=== PATIENT | female | born 1980 | race Hispanic/Latino ===

== ENCOUNTER 2018-11-05 13:39 | Emergency (ER) | payer OTHER, SELFPAY ==
[2018-11-05] MEDS ORDERED: MECLIZINE HCL 12.5 MG TAB ONE ×3 (15:18→18:47)
[2018-11-05] MEDS ORDERED: NA CHLORIDE 0.9% 1,000 ML ONE (15:19)
[2018-11-05] MEDS ORDERED: DIPHENHYDRAMINE 50 MG/ML VIAL ONE (15:19)
[2018-11-05] MEDS ORDERED: ONDANSETRON 4 MG/2 ML VIAL ONE (15:19)
[2018-11-05] MEDS ORDERED: DIAZEPAM 10 MG/2 ML INJ SYRINGE ONE (15:20)
[2018-11-05 16:29] LABS: Albumin 3.7 g/dL (3.4-5.0); Bilirubin Total 0.2 mg/dL (0.2-1.0); Potassium 3.6 mmol/L (3.5-5.1); Protein, Total 8.2 g/dL (6.4-8.2)
[2018-11-05] MEDS ORDERED: PROMETHAZINE 25 MG/ML VIAL ONE (17:12)
--- NOTE | 2018-11-05 18:02 | RAD REPORT ---
EXAM DESCRIPTION: CT - Head Brain Wo Cont - 11/05/2018 5:55 pm CLINICAL HISTORY: DIZZINESS Headache, drowsiness COMPARISON: No comparisons TECHNIQUE: All CT scans are performed using dose optimization technique as appropriate and may inclu de automated exposure control or mA/KV adjustment according to patient size. FINDINGS: No intracranial hemorrhage, hydrocephalus or extra-axial fluid collection.No areas of brai n edema or evidence of midline shift. The paranasal sinuses and mastoids are clear. The calvarium is intact. IMPRESSION: No acute intracranial abnormality.
[2018-11-05 19:40] LABS: Urine Blood TRACE (NEG); Urine Glucose NEGATIVE (NEG); Urine Protein NEGATIVE (NEG); Urine pH 5.5 (5.0-7.0)
--- NOTE | 2018-11-05 20:02 | ER ---
Nurse's Notes [facility] Name: Chelsie Mcclellan Age: 38 yrs Sex: Female : 1980 Arrival Date: 11/05/2018 Time: 13:42 Bed 14 Private MD: Diagnosis: Benign paroxysmal vertigo Presentation: 11/05 13:40 Presenting complaint: EMS states: pt was at work, became very dizzy and nauseated, has sg been vomiting ever since pt is iraqi speaking only. Transition of care: patient was not received from another setting of care. Onset of symptoms was November 05, 2018. Risk Assessment: Do you want to hurt yourself or someone else? Patient reports no desire to harm self or others. Initial Sepsis Screen: Does the patient meet any 2 criteria? No. Patient's initial sepsis screen is negative. Does the patient have a suspected source of infection? No. Patient's initial sepsis screen is negative. Care prior to arrival: None. 13:40 Method Of Arrival: EMS: [facility] sg 13:40 Acuity: KRUPA 3 sg Historical: - Allergies: 13:57 No Known Allergies; sg - Home Meds: 15:23 None [Active]; sg - PMHx: 15:23 Vertigo; sg - PSHx: 13:57 ; sg - Immunization history:: Adult Immunizations up to date. - Social history:: Smoking status: Patient/guardian denies using tobacco, Patient/guardian denies using alcohol, street drugs, The patient lives with family. - Ebola Screening: : Patient negative for fever greater than or equal to 101.5 degrees Fahrenheit, and additional compatible Ebola Virus Disease symptoms Patient denies exposure to infectious person Patient denies travel to an Ebola-affected area in the 21 days before illness onset No symptoms or risks identified at this time. - Family history:: not pertinent. Screenin:26 Abuse screen: Denies threats or abuse. Denies injuries from another. Nutritional sg screening: No deficits noted. Tuberculosis screening: No symptoms or risk factors identified. Never had TB. Fall Risk None identified. Assessment: 13:50 General: Appears in no apparent distress. uncomfortable, ill, well groomed, well sg developed, well nourished, Behavior is cooperative, appropriate for age. Pain: Denies pain. Neuro: Level of Consciousness is awake, alert, obeys commands, Oriented to person, place, time, situation, Manager Filter are equal bilaterally Speech is normal, Facial symmetry appears normal, Reports dizziness. Cardiovascular: Capillary refill is brisk in bilateral fingers Patient's skin is warm and dry. Chest pain is denied. Respiratory: Airway is patent Respiratory effort is even, unlabored, Respiratory pattern is regular, symmetrical. GI: Abdomen is round non-distended, Pt is actively vomiting bile, undigested food, Bowel sounds present X 4 quads. Reports nausea, vomiting. : No signs and/or symptoms were reported regarding the genitourinary system. EENT: No signs and/or symptoms were reported regarding the EENT system. Derm: Skin is intact, is healthy with good turgor, Skin is clammy, Skin is normal, Skin temperature is cool. Musculoskeletal: No signs and/or symptoms reported regarding the musculoskeletal system. 14:55 Reassessment: Patient appears in no apparent distress at this time. Patient and/or sg family updated on plan of care and expected duration. Pain level reassessed. Patient states symptoms have not improved. 15:50 Reassessment: Patient appears in no apparent distress at this time. Patient and/or sg family updated on plan of care and expected duration. Pain level reassessed. pt assisted to the ER restroom, pod 2 via wheelchair, pt reports increased dizziness and nausea while sitting upright in the chair, pt in restrom, actively vomiting noted, pt daughter remains in restroom with pt for safety and assist Patient states symptoms have not improved. 16:30 Reassessment: Patient appears in no apparent distress at this time. Patient and/or sg family updated on plan of care and expected duration. Pain level reassessed. Patient states symptoms have not improved. 17:40 Reassessment: pt offered IVP of Valium 10mg, pt refused per pt daughter due to " it sg just makes me sleepy, it doesn't help with the dizziness." pt reports she will take the PO meclizine as ordered. 18:30 Reassessment: Patient appears in no apparent distress at this time. Patient and/or sg family updated on plan of care and expected duration. Pain level reassessed. pt assisted to ER restroom, tolerated well, denies any nausea or vomiting at this time, reports dizziness remains, will continue to monitor. 19:17 General: Appears in no apparent distress. Behavior is calm, cooperative, appropriate tl2 for age. General: holding valium. Pt is resting comfortably. . Pain: Denies pain. Neuro: Level of Consciousness is awake, alert, obeys commands, Oriented to person, place, time, situation, Reports dizziness, dizziness has improved since treatment. Cardiovascular: Denies chest pain. Respiratory: Airway is patent Respiratory effort is even, unlabored, Respiratory pattern is regular, symmetrical. GI: No signs and/or symptoms were reported involving the gastrointestinal system. GI: Abdomen is non-distended, Reports nausea. : No signs and/or symptoms were reported regarding the genitourinary system. Derm: Skin is pink, warm \\T\\ dry. 19:56 Reassessment: Pt was able to ambulate to restroom with assistance. tl2 20:22 Reassessment: Patient appears in no apparent distress at this time. Patient and/or tl2 family updated on plan of care and expected duration. Pain level reassessed. pt and family verbalized understanding of discharge instructions, need for follow up and prescription usage Patient states feeling better. Vital Signs: 13:56 BP 132 / 88; Pulse 77; Resp 19; Temp 97.7; Pulse Ox 100% ; Pain 0/10; sg 15:27 BP 142 / 80; Pulse 72; Resp 17; Pulse Ox 99% on R/A; Pain 0/10; sg 19:16 BP 129 / 73; Pulse 62; Resp 18; Pulse Ox 100% on R/A; tl2 ED Course: 13:42 Patient arrived in ED. sg 13:43 Felisha Mathias MD is Attending Physician. ma2 13:43 Arm band placed on. sg 13:56 Triage completed. sg 14:40 Missed attempt(s): 22 gauge in right forearm. Bleeding controlled, band aid applied, sg catheter tip intact. 14:45 unable to obtain labs, phlebotomy has been contacted for assistance, spoke with darrius. sg Inserted saline lock: 22 gauge in right forearm, using aseptic technique. Blood collected. 14:48 EKG done, by pet care technician. reviewed by Felisha Mathias MD. at1 15:05 Partha Jacinto, JIMY is Primary Nurse. sg 17:[address] vm2 17:55 CT Head Brain wo Cont In Process Unspecified. EDMS 17:55 CT completed. Patient tolerated procedure well. Patient moved back from CT. nj 19:18 Patient has correct armband on for positive identification. Bed in low position. Call tl2 light in reach. Side rails up X2. Adult w/ patient. 20:23 No provider procedures requiring assistance completed. IV discontinued, intact, tl2 bleeding controlled, No redness/swelling at site. Pressure dressing applied. Administered Medications: 14:10 CANCELLED (Duplicate Order): Antivert 50 mg PO once ma2 15:20 Drug: NS 0.9% 1000 ml Route: IV; Rate: 1 bolus; Site: right forearm; sg 15:20 Drug: Valium 2 mg Route: IVP; Site: right forearm; sg 16:00 Follow up: Response: No adverse reaction; No change in condition sg 15:20 Drug: Benadryl 25 mg Route: IVP; Site: right forearm; sg 16:30 Follow up: Response: No adverse reaction; No change in condition sg 15:20 Drug: Zofran 4 mg Route: IVP; Site: right forearm; sg 15:56 Follow up: Response: No adverse reaction; Nausea is decreased; Vomiting decreased sg 15:50 Drug: Meclizine 50 mg Route: PO; sg 17:24 Follow up: Response: No adverse reaction; No change in condition sg 17:20 Drug: Phenergan 25 mg Route: IVP; Site: right forearm; sg 18:10 Follow up: Response: No adverse reaction; Nausea is decreased sg 17:40 Drug: Antivert 50 mg Route: PO; sg 20:22 Not Given (Physician Discretion): Valium 10 mg IVP once tl2 Point of Care Testing: Blood Glucose: 15:20 Blood Glucose: 108 mg/dL; sg Ranges: Outcome: 20:02 Discharge ordered by . ma2 20:23 Discharged to home via wheelchair, with family. tl2 20:23 Condition: stable 20:23 Discharge instructions given to patient, family, Instructed on discharge instructions, follow up and referral plans. medication usage, Demonstrated understanding of instructions, follow-up care, medications, Prescriptions given X 2. 20:23 Patient left the ED. tl2 Signatures: Dispatcher [employer] EDMS Partha Jacinto RN RN sg Umm Glass, lime kiln worker EKG Tat1 Usha Soriano RN RN tl2 Barron Maravilla Victoria 2 Felisha Mathias MD MD ma2 Corrections: (The following items were deleted from the chart) 19:24 18:40 Antivert 50 mg PO sg sg
--- NOTE | 2018-11-05 20:03 | EDPHYS ---
Physician Documentation [facility] Name: Chelsie Mcclellan Age: 38 yrs Sex: Female : 1980 Arrival Date: 11/05/2018 Time: 13:42 Bed 14 Private MD: ED Physician Felisha Mathias HPI: 11/05 14:11 This 38 yrs old Female presents to ER via EMS with complaints of ma2 Nausea/Vomiting. 14:11 The patient presents to the emergency department with nausea, vomiting, vertigo. Onset: ma2 The symptoms/episode began/occurred suddenly, 1 hour(s) ago. The symptoms are alleviated by antacids. Associated signs and symptoms: Pertinent negatives: abdominal pain, belching, constipation, diarrhea, fever, GI bleeding, hematuria, nausea. Severity of symptoms: At their worst the symptoms were moderate in the emergency department the symptoms are unchanged. The patient has experienced similar episodes in the past. Historical: - Allergies: 13:57 No Known Allergies; sg - Home Meds: 15:23 None [Active]; sg - PMHx: 15:23 Vertigo; sg - PSHx: 13:57 ; sg - Immunization history:: Adult Immunizations up to date. - Social history:: Smoking status: Patient/guardian denies using tobacco, Patient/guardian denies using alcohol, street drugs, The patient lives with family. - Ebola Screening: : Patient negative for fever greater than or equal to 101.5 degrees Fahrenheit, and additional compatible Ebola Virus Disease symptoms Patient denies exposure to infectious person Patient denies travel to an Ebola-affected area in the 21 days before illness onset No symptoms or risks identified at this time. - Family history:: not pertinent. ROS: 14:11 Constitutional: Negative for fever, chills, and weight loss, Neck: Negative for injury, ma2 pain, and swelling. 14:11 ENT: Positive for vertigo . 14:11 All other systems are negative. Exam: 14:11 Constitutional: This is a well developed, well nourished patient who is awake, alert, ma2 and in no acute distress. Head/Face: Normocephalic, atraumatic. Eyes: Pupils equal round and reactive to light, extra-ocular motions intact. Lids and lashes normal. Conjunctiva and sclera are non-icteric and not injected. Cornea within normal limits. Periorbital areas with no swelling, redness, or edema. ENT: Nares patent. No nasal discharge, no septal abnormalities noted. Tympanic membranes are normal and external auditory canals are clear. Oropharynx with no redness, swelling, or masses, exudates, or evidence of obstruction, uvula midline. Mucous membranes moist. Chest/axilla: Normal chest wall appearance and motion. Nontender with no deformity. No lesions are appreciated. Cardiovascular: Regular rate and rhythm with a normal S1 and S2. No gallops, murmurs, or rubs. Normal PMI, no JVD. No pulse deficits. Respiratory: Lungs have equal breath sounds bilaterally, clear to auscultation and percussion. No rales, rhonchi or wheezes noted. No increased work of breathing, no retractions or nasal flaring. Abdomen/GI: Soft, non-tender, with normal bowel sounds. No distension or tympany. No guarding or rebound. No evidence of tenderness throughout. Skin: Warm, dry with normal turgor. Normal color with no rashes, no lesions, and no evidence of cellulitis. MS/ Extremity: Pulses equal, no cyanosis. Neurovascular intact. Full, normal range of motion. Neuro: Awake and alert, GCS 15, oriented to person, place, time, and situation. Cranial nerves II-XII grossly intact. Motor strength 5/5 in all extremities. Sensory grossly intact. Cerebellar exam normal. Normal gait. Vital Signs: 13:56 BP 132 / 88; Pulse 77; Resp 19; Temp 97.7; Pulse Ox 100% ; Pain 0/10; sg 15:27 BP 142 / 80; Pulse 72; Resp 17; Pulse Ox 99% on R/A; Pain 0/10; sg 19:16 BP 129 / 73; Pulse 62; Resp 18; Pulse Ox 100% on R/A; tl2 MDM: 13:43 Patient medically screened. ma2 14:11 Differential diagnosis: gastritis, gastroenteritis, benign positional vertigo. ma2 17:30 Data reviewed: vital signs, nurses notes. ma2 20:02 Counseling: I had a detailed discussion with the patient and/or guardian regarding: the ct2 historical points, exam findings, and any diagnostic results supporting the discharge/admit diagnosis, the presence of at least one elevated blood pressure reading (>120/80) during this emergency department visit. Response to treatment: the patient's symptoms have resolved after treatment. 11/05 14:09 Order name: CMP; Complete Time: 16:53 ma2 11/05 17:31 Order name: CT Head Brain wo Cont; Complete Time: 20:03 ma2 11/05 17:37 Order name: Urine Dipstick--Ancillary (enter results); Complete Time: 20:03 bd 11/05 17:37 Order name: Urine --Ancillary (enter results); Complete Time: 20:03 bd 11/05 19:11 Order name: Glucose, Ancillary Testing; Complete Time: 20:03 EDMS 11/05 14:09 Order name: Urine Dipstick-Ancillary (obtain specimen); Complete Time: 19:25 ma2 11/05 15:19 Order name: EKG Electrocardiogram EDMS Administered Medications: 14:10 CANCELLED (Duplicate Order): Antivert 50 mg PO once ma2 15:20 Drug: NS 0.9% 1000 ml Route: IV; Rate: 1 bolus; Site: right forearm; sg 15:20 Drug: Valium 2 mg Route: IVP; Site: right forearm; sg 16:00 Follow up: Response: No adverse reaction; No change in condition sg 15:20 Drug: Benadryl 25 mg Route: IVP; Site: right forearm; sg 16:30 Follow up: Response: No adverse reaction; No change in condition sg 15:20 Drug: Zofran 4 mg Route: IVP; Site: right forearm; sg 15:56 Follow up: Response: No adverse reaction; Nausea is decreased; Vomiting decreased sg 15:50 Drug: Meclizine 50 mg Route: PO; sg 17:24 Follow up: Response: No adverse reaction; No change in condition sg 17:20 Drug: Phenergan 25 mg Route: IVP; Site: right forearm; sg 18:10 Follow up: Response: No adverse reaction; Nausea is decreased sg 17:40 Drug: Antivert 50 mg Route: PO; sg 20:22 Not Given (Physician Discretion): Valium 10 mg IVP once tl2 Point of Care Testing: Blood Glucose: 15:20 Blood Glucose: 108 mg/dL; sg Ranges: Critical Glucose Levels:Adult <50 mg/dl or >400 mg/dl <40 mg/dl or >180 mg/dl Disposition: 11/05/18 20:02 Discharged to Home. Impression: Benign paroxysmal vertigo. - Condition is Stable. - Discharge Instructions: Benign Positional Vertigo. - Prescriptions for Meclizine 25 mg Oral Tablet - take 1 tablet by ORAL route every 8 hours As needed; 30 tablet. Valium 2 mg Oral Tablet - take 1 tablet by ORAL route every 8 hours As needed; 20 tablet. - Work release form, Family Work Release, Medication Reconciliation Form, Thank You Letter, Antibiotic Education, Prescription Opioid Use form. - Follow up: Private Physician; When: Tomorrow; Reason: Continuance of care. Signatures: Dispatcher [employer] EDMS Partha Jacinto RN RN sg Usha Soriano RN RN tl2 Felisha Mathias MD MD ma2 Corrections: (The following items were deleted from the chart) 14:10 14:09 Antivert 50 mg PO once ordered. ma2 ma2 20:23 20:02 11/05/2018 20:02 Discharged to Home. Impression: Benign paroxysmal vertigo. tl2 Condition is Stable. Discharge Instructions: Benign Positional Vertigo. Prescriptions for Meclizine 25 mg Oral Tablet - take 1 tablet by ORAL route every 8 hours As needed; 30 tablet, Valium 2 mg Oral Tablet - take 1 tablet by ORAL route every 8 hours As needed; 20 tablet. and Forms are Thank You Letter, Medication Reconciliation Form, Antibiotic Education, Prescription Opioid Use. Follow up: Private Physician; When: Tomorrow; Reason: Continuance of care. ma2
--- NOTE | 2018-11-07 10:31 | EKG ---
Test Date: 2018-11-05 Test Time: 14:14:38 Junior Programmer Analyst: EARLINE MEASUREMENT RESULTS: Intervals: Rate: 92 FL: 148 QRSD: 80 QT: 378 QTc: 467 [place]: P: 51 FL: 148 QRS: 48 T: -12 INTERPRETIVE STATEMENTS: Normal sinus rhythm Non specific T abnormality Abnormal ECG No previous ECG available for comparison Electronically Signed On 11-06-18 08:12:02 CDT by Josh Clay
== END 2018-11-05 20:23 | disposition home or self-care (01) ==
LOC: ER 13:39
DX: H81.10 Benign paroxysmal vertigo, unspecified ear (principal); R11.2 Nausea with vomiting, unspecified
CPT/HCPCS: 36415; 70450; 80053; 81003; 81025; 82962; 93005; 96374; 96375; 99285; J2405; J2550; J3360; J7030

== ENCOUNTER 2019-10-29 20:46 | Emergency (ER) | payer SELFPAY ==
[2019-10-29] MEDS ORDERED: MORPHINE 2 MG/ML SYR ONE (21:49)
[2019-10-29] MEDS ORDERED: ONDANSETRON 4 MG/2 ML VIAL ONE (21:49)
[2019-10-29] MEDS ORDERED: NA CHLORIDE 0.9% 1,000 ML ONE (21:49)
[2019-10-29 21:58] LABS: Absolute Lymphocytes (CBC) 1.8 K/uL (0.7-4.9); Basophils % 0.6 % (0-1.3); Hematocrit 38.9 % (36.0-45.0); Lymphocytes % 15.2 % (15.3-44.8); MPV 10.1 fL (7.6-11.3); RBC Red Blood Cell Count 4.29 M/uL (3.86-4.86)
[2019-10-29 22:22] LABS: ALT/SGPT 25 U/L (12-78); AST/SGOT 13 U/L (15-37); Albumin 3.6 g/dL (3.4-5.0); Alkaline Phosphatase 86 U/L (45-117); BUN Blood Urea Nitrogen 8 mg/dL (7-18); Bicarbonate 25 mmol/L (21-32); Bilirubin Direct < 0.1 mg/dL (0-0.2); Bilirubin Total 0.2 mg/dL (0.2-1.0); Glucose Level 91 mg/dL (74-106); Lipase 88 U/L (73-393); Potassium 3.8 mmol/L (3.5-5.1); Protein, Total 8.3 g/dL (6.4-8.2); Sodium Level 139 mmol/L (136-145)
[2019-10-29 22:51] LABS: Urine Blood 3+ (NEG); Urine Glucose NEGATIVE (NEG); Urine Protein NEGATIVE (NEG); Urine Specific Gravity 1.015 (1.005-1.030)
[2019-10-29 22:53] LABS: Urine Bacteria <20 /HPF (<20); Urine RBC >50 /HPF (NONE SEEN); Urine Urothelial Cells <5 /HPF (NONE SEEN)
[2019-10-29 22:54] LABS: Urine Culture Reflex Order NOT NEEDED
[2019-10-30] MEDS ORDERED: CEFTRIAXONE/SWI 1gm 1 GM/10 ML SYR ONE (00:08)
--- NOTE | 2019-10-30 00:31 | ER ---
Nurse's Notes [facility] Name: Chelsie Mcclellan Age: 39 yrs Sex: Female : 1980 Arrival Date: 10/29/2019 Time: 20:48 Bed 24 Private MD: Diagnosis: Urinary tract infection, site not specified;Calculus of kidney-right Presentation: 10/28 20:53 Chief complaint: Patient states: Abdominal pain since today. Reports nausea. Denies ca1 vomiting and diarrhea. Coronavirus screen: The patient has NOT traveled to a country currently being monitored by the [facility] within the last 14 days. The patient has NOT had contact with any known and/or suspected case of coronavirus. Ebola Screen: Patient negative for fever greater than or equal to 101.5 degrees Fahrenheit, and additional compatible Ebola Virus Disease symptoms Patient denies exposure to infectious person. Patient denies travel to an Ebola-affected area in the 21 days before illness onset. No symptoms or risks identified at this time. Initial Sepsis Screen: Does the patient meet any 2 criteria? No. Patient's initial sepsis screen is negative. Does the patient have a suspected source of infection? No. Patient's initial sepsis screen is negative. Risk Assessment: Do you want to hurt yourself or someone else? Patient reports no desire to harm self or others. Onset of symptoms was October 29, 2019. 20:53 Method Of Arrival: Ambulatory ca1 20:53 Acuity: KRUPA 3 ca1 20:58 Chief complaint: Patient states: Reports 3 positive UPT, 2 negative Serum PT. 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 - Social history:: Smoking status: Patient denies any tobacco usage or history of. Screenin:15 Abuse screen: Denies threats or abuse. Denies injuries from another. Nutritional wh screening: No deficits noted. Tuberculosis screening: No symptoms or risk factors identified. Fall Risk None identified. Assessment: 21:10 General: Appears in no apparent distress. uncomfortable, Behavior is calm, cooperative, wh appropriate for age. Pain: Complains of pain in right upper quadrant and right lower quadrant Pain does not radiate. Pain currently is 8 out of 10 on a pain scale. Quality of pain is described as crampy, Pain began suddenly. Neuro: Level of Consciousness is awake, alert, obeys commands, Oriented to person, place, time, situation, Appropriate for age. Cardiovascular: Heart tones S1 S2. Respiratory: Airway is patent Respiratory effort is even, unlabored, Respiratory pattern is regular, symmetrical, Breath sounds are clear bilaterally. GI: Abdomen is flat, non-distended, Bowel sounds present X 4 quads. Abd is soft Abdomen is tender to palpation in right upper quadrant and right lower quadrant Reports nausea. : No signs and/or symptoms were reported regarding the genitourinary system. EENT: No signs and/or symptoms were reported regarding the EENT system. Derm: Skin is intact, is healthy with good turgor, Skin is pink, warm \T\ dry. normal. Musculoskeletal: Circulation, motion, and sensation intact. 22:03 Reassessment: Patient appears in no apparent distress at this time. No changes from previously documented assessment. Patient and/or family updated on plan of care and expected duration. Pain level reassessed. Patient is alert, oriented x 3, equal unlabored respirations, skin warm/dry/pink. 23:17 Reassessment: Patient appears in no apparent distress at this time. Patient and/or fu family updated on plan of care and expected duration. Pain level reassessed. Patient is alert, oriented x 3, equal unlabored respirations, skin warm/dry/pink. 10/29 00:00 Reassessment: Patient appears in no apparent distress at this time. No changes from previously documented assessment. Patient is alert, oriented x 3, equal unlabored respirations, skin warm/dry/pink. Vital Signs: 10/28 20:55 BP 117 / 73; Pulse 81; Resp 17 S; Temp 98(TE); Pulse Ox 98% on R/A; Weight 77.11 kg ca1 (R); Height 5 ft. 3 in. (160.02 cm); Pain 8/10; 20:58 BP 117 / 73; Pulse 80; Resp 17 S; Temp 98(TE); Pulse Ox 98% on R/A; Weight 77.11 kg ca1 (R); Height 5 ft. 3 in. (160.02 cm) (R); Pain 8/10; 22:03 BP 137 / 79; Pulse 68; Resp 18; Pulse Ox 100% on R/A; wh 23:19 BP 112 / 79; Pulse 72; Resp 18; Pulse Ox 100% on R/A; fu 20:58 Body Mass Index 30.11 (77.11 kg, 160.02 cm) ca1 ED Course: 20:48 Patient arrived in ED. cl3 20:54 Triage completed. ca1 20:55 Arm band placed on right wrist. ca1 20:59 Micah Hughes PA is PHCP. cp 20:59 Cesar Acosta MD is Attending Physician. cp 21:15 Patient has correct armband on for positive identification. Bed in low position. Call light in reach. Side rails up X 1. Pulse ox on. NIBP on. 21:40 Lei Briceño is Primary Nurse. 21:48 Radiology exam delayed due to lab results not completed at this time. (BUN/Creatinine) vm2 test not completed at this time. 21:49 Inserted saline lock: 22 gauge in left forearm, using aseptic technique. jp3 21:49 Initial lab(s) drawn, by nd, sent to lab. Patient maintains SpO2 saturation greater jp3 than 95% on room air. 22:00 Urine collected: clean catch specimen, clear, blood tinged. jp3 22:05 Warm blanket given. Verbal reassurance given. jp3 23:05 CT Abd/Pelvis - IV Contrast Only In Process Unspecified. EDMS 23:18 Primary Nurse role handed off by Lei Briceño fu 23:18 Rolando Brooks, RN is Primary Nurse. fu 23:50 Inserted saline lock: 22 gauge in right hand, using aseptic technique. fu 03 01:00 No provider procedures requiring assistance completed. IV discontinued, bleeding fu controlled, Pressure dressing applied. Administered Medications: 10/28 21:56 Drug: NS 0.9% 1000 ml Route: IV; Rate: 1 bolus; Site: left forearm; 21:58 Drug: morphine 2 mg Route: IVP; Site: left forearm; 22:00 Drug: Zofran (Ondansetron) 4 mg Route: IVP; Site: left forearm; 10/29 00:21 Drug: Rocephin - (cefTRIAXone) 1 grams Route: IVPB; Infused Over: 30 mins; Site: right fu hand; 01:00 Follow up: Response: No adverse reaction fu 00:56 Drug: TORadol - Ketorolac 15 mg Route: IVP; Site: right hand; fu 01:00 Follow up: Response: Medication administered at discharge. fu Outcome: 00:30 Discharge ordered by MD. cp 01:05 Discharged to home ambulatory, with family. fu 01:05 Condition: stable 01:05 Discharge instructions given to patient, family, Instructed on discharge instructions, follow up and referral plans. Demonstrated understanding of instructions, follow-up care, Prescriptions given X 3. 01:08 Patient left the ED. fu Signatures: Dispatcher [employer] EDMS Micah Hughes PA PA cp McGuire, Victoria 2 Lei Briceño Rolando Brooks RN RN Abdias Bella jp3 Raya Zacarias RN RN [facility] Alexx Sneed cl3 Corrections: (The following items were deleted from the chart) 10/28 22:54 22:53 Reassessment: Patient appears in no apparent distress at this time. No changes wh from previously documented assessment. Patient and/or family updated on plan of care and expected duration. Pain level reassessed. Patient is alert/active/playful, equal unlabored respirations, skin warm/dry/pink. Patient states feeling better. 23:19 23:17 Report received from JIMY Odom [facility] [place] 10/29 01:05 01:04 Inserted saline lock: 22 gauge in right hand, using aseptic technique. fu fu
--- NOTE | 2019-10-30 00:31 | EDPHYS ---
Physician Documentation [facility] Name: Chelsie Mcclellan Age: 39 yrs Sex: Female : 1980 Arrival Date: 10/29/2019 Time: 20:48 Bed 24 Private MD: ED Physician Cesar Acosta HPI: 10/28 21:30 This 39 yrs old Female presents to ER via Ambulatory with complaints of cp Abdominal Pain. 21:30 The patient presents with abdominal pain in the right upper quadrant, right lower cp quadrant. Onset: The symptoms/episode began/occurred today. Associated signs and symptoms: Pertinent positives: nausea, vaginal bleeding, Pertinent negatives: constipation, diarrhea, fever, vomiting. Severity of pain: in the emergency department the pain is unchanged despite home interventions. 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 - Social history:: Smoking status: Patient denies any tobacco usage or history of. ROS: 21:40 Constitutional: Negative for body aches, chills, fever, poor PO intake. cp 21:40 Eyes: Negative for injury, pain, redness, and discharge. cp 21:40 ENT: Negative for drainage from ear(s), ear pain, sore throat, difficulty swallowing, difficulty handling secretions. 21:40 Cardiovascular: Negative for chest pain, palpitations. 21:40 Respiratory: Negative for cough, shortness of breath, wheezing. 21:40 Abdomen/GI: Positive for abdominal pain, nausea, of the right upper quadrant and right lower quadrant, Negative for vomiting, diarrhea, constipation, anorexia. 21:40 Back: Negative for radiated pain. 21:40 : Positive for vaginal bleeding. 21:40 Neuro: Negative for altered mental status, headache, weakness. 21:40 All other systems are negative. Exam: 21:45 Constitutional: The patient appears in no acute distress, alert, awake, non-toxic, well cp developed, well nourished. 21:45 Head/Face: Normocephalic, atraumatic. cp 21:45 Eyes: Periorbital structures: appear normal, Conjunctiva: normal, no exudate, no injection, Sclera: no appreciated abnormality, Lids and lashes: appear normal, bilaterally. 21:45 ENT: External ear(s): are unremarkable, Nose: is normal, Mouth: Lips: moist, Oral mucosa: pink and intact, moist, Posterior pharynx: is normal, airway is patent, no erythema, no exudate. 21:45 Chest/axilla: Inspection: normal, Palpation: is normal, no crepitus, no tenderness. 21:45 Cardiovascular: Rate: normal, Rhythm: regular. 21:45 Respiratory: the patient does not display signs of respiratory distress, Respirations: normal, no use of accessory muscles, no retractions, labored breathing, is not present, Breath sounds: are clear throughout, no decreased breath sounds, no stridor, no wheezing. 21:45 Abdomen/GI: Inspection: abdomen appears normal, Bowel sounds: active, all quadrants, Palpation: soft, in all quadrants, moderate abdominal tenderness, in the right upper quadrant and right lower quadrant, rebound tenderness, is not appreciated, voluntary guarding, is elicited in the right upper quadrant and right lower quadrant. 21:45 Back: ROM is normal. 21:45 Skin: no rash present. 21:45 Neuro: Orientation: to person, place \T\ time. Mentation: is normal. Vital Signs: 20:55 BP 117 / 73; Pulse 81; Resp 17 S; Temp 98(TE); Pulse Ox 98% on R/A; Weight 77.11 kg ca1 (R); Height 5 ft. 3 in. (160.02 cm); Pain 8/10; 20:58 BP 117 / 73; Pulse 80; Resp 17 S; Temp 98(TE); Pulse Ox 98% on R/A; Weight 77.11 kg ca1 (R); Height 5 ft. 3 in. (160.02 cm) (R); Pain 8/10; 22:03 BP 137 / 79; Pulse 68; Resp 18; Pulse Ox 100% on R/A; wh 23:19 BP 112 / 79; Pulse 72; Resp 18; Pulse Ox 100% on R/A; fu 20:58 Body Mass Index 30.11 (77.11 kg, 160.02 cm) ca1 MDM: 21:10 Patient medically screened. cp 22:00 Differential diagnosis: appendicitis, cholecystitis, Cholelithiasis, Ectopic , cp non-specific abd pain, Pyelonephritis, Ureterolithiasis, urinary tract infection. 10/29 00:30 Data reviewed: vital signs, nurses notes, lab test result(s), radiologic studies, CT cp scan, and as a result, I will discharge patient. 00:30 Special discussion: Based on the patient's Hx, exam, and Dx evaluation, there is no cp indication for emergent surgery or inpatient Tx. It is understood by the patient/guardian that if the Sx's persist or worsen they need to return immediately for re-evaluation. 00:30 Counseling: I had a detailed discussion with the patient and/or guardian regarding: the cp historical points, exam findings, and any diagnostic results supporting the discharge/admit diagnosis, lab results, radiology results, to return to the emergency department if symptoms worsen or persist or if there are any questions or concerns that arise at home. 00:30 Response to treatment: the patient's symptoms have markedly improved after treatment, cp and as a result, I will discharge patient. 10/28 21:24 Order name: Basic Metabolic Panel; Complete Time: 22:38 cp / 22:38 Interpretation: Normal except: CL 108; GFR 82. cp / 21:24 Order name: CBC with Diff; Complete Time: 22:02 cp /04 22:03 Interpretation: Normal except: WBC 11.8; BIANCA% 74.0; LYM% 15.2; NEUT A 8.8. cp 10/28 21:24 Order name: Creatinine for Radiology; Complete Time: 23:04 cp / 21:24 Order name: Hepatic Function; Complete Time: 22:38 cp 03/04 22:38 Interpretation: Normal except: AST 13; TP 8.3; GLOB 4.7; A/G 0.8. cp / 21:24 Order name: Lipase; Complete Time: 22:38 cp / 21:32 Order name: Urine Microscopic Only; Complete Time: 23:04 cp /04 23:04 Interpretation: Normal except: URBC >50. cp 10/28 21:32 Order name: CT Abd/Pelvis - IV Contrast Only cp / 22:13 Order name: Urine Dipstick--Ancillary (enter results); Complete Time: 23:04 mw2 10/28 23:04 Interpretation: Normal except: UBLD 3+; U NIT POSITIVE. cp 10/28 22:13 Order name: Urine --Ancillary (enter results); Complete Time: 23:04 mw2 10/28 21:24 Order name: IV Saline Lock; Complete Time: 22:01 cp 10/28 21:24 Order name: Labs collected and sent; Complete Time: 22:01 cp 10/28 21:32 Order name: Urine Dipstick-Ancillary (obtain specimen); Complete Time: 22:13 cp 10/28 21:32 Order name: Urine Test (obtain specimen); Complete Time: 22:12 cp Administered Medications: 10/28 21:56 Drug: NS 0.9% 1000 ml Route: IV; Rate: 1 bolus; Site: left forearm; 21:58 Drug: morphine 2 mg Route: IVP; Site: left forearm; 22:00 Drug: Zofran (Ondansetron) 4 mg Route: IVP; Site: left forearm; 10/29 00:21 Drug: Rocephin - (cefTRIAXone) 1 grams Route: IVPB; Infused Over: 30 mins; Site: right fu hand; 01:00 Follow up: Response: No adverse reaction fu 00:56 Drug: TORadol - Ketorolac 15 mg Route: IVP; Site: right hand; 01:00 Follow up: Response: Medication administered at discharge. Disposition: 06:05 Co-signature as Attending Physician, Cesar Acosta MD I agree with the assessment and 4 plan of care. Disposition: 10/30/19 00:30 Discharged to Home. Impression: Urinary tract infection, site not specified, Calculus of kidney - right. - Condition is Stable. - Discharge Instructions: Kidney Stones, Urinary Tract Infection, Adult. - Prescriptions for Ibuprofen 800 mg Oral Tablet - take 1 tablet by ORAL route every 8 hours As needed take with food; 30 tablet. Zofran 4 mg Oral Tablet - take 1 tablet by ORAL route every 12 hours As needed; 20 tablet. Bactrim DS 800- 160 mg Oral Tablet - take 1 tablet by ORAL route every 12 hours for 7 days; 14 tablet. - Medication Reconciliation Form, Thank You Letter, Antibiotic Education, Prescription Opioid Use form. - Follow up: Private Physician; When: 2 - 3 days; Reason: Recheck today's complaints. - Problem is new. - Symptoms have improved. Signatures: Dispatcher [employer] EDMS Micah Hughes PA PA cp Habalo, Winsy wh Umadhay, Felix, RN RN Cesar Han MD MD tw4 Raya Zacarias RN RN ca1 Corrections: (The following items were deleted from the chart) 01:08 00:30 10/30/2019 00:30 Discharged to Home. Impression: Urinary tract infection, site fu not specified; Calculus of kidney - right. Condition is Stable. Forms are Medication Reconciliation Form, Thank You Letter, Antibiotic Education, Prescription Opioid Use. Follow up: Private Physician; When: 2 - 3 days; Reason: Recheck today's complaints. Problem is new. Symptoms have improved. cp
[2019-10-30] MEDS ORDERED: KETOROLAC 30 MG/ML INJ ONE (00:56)
[2019-10-30 01:20] VITALS: TEMP 98
[2019-10-30 01:26] VITALS: BP 112/79; O2SAT 100
--- NOTE | 2019-10-30 10:06 | RAD REPORT ---
EXAM DESCRIPTION: CT - Abdomen Pelvis W Contrast - 10/30/2019 7:19 am CLINICAL HISTORY: Right side abdominal pain COMPARISON: None Available. TECHNIQUE: CT of the abdomen and pelvis performed following IV administration of iodinated contrast. FINDINGS: Lung Bases: The visualized lung bases are clear. Bones: No destructive bone lesions identified. Abdomen: Liver: The liver has normal size and density. No intrahepatic mass or biliary dilatation. Gallbladder: No calcified gallstones. Spleen, Pancreas, and Adrenal Glands: The spleen, pancreas, and adrenal glands are unremarkable. Kidneys: The kidneys have normal size without evidence of solid mass or hydronephrosis. Vasculature: The aorta and IVC have normal caliber and position. The portal vein is patent. The pro ximal visceral and renal arteries are patent. Nonobstructing right nephrolithiasis. Stomach: The stomach and duodenum have normal course. Other: No free intraperitoneal air. No free fluid or lymphadenopathy. Pelvis: Bladder: Urinary bladder is unremarkable. Bowel: No dilated loops of large or small bowel. Appendix: Normal appendix. Pelvis: Lobulated contours of the uterus with heterogeneous myometrium. IMPRESSION: 1. No acute inflammatory or obstructive process identified. 2. Nonobstructing right nephrolithiasis. 3. Fibroid uterus. This exam was performed according to our departmental dose-optimization program, which includes autom ated exposure control, adjustment of the mA and/or kV according to patient size and/or use of iterati ve reconstruction technique. Electronically signed by: Ander Park 10/29/2019 11:34 PM ARTIST WOODBLOCK Due to temporary technical issues with the PACS/Fluency reporting system, reports are being signed by the in house radiologist as a courtesy to ensure prompt reporting. The interpreting radiologist is f ryanly responsible for the content of the report.
== END 2019-10-30 01:08 | disposition home or self-care (01) ==
LOC: ER 20:46
DX: N39.0 Urinary tract infection, site not specified (principal); N20.0 Calculus of kidney
CPT/HCPCS: 36415; 74177; 80048; 80076; 81003; 81015; 81025; 83690; 85025; 96374; 96375; 99284; J0696; J2270; J2405; J7030; Q9967

== ENCOUNTER 2020-06-25 13:55 | Emergency (ER) | payer SELFPAY ==
[2020-06-25] MEDS ORDERED: CEFAZOLIN/SWI 1gm 1 GM/10 ML SYR ONE (14:13)
[2020-06-25] MEDS ORDERED: TETANUS & DIPHTHERIA TOX,ADULT 0.5 ML VIAL ONE (14:13)
[2020-06-25] MEDS ORDERED: PROMETHAZINE INJ 25 MG/ML AMP ONE (14:13)
[2020-06-25] MEDS ORDERED: SILVER SULFADIAZINE 1% 25 GM TOP ONE (14:13)
[2020-06-25] MEDS ORDERED: NA CHLORIDE 0.9% 1,000 ML ONE (14:13)
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
[2020-06-25] MEDS ORDERED: MORPHINE 4 MG/ML SYR ONE ×2 (15:13→15:46)
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
[2020-06-25 15:47] VITALS: TEMP 99.1
[2020-06-25 15:48] VITALS: O2SAT 100
[2020-06-25 15:49] VITALS: BP 150/77
== END 2020-06-25 15:40 | disposition short-term general hospital (02) ==
LOC: ER 13:55
DX: L24.1 Irritant contact dermatitis due to oils and greases (principal); T22.212A Burn of second degree of left forearm, initial encounter; T22.211A Burn of second degree of right forearm, initial encounter; T22.232A Burn of second degree of left upper arm, initial encounter; T22.231A Burn of second degree of right upper arm, initial encounter; T23.252A Burn of second degree of left palm, initial encounter; T23.251A Burn of second degree of right palm, initial encounter; T31.0 Burns involving less than 10% of body surface; X10.2XXA Contact with fats and cooking oils, initial encounter; Y93.G3 Activity, cooking and baking; Y92.000 Kitchen of unspecified non-institutional (private) residence as the place of occurrence of the external cause
CPT/HCPCS: 71045; 90471; 90714; 96361; 96374; 96375; 99285; J0690; J2550; J7030

== ENCOUNTER 2021-01-21 12:42 | Emergency (ER) | payer SELFPAY ==
--- OUTSIDE RECORDS SUMMARY | 2021-01-21 12:45 | XMS REPORT | Continuity of Care Document ---
:1980 Author Organization [facility] t Address [address] [place] [address] Care Team Providers Name Role Phone Room, Therapy Tub Attending Clinician Unavailable Nahomy MCGARRY, Cammie Attending Clinician Mateusz MCGARRY O Attending Clinician Problems This patient has no known problems. Allergies, Adverse Reactions, Alerts This patient has no known allergies or adverse reactions. Medications This patient has no known medications. Procedures This patient has no known procedures. Encounters Start End Encounter Admission Attending Care Care Encounter Source Date/Time Date/Time Type Type Clinicians Facility Department ID 2020-07-09 2020-07-09 Ancillary Room, Esthela [id number] 09:42:24 10:42:24 Visit DollyJoanie Cheng [id number] [place] [id number] 2020-07-08 2020-07-08 [facility] Myren Esthela [id number] 12:13:08 23:59:00 Encounter Michael Cheng [id number] [place] [id number] 2020-07-04 2020-07-04 [facility] LisandrohectorDolly mcclurenie [id number] 09:06:00 23:59:00 Encounter Michael Cheng [id number] [place] [id number] 2020-06-30 2020-06-30 Ancillary Room, Esthela [id number] 08:06:31 09:06:31 Visit Dolly-Dorian Prosper [id number] [facility] [id number] 2020-06-29 2020-06-29 [facility] Mateusz Corona Proctor [id number] 12:30:00 23:59:00 Encounter Prosper [id number] [facility] [id number] Results This patient has no known results.
--- NOTE | 2021-01-21 14:02 | RAD REPORT ---
EXAM DESCRIPTION: CT - Head Brain Wo Cont - 01/21/2021 1:54 pm CLINICAL HISTORY: Dizziness COMPARISON: 2019 TECHNIQUE: Computed axial tomography of the head was obtained. IV contrast was not requested. All CT scans are performed using dose optimization technique as appropriate and may include automated exposure control or mA/KV adjustment according to patient size. FINDINGS: An intracranial bleed is not seen . The ventricles are normal in caliber. No extra-axial fluid collection is noted. Mild to moderate low-density areas within periventricular, deep and subcortical white matter likely r epresent ischemic changes secondary to small vessel disease. Fluid within the sinuses/ mastoids is not seen. IMPRESSION: No acute intracranial abnormality is seen. If patient's symptoms persist MRI of the bra in would be recommended.
[2021-01-21] MEDS ORDERED: MECLIZINE HCL 12.5 MG TAB ONE (14:46)
[2021-01-21] MEDS ORDERED: NA CHLORIDE 0.9% 1,000 ML ONE (14:46)
[2021-01-21] MEDS ORDERED: DIAZEPAM 10 MG/2 ML INJ SYRINGE ONE (14:46)
--- NOTE | 2021-01-21 16:52 | EDPHYS ---
Physician Documentation [facility] Name: Chelsie Scales Age: 40 yrs Sex: Female : 1980 Arrival Date: 01/21/2021 Time: 12:45 Bed 17 Private MD: ED Physician Olaf Hurd HPI: 01/21 14:36 This 40 yrs old Female presents to ER via Wheelchair with complaints of jr8 Vertigo. 14:36 Onset: The symptoms/episode began/occurred gradually, 3 day(s) ago. Context: occurred jr8 at home. Modifying factors: The symptoms are alleviated by closing eyes, holding head still, the symptoms are aggravated by movement of head, changing position. Associated signs and symptoms: Pertinent positives: nausea. Severity of symptoms: At their worst the symptoms were moderate in the emergency department the symptoms have improved mildly. Patient's baseline: Neuro: alert and fully oriented, Motor: no deficits, Ambulation: walks without assistance, Speech: normal. The patient has experienced similar episodes in the past, a few times. The patient has been recently seen by a physician:. Patient with history of vertigo in past. State that she started with flare about 3 days ago and saw PCP who started her on medication. Stated that she has ringing in left ear as well. No official diagnosis of Meniere but has been suggestive in past per family. Has not f/u with ENT as well. Came to ED today for persistent symptoms despite being on meclizine currently . Historical: - Allergies: 13:02 No Known Allergies; ll1 - PMHx: 13:02 Vertigo; ll1 - PSHx: 13:02 ; ll1 - Immunization history:: Client reports receiving the 2nd dose of the Covid vaccine, Flu vaccine is up to date. - Social history:: Smoking status: Patient denies any tobacco usage or history of. ROS: 14:36 Eyes: Negative for injury, pain, redness, and discharge, ENT: Negative for injury, jr8 pain, and discharge, Neck: Negative for injury, pain, and swelling, Cardiovascular: Negative for chest pain, palpitations, and edema, Respiratory: Negative for shortness of breath, cough, wheezing, and pleuritic chest pain, Abdomen/GI: Negative for abdominal pain, nausea, vomiting, diarrhea, and constipation, Back: Negative for injury and pain, MS/Extremity: Negative for injury and deformity, Skin: Negative for injury, rash, and discoloration. 14:36 Neuro: Positive for dizziness. Exam: 14:36 Eyes: Pupils equal round and reactive to light, extra-ocular motions intact. Lids and jr8 lashes normal. Conjunctiva and sclera are non-icteric and not injected. Cornea within normal limits. Periorbital areas with no swelling, redness, or edema. ENT: Nares patent. No nasal discharge, no septal abnormalities noted. Tympanic membranes are normal and external auditory canals are clear. Oropharynx with no redness, swelling, or masses, exudates, or evidence of obstruction, uvula midline. Mucous membranes moist. Neck: Trachea midline, no thyromegaly or masses palpated, and no cervical lymphadenopathy. Supple, full range of motion without nuchal rigidity, or vertebral point tenderness. No Meningismus. Cardiovascular: Regular rate and rhythm with a normal S1 and S2. No gallops, murmurs, or rubs. Normal PMI, no JVD. No pulse deficits. Respiratory: Lungs have equal breath sounds bilaterally, clear to auscultation and percussion. No rales, rhonchi or wheezes noted. No increased work of breathing, no retractions or nasal flaring. Abdomen/GI: Soft, non-tender, with normal bowel sounds. No distension or tympany. No guarding or rebound. No evidence of tenderness throughout. Skin: Warm, dry with normal turgor. Normal color with no rashes, no lesions, and no evidence of cellulitis. MS/ Extremity: Pulses equal, no cyanosis. Neurovascular intact. Full, normal range of motion. Neuro: Awake and alert, GCS 15, oriented to person, place, time, and situation. Cranial nerves II-XII grossly intact. Motor strength 5/5 in all extremities. Sensory grossly intact. Cerebellar exam normal. Vital Signs: 12:59 BP 132 / 79; Pulse 78; Resp 17; Temp 99.0; Pulse Ox 100% ; Weight 80.74 kg; Height 5 ll1 ft. 5 in. (165.10 cm); Pain 0/10; 14:40 BP 141 / 71; Pulse 75; Resp 17 S; Pulse Ox 98% on R/A; jd3 15:42 BP 129 / 68; Pulse 67; Resp 16 S; Pulse Ox 97% on R/A; jd3 17:11 BP 127 / 71; Pulse 70; Resp 17 S; Pulse Ox 100% on R/A; jd3 19:10 BP 130 / 70; Pulse 72; Resp 15 S; Pulse Ox 98% on R/A; ad5 12:59 Body Mass Index 29.62 (80.74 kg, 165.10 cm) ll1 MDM: 13:04 Patient medically screened. jr8 16:43 Data reviewed: vital signs, nurses notes, radiologic studies, CT scan. Data jr8 interpreted: Pulse oximetry: on room air is 97 %. Interpretation: normal. Counseling: I had a detailed discussion with the patient and/or guardian regarding: the historical points, exam findings, and any diagnostic results supporting the discharge/admit diagnosis, radiology results, the need for outpatient follow up, an ENT specialist, to return to the emergency department if symptoms worsen or persist or if there are any questions or concerns that arise at home. Response to treatment: the patient's symptoms have markedly improved after treatment, and as a result, I will discharge patient. ED course: Will add valium to regimen as it seemed to markedly improve symptoms. Will have patient f/u with ENT to further investigate Meniere's disease or other vertigo causes of peripheral origin. CT head was negative. Patient on physical exam not showing signs of central vertigo. Discussed all of this with family and patient in which both are good with plan . 01/21 13:41 Order name: CT Head Brain wo Cont; Complete Time: 14:05 jr8 01/21 13:41 Order name: IV; Complete Time: 14:39 jr8 Administered Medications: 14:39 Drug: NS 0.9% 1000 ml Route: IV; Rate: 1000 ml; Site: left upper arm; jd3 14:39 Drug: Valium (diazepam) 2 mg Route: IVP; Site: left upper arm; jd3 14:39 Drug: Meclizine 50 mg Route: PO; jd3 Disposition: 01/22 09:52 Co-signature as Attending Physician, Olaf Hurd MD I agree with the assessment and kdr plan of care. Disposition: 01/21/21 16:52 Discharged to Home. Impression: Other peripheral vertigo. - Condition is Stable. - Discharge Instructions: Vertigo. - Prescriptions for Meclizine 25 mg Oral Tablet - take 1 tablet by ORAL route every 8 hours As needed; 30 tablet. Valium 2 mg Oral Tablet - take 1 tablet by ORAL route every 8 hours As needed; 20 tablet. - Medication Reconciliation Form, Thank You Letter, Antibiotic Education, Prescription Opioid Use form. - Follow up: Gely Patel MD; When: 2 - 3 days; Reason: Recheck today's complaints, Continuance of care, Re-evaluation by your physician. - Problem is new. - Symptoms have improved. Signatures: Dispatcher [employer] EDMS Olaf Hurd MD MD kdr Roszak, Josh, PA PA jr8 Virginia Leung RN RN Adair Cross RN RN jNirmala Mantilla RN RN ll1 Corrections: (The following items were deleted from the chart) 01/21 19:27 16:52 01/21/2021 16:52 Discharged to Home. Impression: Other peripheral vertigo. ea Condition is Stable. Forms are Medication Reconciliation Form, Thank You Letter, Antibiotic Education, Prescription Opioid Use. Follow up: Gely Patel; When: 2 - 3 days; Reason: Recheck today's complaints, Continuance of care, Re-evaluation by your physician. Problem is new. Symptoms have improved. jr8
--- NOTE | 2021-01-21 16:52 | ER ---
Nurse's Notes [facility] Name: Chelsie Scales Age: 40 yrs Sex: Female : 1980 Arrival Date: 01/21/2021 Time: 12:45 Bed 17 Private MD: Diagnosis: Other peripheral vertigo Presentation: 01/21 12:59 Chief complaint: Patient states: Vertigo, N/V, dizzy for 4 days. No fever. Coronavirus ll1 screen: Client denies travel out of the [place] in the last 14 days. fatigue, headache, nausea, vomiting. Client presents with at least one sign or symptom that may indicate coronavirus-19. Standard/surgical mask placed on the client. Ebola Screen: Patient denies travel to an Ebola-affected area in the 21 days before illness onset. Initial Sepsis Screen: Does the patient meet any 2 criteria? No. Patient's initial sepsis screen is negative. Does the patient have a suspected source of infection? No. Patient's initial sepsis screen is negative. Risk Assessment: Do you want to hurt yourself or someone else? Patient reports no desire to harm self or others. Onset of symptoms was January 18, 2021. 12:59 Method Of Arrival: Wheelchair ll1 12:59 Acuity: KRUPA 3 ll1 Historical: - Allergies: 13:02 No Known Allergies; ll1 - PMHx: 13:02 Vertigo; ll1 - PSHx: 13:02 ; ll1 - Immunization history:: Client reports receiving the 2nd dose of the Covid vaccine, Flu vaccine is up to date. - Social history:: Smoking status: Patient denies any tobacco usage or history of. Screenin:13 Abuse screen: Denies threats or abuse. Nutritional screening: No deficits noted. jd3 Tuberculosis screening: No symptoms or risk factors identified. Fall Risk Ambulatory Aid- None/Bed Rest/Nurse Assist (0 pts). Gait- Normal/Bed Rest/Wheelchair (0 pts) Mental Status- Oriented to own ability (0 pts). Total Mcbride Fall Scale indicates No Risk (0-24 pts). Assessment: 14:12 General: Appears in no apparent distress. comfortable, Behavior is calm, cooperative, jd3 appropriate for age. Pain: Denies pain. Neuro: Level of Consciousness is awake, alert, obeys commands, Oriented to person, place, time, situation, Reports dizziness. Cardiovascular: Denies chest pain, Capillary refill < 3 seconds Patient's skin is warm and dry. Respiratory: Airway is patent Respiratory effort is even, unlabored, Respiratory pattern is regular, symmetrical, Denies cough, shortness of breath. GI: No signs and/or symptoms were reported involving the gastrointestinal system. : No signs and/or symptoms were reported regarding the genitourinary system. EENT: No signs and/or symptoms were reported regarding the EENT system. Derm: Skin is intact, Skin is dry, Skin is normal, Skin temperature is warm. Musculoskeletal: Circulation, motion, and sensation intact. Range of motion: intact in all extremities. 14:40 Reassessment: No changes from previously documented assessment. Patient and/or family jd3 updated on plan of care and expected duration. Pain level reassessed. Patient is alert, oriented x 3, equal unlabored respirations, skin warm/dry/pink. 15:42 Reassessment: Patient appears in no apparent distress at this time. No changes from jd3 previously documented assessment. Patient and/or family updated on plan of care and expected duration. Pain level reassessed. Patient is alert, oriented x 3, equal unlabored respirations, skin warm/dry/pink. 17:11 Reassessment: Patient appears in no apparent distress at this time. Patient and/or jd3 family updated on plan of care and expected duration. Pain level reassessed. Patient is alert, oriented x 3, equal unlabored respirations, skin warm/dry/pink. Patient states feeling better. 19:05 Reassessment: Patient and/or family updated on plan of care and expected duration. Pain ad5 level reassessed. Patient is alert, oriented x 3, equal unlabored respirations, skin warm/dry/pink. Patient states symptoms have improved. Vital Signs: 12:59 BP 132 / 79; Pulse 78; Resp 17; Temp 99.0; Pulse Ox 100% ; Weight 80.74 kg; Height 5 ll1 ft. 5 in. (165.10 cm); Pain 0/10; 14:40 BP 141 / 71; Pulse 75; Resp 17 S; Pulse Ox 98% on R/A; jd3 15:42 BP 129 / 68; Pulse 67; Resp 16 S; Pulse Ox 97% on R/A; jd3 17:11 BP 127 / 71; Pulse 70; Resp 17 S; Pulse Ox 100% on R/A; jd3 19:10 BP 130 / 70; Pulse 72; Resp 15 S; Pulse Ox 98% on R/A; ad5 12:59 Body Mass Index 29.62 (80.74 kg, 165.10 cm) ll1 ED Course: 12:45 Patient arrived in ED. as 13:02 Triage completed. ll1 13:02 Arm band placed on Patient placed in an exam room, on a stretcher. ll1 13:04 Noe Gimenez PA is PHCP. jr8 13:04 Olaf Hurd MD is Attending Physician. jr8 13:53 CT Head Brain wo Cont In Process Unspecified. EDMS 13:53 Adair Delarosa, JIMY is Primary Nurse. jd3 14:12 Missed attempt(s): 22 gauge in right wrist. Bleeding controlled, band aid applied, jd3 catheter tip intact. Missed attempt(s): 22 gauge in right forearm. Bleeding controlled, band aid applied, catheter tip intact. 14:14 Patient has correct armband on for positive identification. Bed in low position. Call jd3 light in reach. Side rails up X2. Adult w/ patient. Pulse ox on. NIBP on. 14:20 Inserted saline lock: 22 gauge in left upper arm, using aseptic technique. ll1 16:51 Gely Patel MD is Referral Physician. jr8 19:33 No provider procedures requiring assistance completed. IV discontinued, intact, ad5 bleeding controlled, No redness/swelling at site. Pressure dressing applied. Administered Medications: 14:39 Drug: NS 0.9% 1000 ml Route: IV; Rate: 1000 ml; Site: left upper arm; jd3 14:39 Drug: Valium (diazepam) 2 mg Route: IVP; Site: left upper arm; jd3 14:39 Drug: Meclizine 50 mg Route: PO; jd3 Outcome: 16:52 Discharge ordered by . jr8 19:27 Patient left the ED. ea 19:33 Discharged to home ambulatory, with family. ad5 19:33 Condition: stable 19:33 Discharge instructions given to patient, family, Instructed on discharge instructions, follow up and referral plans. medication usage, Demonstrated understanding of instructions, follow-up care, medications, Prescriptions given X 2. Signatures: Dispatcher [employer] Yocasta Mondragon Josh, PA PA jr8 Virginia Leung RN Adair Sin ea, RN RN jd3 Nirmala Sneed RN RN ll1 Robert Ferris
[2021-01-21 19:34] VITALS: TEMP 99
[2021-01-21 19:38] VITALS: BP 127/71; O2SAT 100
== END 2021-01-21 19:27 | disposition home or self-care (01) ==
LOC: ER 12:42
DX: H81.399 Other peripheral vertigo, unspecified ear (principal)
CPT/HCPCS: 70450; 96374; 99284; J3360; J7030

== ENCOUNTER 2022-08-14 22:22 | Emergency (ER) | payer SELFPAY ==
--- OUTSIDE RECORDS SUMMARY | 2022-08-14 22:25 | XMS REPORT | Continuity of Care Document ---
:1980 Author Organization [facility] t Address [address] [place] [address] Care Team Providers Name Role Phone Room, [facility] Therapy Tub Attending Clinician Unavailable Alex Gore MD Attending Clinician Michael Augustine MD Attending Clinician Ravi Solis MD Attending Clinician MICHAEL AUGUSTINE Attending Clinician Unavailable Corona Child MD Attending Clinician CORONA CHILD Attending Clinician Unavailable ALEX GORE Attending Clinician Unavailable NASIR LYNN Admitting Clinician Unavailable Problems Condition Condition Condition Status Onset Resolution Last Treating Co mments Source Name Details Category Date Date Treatment Clinician Date Need for Need for Disease Active Unive rs Tdap Tdap 04-20 ity of [place] Medical Branch Overweight Overweight Disease Active Overview : Univers 8- ICD10 ity of 00:00: Diagnosis [place] 00 Term Medical Change Advisor Branch Utility Encounter Encounter Disease Active Overview: Univers for for 04-20 ICD10 ity of routine routine 00:00: Diagnosis [place] gynecologi gynecologi 00 Term Me dical billy billy Change Advisor Branch examinatio examinatio Utility n n Fatigue Fatigue Disease Active Univers 8-25 ity of 00:00: [place] 00 Medical Branch General General Disease Active Overview: Univ ers counseling counseling 4 ICD10 it y of and advice and advice 00:00: Diagnosis [place] for for 00 Term Medical contracept contracept Change Advisor Branch gala gala Utility management management Allergies, Adverse Reactions, Alerts Allergy Allergy Status Severity Reaction(s) Onset Inactive Treating Comm ents Source Name Type Date Date Clinician NO KNOWN Drug Active Univers ALLERGIE Class ity of S [facility] [place] [facility] Social History Social Habit Start Date Stop Date Quantity Comments [facility] [place] [facility] Exposure to Not sure [facility] SARS-CoV-2 [facility] [place] [facility] (event) Branch Tobacco use and 2020-07-08 2020-07-08 Never used [facility] y of exposure 00:00:00 00:00:00 [facility] [place] [facility] Alcohol intake 2020-07-08 2020-07-08 Current [facility] 00:00:00 00:00:00 non-drinker of [facility] alcohol [place] (finding) Smoking Status Start Date Stop Date Source Never smoker [facility] Medications Ordered Filled Start Stop Current Ordering Indication Dosage Frequency Signature Comments Components Source Medication Medication Date Date Medication? Clinician (SIG) Name Name gabapentin 2019-08 Yes [id number] 300mg Take 1 Univers 300 mg 1-12 capsule by ity of capsule 00:00: mouth 3 [place] 00 (three) Medical times [place] daily. gabapentin 2019-08 Yes [id number] 300mg Take 1 Univers 300 mg 1-12 capsule by ity of capsule 00:00: mouth 3 [place] 00 (three) Medical times [place] daily. FENTanyl 2019-08 2020- No 400ug 400 mcg, Uni vers (ACTIQ) 08-29 Buccal, ity of lollipop 20:00: 19:00 ONCE, 1 [place] 400 mcg 00 :00 dose, Tue Medical 06/29/20 at Branch 1400, Routine sulfamethox 2019-08 2020- No [id number] 1{tbl} Take 1 Univers azole-trime 08-29 tablet by it y of thoprim 00:00: 05:59 mouth 2 [place] (BACTRIM 00 :00 (two) Medical DS) 800-160 times Branch mg per daily for tablet 7 days. sulfamethox 2019-08 2020- No [id number] 1{tbl} Take 1 Univers azole-trime 08-29 tablet by it y of thoprim 00:00: 05:59 mouth 2 [place] (BACTRIM 00 :00 (two) Medical DS) 800-160 times Branch mg per daily for tablet 7 days. sulfamethox 2019-08- No [id number] 1{tbl} Take 1 Univers azole-trime 1-03 07-07 tablet by it y of thoprim 00:00: 05:59 mouth 2 [place] (BACTRIM 00 :00 (two) Medical DS) 800-160 times Branch mg per daily for tablet 7 days. HYDROcodone 2019-08- No [id number] 1{tbl} Take 1 U nivers -acetaminop 0-30 07-03 tablet by it y of hen (NORCO) 00:00: 05:59 [place] 5-325 mg 00 :00 every 6 Medical tablet (six) Branch hours as needed for Pain (scale 4-6) for up to 7 days. Indication s: acute pain HYDROcodone 2019-08- No [id number] 1{tbl} Take 1 U nivers -acetaminop 0-30 07-03 tablet by it y of hen (NORCO) 00:00: 05:59 [place] 5-325 mg 00 :00 every 6 Medical tablet (six) Branch hours as needed for Pain (scale 4-6) for up to 7 days. Indication s: acute pain meclizine 2017-08 Yes 25mg Take 1 Univer s 25 mg 1-03 tablet by ity of tablet 00:00: mouth [place] 00 every 6 Medical (six) Branch hours as needed for Dizziness. ondansetron 2017-08 Yes 8mg Take 1 Univ ers (ZOFRAN) 8 1-03 tablet by ity of mg tablet 00:00: mouth [place] 00 every 8 Medical (eight) Branch hours as needed for Nausea and Vomiting (N/V). meclizine 2017-08 Yes 25mg Take 1 Univer s 25 mg 1-03 tablet by ity of tablet 00:00: mouth [place] 00 every 6 Medical (six) Branch hours as needed for Dizziness. ondansetron 2017-08 Yes 8mg Take 1 Univ ers (ZOFRAN) 8 1-03 tablet by ity of mg tablet 00:00: mouth [place] 00 every 8 Medical (eight) Branch hours as needed for Nausea and Vomiting (N/V). meclizine 2017-08 Yes 25mg Take 1 Univer s 25 mg 1-03 tablet by ity of tablet 00:00: mouth [place] 00 every 6 Medical (six) Branch hours as needed for Dizziness. ondansetron 2017-08 Yes 8mg Take 1 Univ ers (ZOFRAN) 8 1-03 tablet by ity of mg tablet 00:00: mouth [place] 00 every 8 Medical (eight) Branch hours as needed for Nausea and Vomiting (N/V). meclizine 2017-08 Yes 25mg Take 1 Univer s 25 mg 1-03 tablet by ity of tablet 00:00: mouth [place] 00 every 6 Medical (six) Branch hours as needed for Dizziness. ondansetron 2017-08 Yes 8mg Take 1 Univ ers (ZOFRAN) 8 1-03 tablet by ity of mg tablet 00:00: mouth [place] 00 every 8 Medical (eight) Branch hours as needed for Nausea and Vomiting (N/V). meclizine 2017-08 Yes 25mg Take 1 Univer s 25 mg 1-03 tablet by ity of tablet 00:00: mouth [place] 00 every 6 Medical (six) Branch hours as needed for Dizziness. ondansetron 2017-08 Yes 8mg Take 1 Univ ers (ZOFRAN) 8 1-03 tablet by ity of mg tablet 00:00: mouth [place] 00 every 8 Medical (eight) Branch hours as needed for Nausea and Vomiting (N/V). Immunizations Ordered Filled Immunization Date Status Comments [facility] e Immunization Name Name [facility] 2015-04-20 Completed University of 00:00:00 [facility] 2015-04-20 Completed University of 00:00:00 [facility] 2015-04-20 Completed University of 00:00:00 [facility] 2015-04-20 Completed University of 00:00:00 [facility] 2015-04-20 Completed University of 00:00:00 [facility] 2002-11-13 Completed University of 00:00: [facility] 2002-11-13 Completed University of 00:00:00 [facility] 2002-11-13 Completed University of 00:00:00 [facility] 2002-11-13 Completed University of 00:00:00 [facility] 2002-11-13 Completed University of 00:00:00 [facility] [place] [facility] Vital Signs Vital Name Observation Time Observation Value Comments Source Systolic blood 2020-07-08 18:22:00 128 mm[Hg] Univer sity of pressure [place] [facility] Diastolic blood 2020-07-08 18:22:00 84 mm[Hg] Unive rsity of pressure [place] [facility] Heart rate 2020-07-08 18:22:00 70 /min Universi ty of [place] [facility] Body temperature 2020-07-08 18:22:00 37.28 Dora Univ ersity of [place] [facility] Respiratory rate 2020-07-08 18:22:00 16 /min Univ ersity of [place] [facility] Body weight 2020-07-08 18:22:00 79.47 kg Universi ty of [place] [facility] BMI 2020-07-08 18:22:00 30.07 kg/m2 Universi ty of [place] [facility] Oxygen saturation in 2020-07-08 18:22:00 99 /min University of Arterial blood by [facility] Pulse oximetry Branch Systolic blood 2020-07-08 18:22:00 128 mm[Hg] Univer sity of pressure [place] [facility] Diastolic blood 2020-07-08 18:22:00 84 mm[Hg] Unive rsity of pressure [place] [facility] Heart rate 2020-07-08 18:22:00 70 /min Universi ty of [place] [facility] Body temperature 2020-07-08 18:22:00 37.28 Dora Univ ersity of [place] [facility] Respiratory rate 2020-07-08 18:22:00 16 /min Univ ersity of [place] [facility] Body weight 2020-07-08 18:22:00 79.47 kg Universi ty of [place] [facility] BMI 2020-07-08 18:22:00 30.07 kg/m2 Universi ty of [place] [facility] Oxygen saturation in 2020-07-08 18:22:00 99 /min University of Arterial blood by [facility] billy Pulse oximetry Branch Systolic blood 2020-07-04 15:06:00 136 mm[Hg] Univer sity of pressure [place] [facility] Diastolic blood 2020-07-04 15:06:00 73 mm[Hg] Unive rsity of pressure [place] [facility] Heart rate 2020-07-04 15:06:00 78 /min Universi ty of [place] [facility] Body temperature 2020-07-04 15:06:00 36.33 Dora Univ ersity of [place] [facility] Respiratory rate 2020-07-04 15:06:00 16 /min Univ ersity of [facility] [place] [facility] Branch Systolic blood 2020-07-04 15:06:00 136 mm[Hg] Univer sity of pressure [place] [facility] Diastolic blood 2020-07-04 15:06:00 73 mm[Hg] Unive rsity of pressure [place] [facility] Heart rate 2020-07-04 15:06:00 78 /min Universi ty of [facility] [place] [facility] Branch Body temperature 2020-07-04 15:06:00 36.33 Dora Univ ersity of [facility] [place] [facility] Branch Respiratory rate 2020-07-04 15:06:00 16 /min Univ ersity of [place] [facility] Systolic blood 2020-06-29 18:48:00 194 mm[Hg] Univer sity of pressure [facility] [place] [facility] Branch Diastolic blood 2020-06-29 18:48:00 97 mm[Hg] Unive rsity of pressure [facility] [place] [facility] Branch Heart rate 2020-06-29 18:48:00 73 /min Universi ty of [facility] [place] [facility] Body temperature 2020-06-29 18:48:00 36.94 Dora Univ ersity of [place] [facility] Respiratory rate 2020-06-29 18:48:00 16 /min Univ ersity of [place] [facility] Body weight 2020-06-29 18:48:00 79.153 kg Universi ty of [facility] [place] [facility] Branch BMI 2020-06-29 18:48:00 29.95 kg/m2 Universi ty of [place] [facility] Systolic blood 2020-06-29 18:48:00 194 mm[Hg] Univer sity of pressure [place] [facility] Diastolic blood 2020-06-29 18:48:00 97 mm[Hg] Unive rsity of pressure [facility] [place] [facility] Branch Heart rate 2020-06-29 18:48:00 73 /min Universi ty of [place] [facility] Body temperature 2020-06-29 18:48:00 36.94 Dora Univ ersity of [place] [facility] Respiratory rate 2020-06-29 18:48:00 16 /min Univ ersity of [place] [facility] Body weight 2020-06-29 18:48:00 79.153 kg Universi ty of [place] [facility] BMI 2020-06-29 18:48:00 29.95 kg/m2 Universi ty of [facility] [place] [facility] Branch Procedures Procedure Date / Time Performing Clinician Source Performed CONSENT TO PHOTOGRAPH 2020-06-29 06:01:00 Doctor Unassigned, No [facility] Name [facility] Branch REFERRAL OCCUPATIONAL 2020-06-29 00:00:[address] [facility] Encounters Start End Encounter Admission Attending Care Care Encounter Source Date/Time Date/Time Type Type Clinicians Facility Department ID 2020-07-09 2020-07-09 Ancillary Room, Esthela [id number] 09:42:24 10:42:24 Visit Dolly-Occup Pros[place] [id number] Therapy Tub [facility] [id number] 2020-07-09 2020-07-09 Ancillary Room, Dolly-Occup Therapy Tub Delia fernandez [id number] [facility] 09:42:24 10:42:24 Visit Alex Gore [id number] ity of [facility] 4.2.7.2.686 Timothy as [id number] [address] 2020-07-08 2020-07-08 [facility] Esthela Augustine [id number] 12:13:08 23:59:00 Encounter Michael Cheng [id number] [place] [id number] [facility] 2020-07-08 2020-07-08 [facility] Michael Augustine 1.2.840 [id number] [facility] 12:13:08 23:59:00 Encounter Ravi Solis 350.1 .13.10 ity [facility] 4.2.7.2.686 Timothy as [id number] [address] 2020-07-08 2020-07-08 Outpatient Hortencia AUGUSTNIE [facility] [id number] [facility] 12:30:00 12:30:00 MICHAEL wells [facility] 2020-07-04 2020-07-04 [facility] Esthela Augustine [id number] 09:06:00 23:59:00 Encounter Michael Cheng [id number] [facility] [id number] 2020-07-04 2020-07-04 [facility] Esthela Augustine [id number] Univers 09:06:00 23:59:00 Encounter Michael Cheng [id number] ity of [facility] 4.2.7.2.686 Timothy as [id number] [address] 2020-07-04 2020-07-04 Outpatient R DAVIDE [facility] [id number] Univers 09:00:00 09:00:00 GILMAJEANNIE ity [facility] 2020-06-30 2020-06-30 Ancillary Room, Esthela [id number] 08:06:31 09:06:31 Visit Dolly-Occup [place] 350.1.13.10 Therapy Tub [facility] [id number] [facility] 2020-06-30 2020-06-30 Ancillary Room, Dolly-Occup Therapy Tub Delia ie [id number] [facility] 08:06:31 09:06:31 Visit Alex Gore [id number] ity [facility] 4.2.7.2.686 Timothy as [id number] [address] 2020-06-29 2020-06-29 [facility] Corona Child [id number] Univers 12:30:00 23:59:00 Encounter Lisandrohectorren Mikaelaserene Bonds [place] 350.1.13.1 0 ity [facility] 4.2.7.2.686 Timothy as [id number] [address] 2020-06-29 2020-06-29 [facility] Corona Child [id number] 12:30:00 23:59:00 Encounter Prosper 350.1.13.10 [facility] [id number] [facility] 2020-06-29 2020-06-29 Outpatient O CORONA CHILD [facility] [id number] Univers 12:30:00 12:30:00 ity [facility] 2020-06-29 2020-06-29 Outpatient Hortencia GORE [facility] [id number] Univers 08:00:00 08:00:00 ALEX ity [facility] 2020-06-25 2020-06-25 Outpatient U CORONA CHILD [facility] [id number] Univers 00:00:00 23:59:00 it of [place] [facility] Results Test Description Test Time Test Comments Results Result [facility] e Comments REFERRAL 2020-06-29 Consult [facility] 00:00:00 [facility] THERAPY chart reviewed Branch via [employer] ?Please refer to progress notes for details. Miguel Del [phone] pgr.
[2022-08-14] MEDS ORDERED: MORPHINE 4 MG/ML SYR ONE (23:03)
[2022-08-14] MEDS ORDERED: ONDANSETRON 4 MG/2 ML VIAL ONE (23:04)
[2022-08-14] MEDS ORDERED: NA CHLORIDE 0.9% 1,000 ML ONE (23:04)
[2022-08-14 23:20] LABS: Urine Blood Trace-intact (Negative); Urine Glucose Negative (Negative); Urine Protein Negative (Negative); Urine Specific Gravity <=1.005 (1.005-1.030); Urine pH 5.5 (5.0-7.0)
[2022-08-14 23:32] LABS: Absolute Lymphocytes (CBC) 2.3 K/uL (0.7-4.9); Hematocrit 34.9 % (36.0-45.0); Lymphocytes % 24.4 % (15.3-44.8); MCV 86.8 fL (80-100); MPV 9.4 fL (7.6-11.3); RBC Red Blood Cell Count 4.02 M/uL (3.86-4.86)
[2022-08-14 23:42] LABS: Albumin 3.1 g/dL (3.4-5.0); Bilirubin Total 0.2 mg/dL (0.2-1.0); Potassium 3.9 mmol/L (3.5-5.1)
[2022-08-14 23:53] LABS: Urine Bacteria <20 /HPF (<20); Urine RBC None Seen /HPF (None Seen)
[2022-08-15] MEDS ORDERED: KETOROLAC 30 MG/ML INJ ONE (02:39)
--- NOTE | 2022-08-15 03:00 | EDPHYS ---
Physician Documentation [facility] Name: Chelsie Scales Age: 42 yrs Sex: Female : 1980 Arrival Date: 08/14/2022 Time: 22:26 Bed 18 Private MD: ED Physician Yao Welch HPI: 08/14 23:00 This 42 yrs old Female presents to ER via Ambulatory with complaints of cp Abdominal Pain. 23:00 The patient presents with abdominal pain right lower quadrant. Onset: The cp symptoms/episode began/occurred 2 week(s) ago. 23:00 The symptoms radiate to right back. cp 23:00 Associated signs and symptoms: Pertinent positives: constipation, Pertinent negatives: cp blood in stools, chest pain, diarrhea, dysuria, fever, vaginal discharge, vomiting. Severity of pain: in the emergency department the pain is unchanged despite home interventions. ARCHITECTURAL INTERN: 22:37 LMP 07/29/2022 kl Historical: - Allergies: 22:39 No Known Allergies; kl - Home Meds: 22:36 meclizine Oral [Active]; kl - PMHx: 22:36 Vertigo; kl - PSHx: 22:36 section; kl - Immunization history:: Adult Immunizations not up to date. - Social history:: Smoking status: Patient denies any tobacco usage or history of. ROS: 23:05 Eyes: Negative for injury, pain, redness, and discharge. cp 23:05 Constitutional: Negative for body aches, chills, fever, poor PO intake. 23:05 Cardiovascular: Negative for chest pain, palpitations. cp 23:05 Respiratory: Negative for cough, shortness of breath, wheezing. cp 23:05 Abdomen/GI: Positive for abdominal pain, Negative for vomiting, diarrhea, constipation, anorexia, black/tarry stool, rectal bleeding. 23:05 Back: Positive for radiated pain. 23:05 : Negative for pelvic pain, vaginal bleeding, vaginal discharge. 23:05 Skin: Negative for cellulitis, rash. 23:05 Neuro: Negative for altered mental status, headache, numbness, weakness. 23:05 All other systems are negative. Exam: 23:10 Constitutional: The patient appears in no acute distress, alert, awake, non-toxic, well cp developed, well nourished. 23:10 Head/Face: Normocephalic, atraumatic. cp 23:10 Eyes: Periorbital structures: appear normal, Conjunctiva: normal, no exudate, no injection, Sclera: no appreciated abnormality, Lids and lashes: appear normal, bilaterally. 23:10 ENT: External ear(s): are unremarkable, Nose: is normal, Mouth: Lips: moist, Oral mucosa: pink and intact, moist, Posterior pharynx: Airway: no evidence of obstruction, patent. 23:10 Chest/axilla: Inspection: normal. 23:10 Cardiovascular: Rate: normal, Rhythm: regular. 23:10 Respiratory: the patient does not display signs of respiratory distress, Respirations: normal, no use of accessory muscles, no retractions, labored breathing, is not present, Breath sounds: are clear throughout, no decreased breath sounds, no stridor. 23:10 Abdomen/GI: Inspection: abdomen appears normal, Bowel sounds: active, all quadrants, Palpation: soft, in all quadrants, moderate abdominal tenderness, in the right lower quadrant, rebound tenderness, is not appreciated, voluntary guarding, is elicited in the right lower quadrant. 23:10 Back: CVA tenderness, is absent. Vital Signs: 22:34 BP 149 / 84; Pulse 77; Resp 16; Temp 98.5(O); Pulse Ox 99% on R/A; Weight 82.55 kg (R); kl Height 5 ft. 2 in. (157.48 cm); Pain 9/10; 23:21 BP 147 / 79; Pulse 67; Resp 19; Pulse Ox 99% ; jj7 08/15 00:30 BP 144 / 83; Pulse 63; Resp 16; Pulse Ox 99% ; Pain 0/10; jj7 01:28 BP 140 / 82; Pulse 69; Resp 18; Pulse Ox 98% ; Pain 0/10; jj7 02:30 BP 136 / 84; Pulse 71; Resp 17; Pulse Ox 98% ; Pain 6/10; jj7 03:21 BP 129 / 66; Pulse 67; Resp 17; Pulse Ox 96% ; jj7 08/14 22:34 Body Mass Index 33.29 (82.55 kg, 157.48 cm) kl MDM: 08/14 22:29 Patient medically screened. cp 23:00 Differential diagnosis: appendicitis, non-specific abd pain, Pyelonephritis, cp Ureterolithiasis, urinary tract infection, ovarian cyst, ovarian abscess. 08/15 02:59 Data reviewed: vital signs, nurses notes. 02:59 Counseling: I had a detailed discussion with the patient and/or guardian regarding: the cp historical points, exam findings, and any diagnostic results supporting the discharge/admit diagnosis, lab results, radiology results, the need for outpatient follow up, a family practitioner, to return to the emergency department if symptoms worsen or persist or if there are any questions or concerns that arise at home. Response to treatment: the patient's symptoms have markedly improved after treatment. Special discussion: Based on the patient's Hx, exam, and Dx evaluation, there is no indication for emergent surgery or inpatient Tx. It is understood by the patient/guardian that if the Sx's persist or worsen they need to return immediately for re-evaluation. 08/14 22:50 Order name: CBC with Diff; Complete Time: 00:37 08/15 00:37 Interpretation: Normal except: HGB 11.6; HCT 34.9. 08/14 22:50 Order name: CMP; Complete Time: 00:37 08/15 00:37 Interpretation: Normal except: CL 108; GFR 79; CA 8.2; ALB 3.1; GLOB 3.9; A/G 0.8. 08/14 22:50 Order name: Lipase; Complete Time: 00:37 08/14 22:50 Order name: Urine Microscopic Only; Complete Time: 00:37 08/15 02:03 Interpretation: Reviewed. 08/14 23:20 Order name: Urine Dipstick-Ancillary; Complete Time: 23:32 EDMS 08/14 23:32 Interpretation: Normal except: UBLD Trace-intact. 08/14 22:50 Order name: CT Abd/Pelvis - IV Contrast Only 08/14 22:50 Order name: IV Saline Lock; Complete Time: 23:17 08/14 22:50 Order name: Labs collected and sent; Complete Time: 23:17 08/15 02:12 Order name: Test, Serum; Complete Time: 02:59 08/15 02:59 Interpretation: Reviewed. 08/14 22:50 Order name: Urine Dipstick-Ancillary (obtain specimen); Complete Time: 23:21 08/14 22:50 Order name: Urine Test (obtain specimen); Complete Time: 23:21 cp Administered Medications: 08/14 23:13 Drug: NS 0.9% 1000 ml Route: IV; Rate: 1 bolus; Site: right antecubital; [facility] 08/15 01:07 Follow up: IV Status: Completed infusion [facility] 08/14 23:13 Drug: Zofran (Ondansetron) 4 mg Route: IVP; Site: right antecubital; [facility] 08/15 03:29 Follow up: Response: No adverse reaction [facility] 08/14 23:15 Drug: morphine 4 mg Route: IVP; Infused Over: 4 mins; Site: right antecubital; [facility] 23:20 Follow up: Response: Pain is decreased [facility] 08/15 02:40 Drug: Ketorolac 15 mg Route: IVP; Site: right forearm; j7 03:28 Follow up: Response: Pain is decreased [facility] Disposition: 04:28 Co-signature as Attending Physician, Yao Welch MD. rn Disposition Summary: 08/15/22 02:59 Discharge Ordered Location: Home cp Problem: new cp Symptoms: have improved cp Condition: Stable cp Diagnosis - Lower abdominal pain, unspecified cp Followup: cp - With: Private Physician - When: 2 - 3 days - Reason: Recheck today's complaints Discharge Instructions: - Discharge Summary Sheet cp - Abdominal Pain, Adult cp - Constipation, Adult cp Forms: - Medication Reconciliation Form cp - Thank You Letter cp - Antibiotic Education cp - Prescription Opioid Use cp Prescriptions: - Diclofenac Sodium 75 mg Oral tablet,delayed release (DR/EC) - take 1 tablet by ORAL route 2 times per day; 20 tablet; Refills: 0, Product cp Selection Permitted Signatures: Dispatcher [employer] Jenny Gautam RN RN kl Nieto, Roman, MD MD rn Page, Corey, PA PA cp Johnson, Juwairiyah, RN RN jj7 Corrections: (The following items were deleted from the chart) 00:37 00:37 Normal except: CL 108; GFR 79. cp cp 00:37 00:37 Normal except: CL 108; GFR 79; CA 8.2. cp cp 02:10 08/14 23:24 URINE --ANCILLARY+UC.LAB.BRZ ordered. EDMS EDMS
--- NOTE | 2022-08-15 03:00 | ER ---
Nurse's Notes [facility] Name: Chelsie Scales Age: 42 yrs Sex: Female : 1980 Arrival Date: 08/14/2022 Time: 22:26 Bed 18 Private MD: Diagnosis: Lower abdominal pain, unspecified Presentation: 08/14 22:34 Chief complaint: Patient's son or daughter states: right side abdominal pain x 2 weeks kl seen by PCP reports told to come to ER if pain continues also reports constipation not relieved by OTC laxative. Coronavirus screen: Vaccine status: Patient reports receiving the 1st dose of the Covid vaccine. Ebola Screen: Patient negative for fever greater than or equal to 101.5 degrees Fahrenheit, and additional compatible Ebola Virus Disease symptoms. Initial Sepsis Screen: Does the patient meet any 2 criteria? No. Patient's initial sepsis screen is negative. Does the patient have a suspected source of infection? No. Patient's initial sepsis screen is negative. Risk Assessment: Do you want to hurt yourself or someone else? Patient reports no desire to harm self or others. 22:34 Method Of Arrival: Ambulatory kl 22:34 Acuity: KRUPA 3 kl 08/15 03:26 Onset of symptoms is unknown. jj7 Triage Assessment: 08/14 22:37 General: Appears uncomfortable, well groomed, well developed, Behavior is cooperative. kl Pain: Complains of pain in right upper quadrant and right lower quadrant Pain currently is 9 out of 10 on a pain scale. Aggravated by sitting. GI: Abdomen is tender to palpation in right upper quadrant and right lower quadrant Reports bloating, constipation. 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 - Social history:: Smoking status: Patient denies any tobacco usage or history of. Screenin:00 [facility] ED Fall Risk Assessment (Adult) History of falling in the last 3 months, jj7 including since admission No falls in past 3 months (0 pts) Confusion or Disorientation No (0 pts) Intoxicated or Sedated No (0 pts) Impaired Gait No (0 pts) Mobility Assist Device Used No (0 pt) Altered Elimination No (0 pt) Score/Fall Risk Level 0 - 2 = Low Risk. Abuse screen: Denies threats or abuse. Nutritional screening: No deficits noted. Tuberculosis screening: No symptoms or risk factors identified. Fall Risk No fall in past 12 months (0 pts). Assessment: 23:00 General: Appears in no apparent distress. uncomfortable, Behavior is calm, cooperative, jj7 appropriate for age. GI: Abd is soft X 4 quads Abdomen is tender to palpation in right upper quadrant and right lower quadrant Reports lower abdominal pain, upper abdominal pain, constipation. Vital Signs: 22:34 BP 149 / 84; Pulse 77; Resp 16; Temp 98.5(O); Pulse Ox 99% on R/A; Weight 82.55 kg (R); kl Height 5 ft. 2 in. (157.48 cm); Pain 9/10; 23:21 BP 147 / 79; Pulse 67; Resp 19; Pulse Ox 99% ; jj7 08/15 00:30 BP 144 / 83; Pulse 63; Resp 16; Pulse Ox 99% ; Pain 0/10; jj7 01:28 BP 140 / 82; Pulse 69; Resp 18; Pulse Ox 98% ; Pain 0/10; jj7 02:30 BP 136 / 84; Pulse 71; Resp 17; Pulse Ox 98% ; Pain 6/10; jj7 03:21 BP 129 / 66; Pulse 67; Resp 17; Pulse Ox 96% ; jj7 08/14 22:34 Body Mass Index 33.29 (82.55 kg, 157.48 cm) ED Course: 08/14 22:26 Patient arrived in ED. bp1 22:26 Micah Hughes PA is PHCP. cp 22:26 Yao Welch MD is Attending Physician. cp 22:36 Triage completed. kl 22:52 Leyla Pisano RN is Primary Nurse. jj7 23:00 No provider procedures requiring assistance completed. jj7 23:00 Patient has correct armband on for positive identification. Placed in gown. Bed in low jj7 position. Call light in reach. Side rails up X 1. Adult w/ patient. 23:00 Arm band placed on left wrist. Patient placed in an exam room, on a stretcher. jj7 23:13 Inserted saline lock: 20 gauge in right antecubital area, using aseptic technique. jj7 forearm, using aseptic technique. Blood collected. 23:17 CBC with Diff Sent. jj7 23:17 CMP Sent. jj7 23:17 Lipase Sent. jj7 08/15 00:06 CT Abd/Pelvis - IV Contrast Only In Process Unspecified. EDMS 02:35 Test, Serum Sent. jj7 03:21 IV discontinued, intact, bleeding controlled, No redness/swelling at site. Pressure jj7 dressing applied. Administered Medications: 08/14 23:13 Drug: NS 0.9% 1000 ml Route: IV; Rate: 1 bolus; Site: right antecubital; jj7 08/15 01:07 Follow up: IV Status: Completed infusion j7 08/14 23:13 Drug: Zofran (Ondansetron) 4 mg Route: IVP; Site: right antecubital; jj7 08/15 03:29 Follow up: Response: No adverse reaction jj7 08/14 23:15 Drug: morphine 4 mg Route: IVP; Infused Over: 4 mins; Site: right antecubital; jj7 23:20 Follow up: Response: Pain is decreased j7 08/15 02:40 Drug: Ketorolac 15 mg Route: IVP; Site: right forearm; jj7 03:28 Follow up: Response: Pain is decreased j7 Medication: 08/14 23:00 VIS not applicable for this client. jj7 Outcome: 08/15 02:59 Discharge ordered by MD. berg 03:21 Discharged to home ambulatory, with significant other. jj7 03:21 Condition: improved 03:21 Discharge instructions given to patient, family, Instructed on discharge instructions, medication usage, Demonstrated understanding of instructions, medications, Prescriptions given X 1. 03:27 Patient left the ED. jj7 Signatures: Dispatcher [employer] EDMS Jenny Sneed RN RN Micah Covarrubias PA PA cp Paniauga, Brittany bp1 Johnson, Juwairiyah RN RN jj7 Corrections: (The following items were deleted from the chart) 02:41 08/14 23:13 Inserted saline lock: 20 gauge in right antecubital area, using aseptic jj7 technique. Blood collected. jj7
[2022-08-15 03:32] VITALS: TEMP 98.5
[2022-08-15 03:38] VITALS: BP 129/66; O2SAT 96
--- NOTE | 2022-08-15 14:52 | RAD REPORT ---
EXAM DESCRIPTION: CT - Abdomen Pelvis W Contrast - 08/15/2022 6:49 am CLINICAL HISTORY: The patient is 42 years old and is Female; Abd pain TECHNIQUE: Axial computed tomography images of the abdomen and pelvis with intravenous contrast. S agittal and coronal reformatted images were created and reviewed. This CT exam was performed using one or more of the following dose reduction techniques: automated exposure control, adjustment of t he mA and/or kV according to patient size, and/or use of iterative reconstruction technique. DLP: 1705 mGy*cm COMPARISON: CT abdomen and pelvis dated 10/29/2019. FINDINGS: LUNG BASES: Lung bases are clear. HEART: Visualized heart is normal. ABDOMEN: LIVER: Hepatic steatosis. GALLBLADDER AND BILE DUCTS: Unremarkable. No calcified stones. No ductal dilation. PANCREAS: Unremarkable. No mass. No ductal dilation. SPLEEN: Unremarkable. No splenomegaly. ADRENALS: Unremarkable. No mass. KIDNEYS AND URETERS: Mild right hydronephrosis and hydroureter. No obstructive stone. Unchanged nonobstructive stone in the inferior pole of the right kidney. STOMACH AND BOWEL: Unremarkable. No obstruction. No mucosal thickening. PELVIS: APPENDIX: The appendix is seen and is within normal limits. BLADDER: Unremarkable. No mass. REPRODUCTIVE: 2.1 cm left ovarian cyst. Fibroid uterus. ABDOMEN and PELVIS: INTRAPERITONEAL SPACE: Unremarkable. No free air. No significant fluid collection. BONES/JOINTS: No acute fracture. No dislocation. SOFT TISSUES: Unremarkable. VASCULATURE: Unremarkable. No abdominal aortic aneurysm. LYMPH NODES: Unremarkable. No enlarged lymph nodes. IMPRESSION: 1. Mild right hydronephrosis and hydroureter. No obstructive stone. Correlate with u rinalysis. 2. Unchanged nonobstructive stone in the inferior pole of the right kidney. 3. 2.1 cm left ovarian cyst. No follow-up imaging is recommended. Reference: JACR 2019;17(2):248-254 4. Hepatic steatosis. 5. Fibroid uterus. Electronically signed by: Joao Edge DO 08/15/2022 12:26 AM CLINICAL DOCUMENTATION MANAGER Due to temporary technical issues with the PACS/Fluency reporting system, reports are being signed by the in house radiologists without review as a courtesy to insure prompt reporting. The interpreting radiologist is fully responsible for the content of the report.
== END 2022-08-15 03:27 | disposition home or self-care (01) ==
LOC: ER 22:22
DX: R10.31 Right lower quadrant pain (principal)
CPT/HCPCS: 36415; 74177; 80053; 81003; 81015; 83690; 84703; 85025; 99284; J2405; J7030; Q9967

== ENCOUNTER 2022-10-03 21:01 | Emergency (ER) | payer SELFPAY ==
--- OUTSIDE RECORDS SUMMARY | 2022-10-03 21:05 | XMS REPORT | Continuity of Care Document ---
:1980 Author Organization [facility] t Address 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 Encounter Encounter Disease Active Overview: Univers for for 04-20 ICD10 ity of routine routine 00:00: Diagnosis [place] gynecologi gynecologi 00 Term Me dical billy billy Manufacturing Mechanic Branch examinatio examinatio Utility n n Fatigue Fatigue Disease Active Univers 8-25 ity of 00:00: [place] 00 Medical Branch General General Disease Active Overview: Univ ers counseling counseling 12-22 ICD10 it y of and advice and advice 00:00: Diagnosis [place] for for 00 Term Medical contracept 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 SARS-CoV-2 [facility] (event) [place] Tobacco use and 2020-07-08 2020-07-08 Never used [facility] y of exposure 00:00:00 00:00:00 [facility] Alcohol intake 2020-07-08 2020-07-[address] [facility] 00:00:00 00:00:00 non-drinker of [facility] alcohol [place] (finding) Smoking Status Start Date Stop Date Source Never smoker [facility] Medications Ordered Filled Start Stop Current Ordering Indication Dosage Frequency Signature Comments Components Source Medication Medication Date Date Medication? Clinician (SIG) Name Name gabapentin 2019-08 Yes [id number] 300mg Take 1 Univers 300 mg 1-12 capsule by ity of capsule 00:00: mouth 3 [place] 00 (three) Medical times [place] daily. gabapentin 2019-08 Yes [id number] 300mg Take 1 Univers 300 mg 1-12 capsule by ity of capsule 00:00: mouth 3 [place] 00 (three) Medical times [place] daily. FENTanyl 2019-08 2020- No 400ug 400 mcg, Uni vers (ACTIQ) 08-29 Buccal, ity of lollipop 20:00: 19:00 ONCE, 1 [place] 400 mcg 00 :00 dose, Tue Medical 06/29/20 at Branch 1400, Routine sulfamethox 2019-08 2020- No [id number] 1{tbl} Take 1 Univers azole-trime 08-29 tablet by it y of thoprim 00:00: 05:59 mouth 2 [place] (BACTRIM 00 :00 (two) Medical DS) 800-160 times Branch mg per daily for tablet 7 days. sulfamethox 2019-08 2020- No [id number] 1{tbl} Take 1 Univers azole-trime -11 04-11 tablet by it y of thoprim 00:00: 05:59 mouth 2 [place] (BACTRIM 00 :00 (two) Medical DS) 800-160 times Branch mg per daily for tablet 7 days. sulfamethox 2019-08- No [id number] 1{tbl} Take 1 Univers azole-trime -07-07 tablet by it y of thoprim 00:00: 05:59 mouth 2 [place] (BACTRIM 00 :00 (two) Medical DS) 800-160 times Branch mg per daily for tablet 7 days. HYDROcodone 2019-08- No [id number] 1{tbl} Take 1 U nivers -acetaminop 0-30 11-07 tablet by it y of hen (NORCO) 00:00: 05:59 mouth [place] 5-325 mg 00 :00 every 6 Medical tablet (six) Branch hours as needed for Pain (scale 4-6) for up to 7 days. Indication s: acute pain HYDROcodone 2019-08- No [id number] 1{tbl} Take 1 U nivers -acetaminop 0-30 -07 tablet by it y of hen (NORCO) [...] Immunizations Ordered Filled Immunization Date Status Comments [facility] e Immunization Name Name [facility] 2015-04-20 Completed University of 00:00:00 [facility] 2015-04-20 Completed University of 00:00:00 [facility] 2015-04-20 Completed University of 00:00:00 [facility] 2015-04-20 Completed University of 00:00:00 [facility] 2015-04-20 Completed University of 00:00:00 [facility] 2002-11-13 Completed University of 00:00: [facility] 2002-11-13 Completed University of 00:00:00 [facility] 2002-11-13 Completed University of 00:00:00 [facility] 2002-11-13 Completed University of 00:00:00 [facility] 2002-11-13 Completed University of 00:00:00 [facility] Vital Signs Vital Name Observation Time Observation Value Comments Source Systolic blood 2020-07-08 18:22:00 128 mm[Hg] Univer sity of pressure [place] [facility] Diastolic blood 2020-07-08 18:22:00 84 mm[Hg] Unive rsity of pressure [place] [facility] Heart rate 2020-07-08 18:22:00 70 /min Universi ty of [place] [facility] Body temperature 2020-07-08 18:22:00 37.28 Dora Univ ersity of [place] [facility] Respiratory rate 2020-07-08 18:22:00 16 /min Univ ersity of [place] [facility] Body weight 2020-07-08 18:22:00 79.47 kg Universi ty of [place] [facility] BMI 2020-07-08 18:22:00 30.07 kg/m2 Universi ty of [place] [facility] Oxygen saturation in 2020-07-08 18:22:00 99 /min University of Arterial blood by [facility] Pulse oximetry Branch Systolic blood 2020-07-08 18:22:00 128 mm[Hg] Univer sity of pressure [place] [facility] Diastolic blood 2020-07-08 18:22:00 84 mm[Hg] Unive rsity of pressure [place] [facility] Heart rate 2020-07-08 18:22:00 70 /min Universi ty of [place] [facility] Body temperature 2020-07-08 18:22:00 37.28 Dora Univ ersity of [place] [facility] Respiratory rate 2020-07-08 18:22:00 16 /min Univ ersity of [place] [facility] Body weight 2020-07-08 18:22:00 79.47 kg Universi ty of [place] [facility] BMI 2020-07-08 18:22:00 30.07 kg/m2 Universi ty of [place] [facility] Oxygen saturation in 2020-07-08 18:22:00 99 /min University of Arterial blood by [facility] Pulse oximetry Branch Systolic blood 2020-07-04 15:06:00 136 mm[Hg] Univer sity of pressure [place] [facility] Diastolic blood 2020-07-04 15:06:00 73 mm[Hg] Unive rsity of pressure [place] [facility] Heart rate 2020-07-04 15:06:00 78 /min Universi ty of [place] [facility] Body temperature 2020-07-04 15:06:00 36.33 Dora Univ ersity of [place] [facility] Respiratory rate 2020-07-04 15:06:00 16 /min Univ ersity of [place] [facility] Systolic blood 2020-07-04 15:06:00 136 mm[Hg] Univer sity of pressure [place] [facility] Diastolic blood 2020-07-04 15:06:00 73 mm[Hg] Unive rsity of pressure [place] [facility] Heart rate 2020-07-04 15:06:00 78 /min Universi ty of [place] [facility] Body temperature 2020-07-04 15:06:00 36.33 Dora Univ ersity of [place] [facility] Respiratory rate 2020-07-04 15:06:00 16 /min Univ ersity of [place] [facility] Systolic blood 2020-06-29 18:48:00 194 mm[Hg] Univer sity of pressure [place] [facility] Diastolic blood 2020-06-29 18:48:00 97 mm[Hg] Unive rsity of pressure [place] [facility] Heart rate 2020-06-29 18:48:00 73 /min Universi ty of [place] [facility] Body temperature 2020-06-29 18:48:00 36.94 Dora Univ ersity of [place] [facility] Respiratory rate 2020-06-29 18:48:00 16 /min Univ ersity of [place] [facility] Body weight 2020-06-29 18:48:00 79.153 kg Universi ty of [place] [facility] BMI 2020-06-29 18:48:00 29.95 kg/m2 Universi ty of [place] [facility] Systolic blood 2020-06-29 18:48:00 194 mm[Hg] Univer sity of pressure [place] [facility] Diastolic blood 2020-06-29 18:48:00 97 mm[Hg] Unive rsity of pressure [place] [facility] Heart rate 2020-06-29 18:48:00 73 /min Universi ty of [place] [facility] Body temperature 2020-06-29 18:48:00 36.94 Dora Univ ersity of [place] [facility] Respiratory rate 2020-06-29 18:48:00 16 /min Univ ersity of [place] [facility] Body weight 2020-06-29 18:48:00 79.153 kg Universi ty [facility] [place] [facility] BMI 2020-06-29 18:48:00 29.95 kg/m2 [facility] ty [facility] [place] [facility] Procedures Procedure Date / Time Performing Clinician Source Performed CONSENT TO PHOTOGRAPH 2020-06-29 06:01:00 Doctor Unassigned, No [facility] Name Medical Branch REFERRAL OCCUPATIONAL 2020-06-29 00:00:00 Emelyn Jorgensen [facility] Encounters Start End Encounter Admission Attending Care Care Encounter Source Date/Time Date/Time Type Type Clinicians Facility Department ID 2020-07-09 2020-07-09 Ancillary Room, Esthela [id number] 09:42:24 10:42:24 Visit Dolly-Occup Prosper [id number] Therapy Tub [facility] [id number] 2020-07-09 2020-07-09 Ancillary Room, Odlly-Occup Therapy Tub Delia rebecca [id number] [facility] 09:42:24 10:42:24 Visit Alex Gore [id number] ity [facility] [id number] Timothy as [id number] [address] 2020-07-08 2020-07-08 [facility] Esthela Augustine [id number] 12:13:08 23:59:00 Encounter Michael Cheng [id number] [place] [id number] [facility] 2020-07-08 2020-07-08 [facility] Michael Augustine 1.2.840 [id number] [facility] 12:13:08 23:59:00 [facility] 4.2.7.2.686 Timothy as [id number] [address] 2020-07-08 2020-07-08 Outpatient Hortencia AUGUSTINE [facility] [id number] [facility] 12:30:00 12:30:00 MICHAEL wells [facility] 2020-07-04 2020-07-04 [facility] Esthela Augustine [id number] 09:06:00 23:59:00 Encounter Michael Cheng [id number] [place] [id number] 2020-07-04 2020-07-04 [facility] Esthela Augusitne [id number] Univers 09:06:00 23:59:00 Encounter Michael Cammie Prosper [id number] ity of Hospital [id number] Timothy as [id number] [address] 2020-07-04 2020-07-04 Outpatient R DAVIDE [facility] [id number] Univers 09:00:00 09:00:00 MICHAEL ity [facility] 2020-06-30 2020-06-30 Ancillary Room, Esthela [id number] 08:06:31 09:06:31 Visit Dolly-Occup Prosper [id number] Therapy Tub [facility] [id number] [facility] 2020-06-30 2020-06-30 Ancillary Room, Dolly-Occup Therapy Tub Delia ie [id number] [facility] 08:06:31 09:06:31 Visit Alex Gore [id number] ity [facility] [id number] Timothy as [id number] [address] 2020-06-29 2020-06-29 [facility] Corona Child [id number] Univers 12:30:00 23:59:00 Encounter Michael Augustine 350.1.13.1 0 ity of Hospital 4.2.7.2.686 Timothy as [id number] [address] 2020-06-29 2020-06-29 Hospital [place] Child [id number] 12:30:00 23:59:00 Encounter Prosper [id number] Hospital [id number] [facility] 2020-06-29 2020-06-29 Outpatient O CORONA CHILD [facility] [id number] Univers 12:30:00 12:30:00 ity [facility] 2020-06-29 2020-06-29 Outpatient Hortencia GORE [facility] [id number] Univers 08:00:00 08:00:00 ALEX wells [facility] 2020-06-25 2020-06-25 Outpatient U [place] CHILD [facility] [id number] Univers [facility]:00[facility]00 [facility]59[facility] Results Test Description Test Time Test Comments Results Result [facility] e Comments REFERRAL 2020-06-29 Consult [facility] 00:00:00 received and [facility] THERAPY chart reviewed Branch via [employer]. ?Please refer to progress notes for details. Rosa Johnson, [phone] pgr.
--- NOTE | 2022-10-03 22:07 | RAD REPORT ---
EXAM DESCRIPTION: US - Transvaginal OB - 10/03/2022 9:54 pm CLINICAL HISTORY: ABD PAIN COMPARISON: TRANSVAGINALOB dated 03/05/2014 FINDINGS: Several uterine fibroids are suspected. There is possibly a tiny cystic structure in the fundal endometrium seen. This could be an early gest ational sac. The maternal adnexa and ovaries are within normal limits. Normal Doppler blood flow was demonstrated to both ovaries. IMPRESSION: Small cystic structure in the fundal endometrium could represent very early gestational sac. Recommend serial HCG correlation and follow-up pelvic sonogram 7-10 days.
[2022-10-03 22:44] LABS: Urine Blood Negative (Negative); Urine Glucose Negative (Negative); Urine Protein Negative (Negative); Urine Specific Gravity <=1.005 (1.005-1.030); Urine pH 5.5 (5.0-7.0)
[2022-10-03 23:01] LABS: Absolute Lymphocytes (CBC) 2.2 K/uL (0.7-4.9); Hematocrit 35.9 % (36.0-45.0); Lymphocytes % 21.1 % (15.3-44.8); MCV 86.7 fL (80-100); MPV 9.5 fL (7.6-11.3); RBC Red Blood Cell Count 4.14 M/uL (3.86-4.86)
[2022-10-03 23:22] LABS: Potassium 3.5 mmol/L (3.5-5.1)
--- NOTE | 2022-10-04 00:50 | ER ---
Nurse's Notes [facility] Name: Chelsie Scales Age: 42 yrs Sex: Female : 1980 Arrival Date: 10/03/2022 Time: 21:04 Bed 14 Private MD: Diagnosis: Less than 8 weeks gestation of Presentation: 10/03 21:08 Chief complaint: Patient states: C/o lower abdominal pain X 1 week, states haven't had ll3 a BM in 2 days, reports being 6 weeks , denies vaginal bleeding. Coronavirus screen: Vaccine status: Patient reports receiving the 1st dose of the Covid vaccine. At this time, the client does not indicate any symptoms associated with coronavirus-19. Ebola Screen: No symptoms or risks identified at this time. Initial Sepsis Screen: Does the patient meet any 2 criteria? No. Patient's initial sepsis screen is negative. Does the patient have a suspected source of infection? No. Patient's initial sepsis screen is negative. Risk Assessment: Do you want to hurt yourself or someone else? Patient reports no desire to harm self or others. Onset of symptoms was September 26, 2022. 21:08 Method Of Arrival: Ambulatory ll3 21:08 Acuity: KRUPA 3 ll3 Triage Assessment: 21:11 General: Appears uncomfortable, Behavior is calm, cooperative. Pain: Complains of pain ll3 in abdomen Pain currently is 7 out of 10 on a pain scale. Pain began 1 week. GI: Abdomen is round non-distended, Reports lower abdominal pain, Patient currently denies diarrhea, vomiting. GI: Reports constipation. Derm: Skin is pink, warm \T\ dry. 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 - Social history:: Smoking status: Patient denies any tobacco usage or history of. Screenin:30 [facility] ED Fall Risk Assessment (Adult) History of falling in the last 3 months, pf1 including since admission No falls in past 3 months (0 pts) Confusion or Disorientation No (0 pts) Intoxicated or Sedated No (0 pts) Impaired Gait No (0 pts) Mobility Assist Device Used No (0 pt) Altered Elimination No (0 pt) Score/Fall Risk Level 0 - 2 = Low Risk Oriented to surroundings, Maintained a safe environment, Educated pt \T\ family on fall prevention, incl call for assistance when getting out of bed, Assessed \T\ reinforced patient's understanding of fall precautions, Provided non-skid footwear, Hourly rounding (assess needs \T\ fall precautionary measures) done, Used ambulatory aids as needed (educated on \T\ assisted with), Used gait belt as appropriate. 21:30 Abuse screen: Denies threats or abuse. Nutritional screening: No deficits noted. pf1 Tuberculosis screening: No symptoms or risk factors identified. Assessment: 21:30 General: Appears in no apparent distress. comfortable, well groomed, well developed, pf1 Behavior is calm, cooperative, appropriate for age, quiet. 21:30 Pain: Complains of pain in abdomen Pain currently is 7 out of 10 on a pain scale. Pain pf1 began 2 weeks ago. Neuro: No deficits noted. Level of Consciousness is awake, alert, obeys commands, Oriented to person, place, time, situation. Cardiovascular: No deficits noted. Capillary refill < 3 seconds Patient's skin is warm and dry. Respiratory: Airway is patent Trachea midline Respiratory effort is even, unlabored, Respiratory pattern is regular, symmetrical, Breath sounds are clear bilaterally. GI: Abdomen is round non-distended, Bowel sounds present X 4 quads. Abd is soft X 4 quads Abdomen is tender to palpation in bilateral lower pelvic region. : No deficits noted. No signs and/or symptoms were reported regarding the genitourinary system. EENT: No deficits noted. No signs and/or symptoms were reported regarding the EENT system. Derm: No deficits noted. No signs and/or symptoms reported regarding the dermatologic system. Musculoskeletal: Circulation, motion, and sensation intact. Capillary refill < 3 seconds, Range of motion: intact in all extremities. 21:30 : Reports patient reports being 6 weeks pregant. pf1 22:30 Reassessment: Patient appears in no apparent distress at this time. Patient and/or pf1 family updated on plan of care and expected duration. Pain level reassessed. Patient is alert, oriented x 3, equal unlabored respirations, skin warm/dry/pink. Patient states feeling better. Patient states symptoms have improved. Patient C/O lower abdominal/pelvic region pain of 6 at this time. Patient denies any vaginal bleeding.. 23:30 Reassessment: Patient appears in no apparent distress at this time. Patient and/or pf1 family updated on plan of care and expected duration. Pain level reassessed. Patient is alert, oriented x 3, equal unlabored respirations, skin warm/dry/pink. Patient is alert/active/playful, equal unlabored respirations, skin warm/dry/pink. Patient states feeling better. Patient states symptoms have improved. 10/04 00:30 Reassessment: Patient appears in no apparent distress at this time. No changes from pf1 previously documented assessment. Patient and/or family updated on plan of care and expected duration. Pain level reassessed. Patient is alert, oriented x 3, equal unlabored respirations, skin warm/dry/pink. Patient states feeling better. Patient states symptoms have improved. Vital Signs: 10/03 21:08 BP 139 / 96; Pulse 78; Resp 17; Temp 98.5(O); Pulse Ox 100% on R/A; Weight 81.65 kg ll3 (R); Height 5 ft. 4 in. (162.56 cm) (R); Pain 7/10; 22:00 BP 124 / 72; Pulse 79; Resp 16; Pulse Ox 98% on R/A; Pain 7/10; pf1 23:00 BP 114 / 62; Pulse 76; Resp 18; Pulse Ox 99% on R/A; Pain 7/10; pf1 10/04 00:00 BP 121 / 79; Pulse 81; Resp 16; Pulse Ox 98% on R/A; Pain 6/10; pf1 01:02 BP 116 / 81; Pulse 74; Resp 16; Pulse Ox 100% on R/A; ll3 10/03 21:08 Body Mass Index 30.90 (81.65 kg, 162.56 cm) ll3 ED Course: 10/03 21:04 Patient arrived in ED. ja2 21:04 Kim Thompson FNP-C is [facility]. kb 21:04 Micah Kennedy MD is Attending Physician. kb 21:11 Triage completed. ll3 21:11 Arm band placed on Patient placed in an exam room, on a stretcher, on pulse oximetry. ll3 21:15 Patient has correct armband on for positive identification. Placed in gown. Bed in low pf1 position. Call light in reach. 21:54 US Transvaginal Ob In Process Unspecified. EDMS 21:58 Libra alvarado, RN is Primary Nurse. pf1 22:10 Inserted saline lock: 20 gauge in left antecubital area, using aseptic technique. Blood pf1 collected. 22:17 Abo/rh Typing Sent. pf1 22:17 Basic Metabolic Panel Sent. pf1 22:17 CBC with Diff Sent. pf1 22:17 Quantitative Hcg Sent. pf1 02 01:01 No provider procedures requiring assistance completed. IV discontinued, intact, ll3 bleeding controlled, No redness/swelling at site. Pressure dressing applied. Administered Medications: No medications were administered Medication: 01:02 VIS not applicable for this client. ll3 Outcome: 00:49 Discharge ordered by . kb 01:01 Discharged to home ambulatory, with family. ll3 01:01 Condition: stable 01:01 Discharge instructions given to patient, family, Instructed on discharge instructions, follow up and referral plans. Demonstrated understanding of instructions, follow-up care. 01:02 Patient left the ED. ll3 Signatures: Dispatcher [employer] [facility] Kim Thompson FNP-C FNP-Ida Cobb2 Ezio Reed, RN RN ll3 Libra alvarado, RN RN pf1
--- NOTE | 2022-10-04 00:50 | EDPHYS ---
Physician Documentation [facility] Name: Chelsie Scales Age: 42 yrs Sex: Female : 1980 Arrival Date: 10/03/2022 Time: 21:04 Bed 14 Private MD: ED Physician Micah Kennedy HPI: 10/04 01:25 This 42 yrs old Female presents to ER via Ambulatory with complaints of kb Abdominal Cramping. 01:25 The patient presents to the emergency department with abdominal pain. The estimated kb gestational age is 6 weeks. course: care: at a clinic. Previous pregnancies: in previous pregnancies patient has had. Associated signs and symptoms: Pertinent positives: abdominal pain, Pertinent negatives: vaginal bleeding. The patient has not experienced similar symptoms in the past. The patient has not recently seen a physician. 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 - Social history:: Smoking status: Patient denies any tobacco usage or history of. ROS: 10/04 01:24 Constitutional: Negative for fever, chills, and weight loss. kb Abdomen/GI: Positive for abdominal cramps. All other systems are negative. Exam: 01:24 Constitutional: This is a well developed, well nourished patient who is awake, alert, kb and in no acute distress. Head/Face: Normocephalic, atraumatic. ENT: Moist Mucous membranes Cardiovascular: Regular rate and rhythm with a normal S1 and S2. No gallops, murmurs, or rubs. No pulse deficits. Respiratory: Respirations even and unlabored. No increased work of breathing. Talking in full sentences Skin: Warm, dry with normal turgor. Normal color. MS/ Extremity: Pulses equal, no cyanosis. Neurovascular intact. Full, normal range of motion. Neuro: Awake and alert, GCS 15, oriented to person, place, time, and situation. Moves all extremities. Normal gait. 01:24 Abdomen/GI: Inspection: abdomen appears normal, Bowel sounds: normal, Palpation: soft, in all quadrants, mild abdominal tenderness, in the suprapubic area, right lower quadrant and left lower quadrant. Vital Signs: 10/03 21:08 BP 139 / 96; Pulse 78; Resp 17; Temp 98.5(O); Pulse Ox 100% on R/A; Weight 81.65 kg ll3 (R); Height 5 ft. 4 in. (162.56 cm) (R); Pain 7/10; 22:00 BP 124 / 72; Pulse 79; Resp 16; Pulse Ox 98% on R/A; Pain 7/10; pf1 23:00 BP 114 / 62; Pulse 76; Resp 18; Pulse Ox 99% on R/A; Pain 7/10; pf1 0208 00:00 BP 121 / 79; Pulse 81; Resp 16; Pulse Ox 98% on R/A; Pain 6/10; pf1 01:02 BP 116 / 81; Pulse 74; Resp 16; Pulse Ox 100% on R/A; ll3 10/03 21:08 Body Mass Index 30.90 (81.65 kg, 162.56 cm) ll3 MDM: 10/03 21:04 Patient medically screened. kb 10/04 01:24 Differential diagnosis: ectopic . Data reviewed: vital signs, nurses notes. kb Counseling: I had a detailed discussion with the patient and/or guardian regarding: the historical points, exam findings, and any diagnostic results supporting the discharge/admit diagnosis, lab results, radiology results, the need for outpatient follow up, an OB/Gyne specialist, to return to the emergency department if symptoms worsen or persist or if there are any questions or concerns that arise at home. 10/03 21:10 Order name: Abo/rh Typing; Complete Time: 23:22 kb 10/03 21:10 Order name: Basic Metabolic Panel; Complete Time: 23:22 kb 10/03 21:10 Order name: CBC with Diff; Complete Time: 23:16 kb 10/03 21:10 Order name: Quantitative Hcg; Complete Time: 23:22 kb 10/03 22:44 Order name: Urine Dipstick-Ancillary; Complete Time: 22:47 EDMS 10/03 21:10 Order name: US Transvaginal Ob; Complete Time: 22:10 kb 10/03 21:10 Order name: IV Saline Lock; Complete Time: 22:17 kb 10/03 21:10 Order name: Labs collected and sent; Complete Time: 22:17 kb 10/03 21:10 Order name: NPO; Complete Time: 22:17 kb 10/03 21:10 Order name: Urine Dipstick-Ancillary (obtain specimen); Complete Time: 22:43 kb 10/03 21:10 Order name: Urine Test (obtain specimen); Complete Time: 22:43 kb Administered Medications: No medications were administered Disposition Summary: 10/04/22 00:49 Discharge Ordered Location: Home kb Condition: Stable kb Diagnosis - Less than 8 weeks gestation of kb Followup: kb - With: Emergency Department - When: As needed - Reason: Worsening of condition Followup: kb - With: Private Physician - When: 2 - 3 days - Reason: Recheck today's complaints, Continuance of care, Re-evaluation by your physician Discharge Instructions: - Discharge Summary Sheet kb - Abdominal Pain During kb - First Trimester of , [id number] kb Forms: - Medication Reconciliation Form kb - Thank You Letter kb - Antibiotic Education kb - Prescription Opioid Use kb Signatures: Dispatcher [employer] Kim Davis, PROJECT MANAGER INDUSTRIAL-C PROJECT MANAGER INDUSTRIAL-Ezio Yuan RN RN ll3 Corrections: (The following items were deleted from the chart) 10/03 22:48 22:46 TEST, SERUM+[id number].LAB.BRZ ordered. EDID EDID
[2022-10-04 01:34] VITALS: TEMP 98.5
[2022-10-04 01:51] VITALS: BP 116/81; O2SAT 100
== END 2022-10-04 01:02 | disposition home or self-care (01) ==
LOC: ER 21:01
DX: O26.891 Other specified pregnancy related conditions, first trimester (principal); Z3A.01 Less than 8 weeks gestation of pregnancy
CPT/HCPCS: 36415; 76817; 80048; 81003; 84702; 85025; 86900; 86901

== ENCOUNTER 2022-10-09 12:56 | Emergency (ER) | payer SELFPAY ==
--- OUTSIDE RECORDS SUMMARY | 2022-10-09 12:59 | XMS REPORT | Continuity of Care Document ---
:1980 Author Organization [facility] t Address [address] [place] [address] Care Team Providers Name Role Phone PCP, PATIENT DOES NOT HAVE A Primary Care Physician Unavaila ALEX Floyd Attending Clinician Unavailable DALJIT MAR Attending Clinician Unavailable Room, [facility] Therapy Tub Attending Clinician Unavailable Alex Gore MD Attending Clinician Michael Corae MD Attending Clinician Ravi Solis MD Attending Clinician [phone] MICHAEL COREA Attending Clinician Unavailable Corona Turner MD Attending Clinician CORONA TURNER Attending Clinician Unavailable ALEX GORE Attending Clinician Unavailable NASIR LYNN Admitting Clinician Unavailable Problems Condition Condition Condition Status Onset Resolution Last Treating Co mments Source Name Details Category Date Date Treatment Clinician Date Need for Need for Disease Active Unive rs Tdap Tdap 8-25 ity of [place] Branch Overweight Overweight Disease Active Overview : Univers 8-25 ICD10 ity of 00:00: Diagnosis [place] 00 Term Medical Dynamicist Branch Utility Encounter Encounter Disease Active Overview: Univers for for 8-25 ICD10 ity of routine routine 00:00: Diagnosis [place] gynecologi gynecologi 00 Term Me dical billy billy Dynamicist Branch examinatio examinatio Utility n n Fatigue Fatigue Disease Active Univers 8-25 ity of 00:00: [place] 00 Medical Wingate General General Disease Active Overview: Univ ers counseling counseling 12-22 ICD10 it y of and advice and advice 00:00: Diagnosis [place] for for 00 Term Medical contracept contracept Dynamicist Wingate gala gala Utility management management Allergies, Adverse Reactions, Alerts Allergy Allergy Status Severity Reaction(s) Onset Inactive Treating Comm ents Source Name Type Date Date Clinician NO KNOWN Drug Active Univers ALLERGIE Class ity of S [facility] Social History Social Habit Start Date Stop Date Quantity Comments [facility] Exposure to Not sure [facility] SARS-CoV-2 [facility] (event) Branch Tobacco use and 2020-07-08 2020-07-08 Never used [facility] y of exposure 00:00:00 00:00:00 [facility] Alcohol intake 2020-07-08 2020-07-08 Current [facility] 00:00:00 00:00:00 non-drinker of [facility] alcohol Wingate (finding) Smoking Status Start Date Stop Date Source Never smoker [facility] acute hospital Medications Ordered Filled Start Stop Current Ordering Indication Dosage Frequency Signature Comments Components Source Medication Medication Date Date Medication? Clinician (SIG) Name Name gabapentin 2019-08 Yes [id number] 300mg Take 1 Univers 300 mg 1-12 capsule by ity of capsule 00:00: mouth 3 [place] 00 (three) Medical times Wingate daily. gabapentin 2019-08 Yes [id number] 300mg Take 1 Univers 300 mg 1-12 capsule by ity of capsule 00:00: mouth 3 [place] 00 (three) Medical times Wingate daily. FENTanyl 2019-08 2020- No 400ug 400 mcg, Uni vers (ACTIQ) 08-29 Buccal, ity of lollipop 20:00: 19:00 ONCE, 1 [place] 400 mcg 00 :00 dose, Tue Medical 06/29/20 at Branch 1400, Routine sulfamethox 2019-08 2020- No [id number] 1{tbl} Take 1 Univers azole-trime 08-29 tablet by it y of thoprim 00:00: 05:59 mouth 2 [place] (BACTRIM 00 :00 (two) Medical DS) 800-160 times Branch mg per daily for tablet 7 days. sulfamethox 2019-08 2020- No [id number] 1{tbl} Take 1 Univers azole-trime -11 04-11 tablet by it y of thoprim 00:00: 05:59 mouth 2 [place] (BACTRIM 00 :00 (two) Medical DS) 800-160 times Branch mg per daily for tablet 7 days. sulfamethox 2019-08- No [id number] 1{tbl} Take 1 Univers azole-trime -11 04-11 [...] Immunizations Ordered Filled Immunization Date Status Comments [facility] e Immunization Name Name [facility] 2015-04-20 Completed University of 00:00:00 [facility] 2015-04-20 Completed University of 00:00:00 [facility] 2015-04-20 Completed University of 00:00:00 [facility] 2015-04-20 Completed University of 00:00:00 [facility] 2015-04-20 Completed University of 00:00:00 [facility] 2002-11-13 Completed University of 00:00:00 [facility] 2002-11-13 Completed University of 00:00:00 [facility] 2002-11-13 Completed University of 00:00:00 [facility] 2002-11-13 Completed University of 00:00:00 [facility] 2002-11-13 Completed University of 00:00:00 [place] [facility] Vital Signs Vital Name Observation Time Observation Value Comments Source Systolic blood 2020-07-08 18:22:00 128 mm[Hg] Univer sity of pressure [place] [facility] Diastolic blood 2020-07-08 18:22:00 84 mm[Hg] Unive rsity of pressure [place] [facility] Heart rate 2020-07-08 18:22:00 70 /min Universi ty of [place] [facility] Body temperature 2020-07-08 18:22:00 37.28 Dora Univ ersity of [place] [facility] Respiratory rate 2020-07-08 18:22:00 16 /min Univ ersity of [place] [facility] Body weight 2020-07-08 18:22:00 79.47 kg Universi ty of [place] [facility] BMI 2020-07-08 18:22:00 30.07 kg/m2 Universi ty of [place] [facility] Oxygen saturation in 2020-07-08 18:22:00 99 /min University of Arterial blood by [place] [employer] billy Pulse oximetry Branch Systolic blood 2020-07-08 18:22:00 128 mm[Hg] Univer sity of pressure [place] [facility] Diastolic blood 2020-07-08 18:22:00 84 mm[Hg] Unive rsity of pressure [place] [facility] Heart rate 2020-07-08 18:22:00 70 /min Universi ty of [place] [facility] Body temperature 2020-07-08 18:22:00 37.28 Dora Univ ersity of [place] [facility] Respiratory rate 2020-07-08 18:22:00 16 /min Univ ersity of [place] [facility] Body weight 2020-07-08 18:22:00 79.47 kg Universi ty of [place] [facility] BMI 2020-07-08 18:22:00 30.07 kg/m2 Universi ty of [place] [facility] Oxygen saturation in 2020-07-08 18:22:00 99 /min University of Arterial blood by [place] [employer] billy Pulse oximetry Branch Systolic blood 2020-07-04 15:06:00 136 mm[Hg] Univer sity of pressure [place] [facility] Diastolic blood 2020-07-04 15:06:00 73 mm[Hg] Unive rsity of pressure [place] [facility] Heart rate 2020-07-04 15:06:00 78 /min Universi ty of [place] [facility] Body temperature 2020-07-04 15:06:00 36.33 Dora Univ ersity of [place] [facility] Respiratory rate 2020-07-04 15:06:00 16 /min Univ ersity of [place] [facility] Systolic blood 2020-07-04 15:06:00 136 mm[Hg] Univer sity of pressure [place] [facility] Diastolic blood 2020-07-04 15:06:00 73 mm[Hg] Unive rsity of pressure [place] [facility] Heart rate 2020-07-04 15:06:00 78 /min Universi ty of [place] [facility] Body temperature 2020-07-04 15:06:00 36.33 Dora Univ ersity of [place] [facility] Respiratory rate 2020-07-04 15:06:00 16 /min Univ ersity of [place] [facility] Systolic blood 2020-06-29 18:48:00 194 mm[Hg] Univer sity of pressure [place] [facility] Diastolic blood 2020-06-29 18:48:00 97 mm[Hg] Unive rsity of pressure [place] [facility] Heart rate 2020-06-29 18:48:00 73 /min Universi ty of [place] [facility] Body temperature 2020-06-29 18:48:00 36.94 Dora Univ ersity of [place] [facility] Respiratory rate 2020-06-29 18:48:00 16 /min Univ ersity of [place] [facility] Body weight 2020-06-29 18:48:00 79.153 kg Universi ty of [place] [facility] BMI 2020-06-29 18:48:00 29.95 kg/m2 Universi ty of [place] [facility] Systolic blood 2020-06-29 18:48:00 194 mm[Hg] Univer sity of pressure [place] [facility] Diastolic blood 2020-06-29 18:48:00 97 mm[Hg] Unive rsity of pressure [place] [facility] Heart rate 2020-06-29 18:48:00 73 /min Universi ty of [place] [facility] Body temperature 2020-06-29 18:48:00 36.94 Dora Univ ersity of [place] [facility] Respiratory rate 2020-06-29 18:48:00 16 /min Univ ersity of [place] [facility] Body weight 2020-06-29 18:48:00 79.153 kg Universi ty of [place] [facility] BMI 2020-06-29 18:48:00 29.95 kg/m2 Universi ty of [place] [facility] Procedures Procedure Date / Time Performing Clinician Source Performed CONSENT TO PHOTOGRAPH 2020-06-29 06:01:00 Doctor Unassigned, No [facility] Name Medical Branch REFERRAL OCCUPATIONAL 2020-06-29 00:00:00 Emelyn Jorgensen [facility] Encounters Start End Encounter Admission Attending Care Care Encounter Source Date/Time Date/Time Type Type Clinicians Facility Department ID 2020-07-09 2020-07-09 Ancillary Room, Esthela [id number] 09:42:24 10:42:24 Visit Dolly-Occup Prosper [id number] Therapy Tub [facility] [id number] 2020-07-09 2020-07-09 Ancillary Room, Dolly-Occup Therapy Tub Delia rebecca [id number] [facility] 09:42:24 10:42:24 Visit Alex Gore [id number] ity [facility] 4.2.7.2.686 Timothy as [id number] [address] 2020-07-08 2020-07-08 [facility] Esthela Corea [id number] 12:13:08 23:59:00 Encounter Michael Cheng [id number] [facility] [id number] 2020-07-08 2020-07-08 [facility] 1.2.840 [id number] [facility] 12:13:08 23:59:00 [facility] 4.2.7.2.686 Timothy as [id number] [address] 2020-07-08 2020-07-08 Outpatient Hortencia [facility]A [facility] [id number] Univers 12:30:00 12:30:00 MICHAEL wells [facility] 2020-07-04 2020-07-04 [facility] Myren Esthela [id number] 09:06:00 23:59:00 Encounter Michael Cheng [id number] [facility] [id number] 2020-07-04 2020-07-04 Hospital Esthela Corea [id number] Univers 09:06:00 23:59:00 Encounter Michael Bonds Prosper [id number] ity [facility] 4.2.7.2.686 Timothy as [id number] [address] 2020-07-04 2020-07-04 Outpatient Hortencia [facility] [id number] [facility] 09:00:00 09:00:00 MICHAEL ity [facility] 2020-06-30 2020-06-30 Ancillary Room, Esthela [id number] 08:06:31 09:06:31 Visit Dolly-Occup Prosper [id number] Therapy Tub [facility] [id number] 2020-06-30 2020-06-30 Ancillary Room, Dolly-Occup Therapy Tub Delia ie [id number] [facility] 08:06:31 09:06:31 Visit Alex Goer [id number] ity [facility] 4.2.7.2.686 Timothy as [id number] [address] 2020-06-29 2020-06-29 [facility] Corona Turner [id number] 12:30:00 23:59:00 Encounter [place] [id number] [facility] 4.2.7.2.686 [id number] [facility] 2020-06-29 2020-06-29 [facility] Corona Turner [id number] Univers 12:30:00 23:59:00 Encounter Nahomy Michael Cammie Prosper 350.1.13.1 0 ity [facility] 4.2.7.2.686 Timothy as [id number] [address] 2020-06-29 2020-06-29 Outpatient O CORONA TURNER [facility] [id number] Univers 12:30:00 12:30:00 ity [facility] 2020-06-29 2020-06-29 Outpatient Hortencia GORE [facility] [id number] Univers 08:00:00 08:00:00 ALEX wells [facility] 2020-06-25 2020-06-25 [id number] Univers 00:00:00 23:59:00 [facility] [place] Results Test Description Test Time Test Comments Results Result [facility] e Comments REFERRAL 2020-06-29 Consult University of OCCUPATIONAL 00:00:00 received and [facility] THERAPY chart reviewed Branch via [employer]. ?Please refer to progress notes for details. Rosa Johnson, [place].[phone] pgr.
--- NOTE | 2022-10-09 14:23 | RAD REPORT ---
EXAM DESCRIPTION: US - 1St Trimest Single 1St Fetus - 10/09/2022 2:00 pm CLINICAL HISTORY: ABD CRAMPING, COMPARISON: Transvaginal OB dated 10/03/2022 TECHNIQUE: Sonographic grayscale and color flow images of a first-trimester were obtained through approach. FINDINGS: Suspected single intrauterine is identified, within a bulky uterus with lobulate d contour, suggesting underlying fibroids. Suspected Gestational sac measured approximately 4.5 millimeters, previously measured approximately 4 millimeters, corresponding to gestational age of 5 weeks, 1 day. Surrounding decidual reaction. No f etal pole is identified. No yolk sac is visualized. Right maternal ovary is visualized and is unremarkable. No free fluid. IMPRESSION: 1. Re- demonstration of a small suspected gestational sac, without a pole. No sign ificant interval change since the 10/03/2022 obstetrical ultrasound. Clinical correlation and Correla tion with serial beta HCG levels are recommended, to exclude an anembryonic . 2. Calculated gestational age: 5 weeks, 1 days based on the gestational sac size. Estimated due date by ultrasound: 05/05/2023.
[2022-10-09 14:34] LABS: Urine Blood 2+ (Negative); Urine Glucose Negative (Negative); Urine Protein Negative (Negative); Urine pH 5.5 (5.0-7.0)
[2022-10-09 14:47] LABS: Absolute Lymphocytes (CBC) 1.5 K/uL (0.7-4.9); Hematocrit 38.5 % (36.0-45.0); Lymphocytes % 17.9 % (15.3-44.8); MCV 87.2 fL (80-100); MPV 9.6 fL (7.6-11.3); RBC Red Blood Cell Count 4.41 M/uL (3.86-4.86)
[2022-10-09 14:54] LABS: Urine Bacteria <20 /HPF (<20); Urine Crystals Unidentified Few /HPF (None Seen); Urine Mucus Slight /HPF (None Seen); Urine RBC 21-50 /HPF (None Seen)
[2022-10-09 15:23] LABS: Potassium 3.7 mmol/L (3.5-5.1)
--- NOTE | 2022-10-09 16:24 | EDPHYS ---
Physician Documentation [facility] Name: Chelsie Scales Age: 42 yrs Sex: Female : 1980 Arrival Date: 10/09/2022 Time: 12:58 Bed 16 Private MD: ED Physician Yao Welch HPI: 10/09 14:28 This 42 yrs old Female presents to ER via Ambulatory with complaints of rn Abdominal Cramping - 7wks preg. 14:28 The patient presents to the emergency department with abdominal pain, of the suprapubic rn area and right lower quadrant, that started 5 day(s) ago, described as crampy, vaginal bleeding. The estimated gestational age is 5 weeks. course: care: none, Leakage of Fluid: none appreciated, Ultrasound: the patient had an ultrasound. Associated signs and symptoms: Pertinent positives: abdominal pain, vaginal bleeding, Pertinent negatives: chest pain, diarrhea, dysuria, fever, frequency, seizure, shortness of breath, vaginal discharge. The patient has experienced a previous episode. The patient has been recently seen at the [facility] Emergency Department. Pt reports lower abd cramping, began 5 days ago, seen here then, had u/s that showed IUP. Still cramping but came in today because now started spotting, no clots. NO leakage of fluid. Pt is . No urinary symptoms.. 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 - Social history:: Smoking status: Patient denies any tobacco usage or history of. - Family history:: not pertinent. - Hospitalizations: : No recent hospitalization is reported. ROS: 14:28 Constitutional: Negative for fever, chills, and weight loss, Eyes: Negative for injury, rn pain, redness, and discharge, Cardiovascular: Negative for chest pain, palpitations, and edema, Respiratory: Negative for shortness of breath, cough, wheezing, and pleuritic chest pain, Abdomen/GI: + lower abd cramping Back: Negative for injury and pain, : + vaginal bleeding MS/Extremity: Negative for injury and deformity, Skin: Negative for injury, rash, and discoloration, Neuro: Negative for headache, weakness, numbness, tingling, and seizure. Exam: 14:28 Constitutional: This is a well developed, well nourished patient who is awake, alert, rn and in no acute distress. Cardiovascular: Regular rate and rhythm. No pulse deficits. Respiratory: No increased work of breathing, no retractions or nasal flaring. Abdomen/GI: Soft, mild lower abd tenderness, no rebound, no masses Skin: Warm, dry MS/ Extremity: Pulses equal, no cyanosis. Neuro: Awake and alert, GCS 15 Vital Signs: 13:08 BP 147 / 59; Pulse 74; Resp 18; Temp 98.0; Pulse Ox 99% ; Weight 81.65 kg; Height 5 ft. jh5 1 in. (154.94 cm); Pain 3/10; 14:15 BP 134 / 69; Pulse 70; Resp 16; Pulse Ox 99% on R/A; vg1 15:15 BP 131 / 65; Pulse 70; Resp 14; Pulse Ox 98% on R/A; vg1 15:30 BP 123 / 70; Pulse 70; Resp 14; Pulse Ox 100% on R/A; vg1 16:30 BP 112 / 86; Pulse 75; Resp 14; Pulse Ox 100% on R/A; vg1 13:08 Body Mass Index 34.01 (81.65 kg, 154.94 cm) jh5 MDM: 13:01 Patient medically screened. rn 16:22 Differential diagnosis: threatened Ab, inevitable Ab, complete Ab, missed Ab. Data rn reviewed: vital signs, nurses notes, old medical records, lab test result(s), radiologic studies, ultrasound, and as a result, I will discharge patient. Counseling: I had a detailed discussion with the patient and/or guardian regarding: the historical points, exam findings, and any diagnostic results supporting the discharge/admit diagnosis, lab results, radiology results, the need for outpatient follow up, to return to the emergency department if symptoms worsen or persist or if there are any questions or concerns that arise at home. Special discussion: I discussed with the patient/guardian in detail that at this point there is no indication for admission to the hospital. It is understood, however, that if the symptoms persist or worsen the patient needs to return immediately for re-evaluation. Based on the history and exam findings, there is no indication for further emergent testing or inpatient evaluation. I discussed with the patient/guardian the need to see the OB Gyne specialist for further evaluation of the symptoms. ED course: Increase in HCG but not has not doubled and has been 5 days. No change in u/s, something visualized in uterus but either too early or abnormal . NO ectopic. Urine micro neg. Will dc home with instructions to return 48 hours from now for repeat HCG. . 10/09 13:15 Order name: Abo/rh Typing rn 10/09 13:15 Order name: Basic Metabolic Panel rn 10/09 13:15 Order name: CBC with Diff rn 10/09 13:15 Order name: Quantitative Hcg rn 10/09 13:16 Order name: Urine Microscopic Only rn 10/09 14:34 Order name: Urine Dipstick-Ancillary; Complete Time: 15:00 EDMS 10/09 13:15 Order name: US Transvaginal Ob rn 10/09 14:39 Order name: Urine --Ancillary (enter results) bd 10/09 14:54 Order name: Urine Microscopic Only; Complete Time: 15:00 EDMS 10/09 15:00 Order name: CBC with Automated Diff; Complete Time: 15:19 EDMS 10/09 15:13 Order name: ABO/RH typing; Complete Time: 15:19 EDMS 10/09 15:24 Order name: Basic Metabolic Panel; Complete Time: 16:00 EDMS 10/09 15:24 Order name: HCG, Quantitative; Complete Time: 16:00 EDMS 10/09 16:53 Order name: Urine --Ancillary EDAR 10/09 13:15 Order name: IV Saline Lock; Complete Time: 14:25 rn 10/09 13:15 Order name: Labs collected and sent; Complete Time: 14:47 rn 10/09 13:15 Order name: NPO; Complete Time: 13:18 rn 10/09 13:15 Order name: Urine Dipstick-Ancillary (obtain specimen); Complete Time: 14:47 rn 10/09 14:23 Order name: US; Complete Time: 14:27 EDMS Administered Medications: No medications were administered Disposition Summary: 10/09/22 16:24 Discharge Ordered Location: Home rn Problem: new rn Symptoms: are unchanged rn Condition: Stable rn Diagnosis - Threatened rn Followup: rn - With: Emergency Department - When: 48 Hours - Reason: Repeat Beta-HCG (48 Hours) Discharge Instructions: - Discharge Summary Sheet rn - Threatened Miscarriage rn - Vaginal Bleeding During , First Trimester rn Forms: - Medication Reconciliation Form rn - Thank You Letter rn - Work release form iw - 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
--- NOTE | 2022-10-09 16:24 | ER ---
Nurse's Notes [facility] Name: Chelsie Scales Age: 42 yrs Sex: Female : 1980 Arrival Date: 10/09/2022 Time: 12:58 Bed 16 Private MD: Diagnosis: Threatened Presentation: 10/09 13:08 Chief complaint: Patient states: was here a few days ago; back today because she had jh5 blood when she peed. With lower right quadrant abdominal pain. Coronavirus screen: Vaccine status: Patient reports receiving the 2nd dose of the covid vaccine. Client denies travel out of the [place] in the last 14 days. Ebola Screen: Patient negative for fever greater than or equal to 101.5 degrees Fahrenheit, and additional compatible Ebola Virus Disease symptoms Patient denies exposure to infectious person. Patient denies travel to an Ebola-affected area in the 21 days before illness onset. Initial Sepsis Screen: Does the patient meet any 2 criteria? No. Patient's initial sepsis screen is negative. Does the patient have a suspected source of infection? No. Patient's initial sepsis screen is negative. Risk Assessment: Do you want to hurt yourself or someone else? Patient reports no desire to harm self or others. Onset of symptoms was October 09, 2022. 13:08 Method Of Arrival: Ambulatory [facility] 13:08 Acuity: KRUPA 3 5 Triage Assessment: 13:13 General: Appears in no apparent distress. well groomed, well developed, Behavior is 5 calm, cooperative, appropriate for age. Pain: Complains of pain in abdomen. GI: Reports lower abdominal pain. 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 - Social history:: Smoking status: Patient denies any tobacco usage or history of. - Family history:: not pertinent. - Hospitalizations: : No recent hospitalization is reported. Screenin:35 [facility] ED Fall Risk Assessment (Adult) History of falling in the last 3 months, vg1 including since admission No falls in past 3 months (0 pts) Confusion or Disorientation No (0 pts) Intoxicated or Sedated No (0 pts) Impaired Gait No (0 pts) Mobility Assist Device Used No (0 pt) Altered Elimination No (0 pt) Score/Fall Risk Level 0 - 2 = Low Risk Oriented to surroundings, Maintained a safe environment, Educated pt \T\ family on fall prevention, incl call for assistance when getting out of bed, Assessed \T\ reinforced patient's understanding of fall precautions. Abuse screen: Denies threats or abuse. Denies injuries from another. Nutritional screening: No deficits noted. Tuberculosis screening: No symptoms or risk factors identified. Assessment: 13:35 General: Appears in no apparent distress. comfortable, Behavior is calm, cooperative. vg1 Pain: Complains of pain in suprapubic area and right lower quadrant Pain radiates to suprapubic area Pain currently is 6 out of 10 on a pain scale. Pain began this morning. Neuro: Level of Consciousness is awake, alert, obeys commands, Oriented to person, place, time, situation. Cardiovascular: Patient's skin is warm and dry. Respiratory: Airway is patent Respiratory effort is even, unlabored. GI: Abdomen is round non-distended, Bowel sounds present X 4 quads. Abd is soft and non tender X 4 quads. Patient currently denies nausea, vomiting. : Reports pink coloration on toilet paper after wiping. EENT: No signs and/or symptoms were reported regarding the EENT system. Derm: Skin is pink, warm \T\ dry. Musculoskeletal: Circulation, motion, and sensation intact. 13:40 Reassessment: PT TRANSPORTED TO US VIA WHEELCHAIR. vg1 14:00 Reassessment: PT TRANSPORTED BACK FROM US. vg1 14:29 Reassessment: Patient appears in no apparent distress at this time. No changes from vg1 previously documented assessment. Patient and/or family updated on plan of care and expected duration. Pain level reassessed. Patient is alert, oriented x 3, equal unlabored respirations, skin warm/dry/pink. 16:54 Reassessment: Patient appears in no apparent distress at this time. Patient and/or iw family updated on plan of care and expected duration. Pain level reassessed. Patient is alert, oriented x 3, equal unlabored respirations, skin warm/dry/pink. Patient states feeling better. Vital Signs: 13:08 BP 147 / 59; Pulse 74; Resp 18; Temp 98.0; Pulse Ox 99% ; Weight 81.65 kg; Height 5 ft. jh5 1 in. (154.94 cm); Pain 3/10; 14:15 BP 134 / 69; Pulse 70; Resp 16; Pulse Ox 99% on R/A; vg1 15:15 BP 131 / 65; Pulse 70; Resp 14; Pulse Ox 98% on R/A; vg1 15:30 BP 123 / 70; Pulse 70; Resp 14; Pulse Ox 100% on R/A; vg1 16:30 BP 112 / 86; Pulse 75; Resp 14; Pulse Ox 100% on R/A; vg1 13:08 Body Mass Index 34.01 (81.65 kg, 154.94 cm) 5 ED Course: 12:58 Patient arrived in ED. am2 13:01 Yao Welch MD is Attending Physician. rn 13:13 Triage completed. 5 13:13 Arm band placed on right wrist. 5 13:35 Patient has correct armband on for positive identification. Bed in low position. Call vg1 light in reach. Side rails up X 1. 13:40 Su Choi, RN is Primary Nurse. vg1 14:10 Missed attempt(s): 22 gauge in right antecubital area. sg5 14:14 Inserted saline lock: 22 gauge in right forearm, using aseptic technique. Blood sg5 collected. 16:54 No provider procedures requiring assistance completed. IV discontinued, intact, iw bleeding controlled, No redness/swelling at site. Pressure dressing applied. Administered Medications: No medications were administered Medication: 13:35 VIS not applicable for this client. vg1 Outcome: 16:24 Discharge ordered by . rn 16:54 Discharged to home ambulatory, with family. iw 16:54 Condition: good 16:54 Discharge instructions given to patient, family, Instructed on discharge instructions, follow up and referral plans. Demonstrated understanding of instructions, follow-up care. 16:55 Patient left the ED. iw Signatures: Treasure Shah RN RN iw Yao Welch MD MD rn Moreno, Amanda am2 Su Choi RN RN vg1 Ida Simeon RN RN jh5 Gely Jaffe RN RN sg5 Corrections: (The following items were deleted from the chart) 14:27 14:27 Inserted saline lock: 22 gauge in right forearm, using aseptic technique. Blood sg5 collected. sg5
[2022-10-09 17:31] VITALS: TEMP 98
[2022-10-09 17:43] VITALS: BP 123/70; O2SAT 100
== END 2022-10-09 16:55 | disposition home or self-care (01) ==
LOC: ER 12:56
DX: O20.0 Threatened abortion (principal)
CPT/HCPCS: 36415; 76801; 80048; 81003; 81015; 81025; 84702; 85025; 86900; 86901; 99283

== ENCOUNTER 2022-10-11 17:12 | Emergency (ER) | payer SELFPAY ==
--- OUTSIDE RECORDS SUMMARY | 2022-10-11 17:21 | XMS REPORT | Continuity of Care Document ---
:1980 Author Organization [facility] t Address [address] [place] [address] Care Team Providers Name Role Phone PCP, PATIENT DOES NOT HAVE A Primary Care Physician UnavailALEX Manriquez Attending Clinician Unavailable DALJIT MAR Attending Clinician Unavailable Misti Patel Attending Clinician [phone] Room, [facility] Attending Clinician Unavailable Alex Gore MD Attending Clinician Michael Corea MD Attending Clinician Ravi Solis MD Attending Clinician [phone] MICHAEL COREA Attending Clinician Unavailable Corona Turner MD Attending Clinician CORONA TURNER Attending Clinician Unavailable ALEX GORE Attending Clinician Unavailable NASIR LYNN Admitting Clinician Unavailable Payers Payer Name Policy Type Policy Number Effective Date Expiration Date S ource Problems Condition Condition Condition Status Onset Resolution Last Treating Co mments Source Name Details Category Date Date Treatment Clinician Date Need for Need for Disease Active Unive rs Tdap Tdap 8 ity of [place] Medical Branch Overweight Overweight Disease Active Overview : Univers 8- Formattin ity of 00:00: g of this [place] 00 note Medical might be Branch different from the original. ICD10 Diagnosis Term School Director Utility Encounter Encounter Disease Active Overview: [facility] for 04-20 Formattin ity of routine routine 00:00: g of this [place] gynecologi gynecologi note Me dical billy billy might be Branch examinatio examinatio different n n from the original. ICD10 Diagnosis Term School Director Utility Fatigue Fatigue Disease Active Univers 8 ity of 00:00: [place] 00 Medical Branch General General Disease Active Overview: Univ ers counseling counseling 12-22 Formattin ity of and advice and advice 00:00: g of this [place] for for 00 note Medical contracept contracept might be Branch gala gala different management management from the original. ICD10 Diagnosis Term School Director Utility Allergies, Adverse Reactions, Alerts Allergy Allergy Status Severity Reaction(s) Onset Inactive Treating Comm ents Source Name Type Date Date Clinician NO KNOWN Drug Active [facility] ALLERGIE Class ity of S [facility] Social History Social Habit Start Date Stop Date Quantity Comments Source Exposure to Not sure [facility] SARS-CoV-2 [place] Medical (event) Branch Alcohol intake 2022-03-07 2022-03-07 Current [facility] 00:00:00 00:00:00 non-drinker of [facility] [place] [facility] alcohol (finding) [place] Tobacco use and 2014-03-25 2014-03-25 Smokeless tobacco Un iversity of exposure 00:00:00 00:00:00 non-user [facility] Sex Assigned [birth year] Universit y of 00:00:00 00:00:00 [facility] Smoking Status Start Date Stop Date Source Never smoked tobacco [facility] Medications Ordered Filled Start Stop Current Ordering Indication Dosage Frequency Signature Comments Components Source Medication Medication Date Date Medication? Clinician (SIG) Name Name gabapentin 2019- Yes [id number] 300mg Take 1 Univers 300 mg 1-12 capsule by ity of capsule 00:00: mouth 3 [place] 00 (three) Medical times Branch daily. gabapentin 2019- Yes [id number] 300mg Take 1 Univers 300 mg 1-12 capsule by ity of capsule 00:00: mouth 3 [place] 00 (three) Medical times Branch daily. gabapentin 2019- Yes [id number] 300mg Take 1 Univers 300 mg 1-12 capsule by ity of capsule 00:00: mouth 3 [place] 00 (three) Medical times Branch daily. FENTanyl 2019-08- No 400ug 400 mcg, Uni vers (ACTIQ) 08-29 Buccal, ity of lollipop 20:00: 19:00 ONCE, 1 [place] 400 mcg 00 :00 dose, [facility] Medical 06/29/20 at Branch 1400, Routine sulfamethox 2019-08- No [id number] 1{tbl} Take 1 Univers azole-trime 08-29 tablet by it y of thoprim 00:00: 05:59 mouth 2 [place] (BACTRIM 00 :00 (two) Medical DS) 800-160 times Branch mg per daily for tablet 7 days. sulfamethox 2019-08- No [id number] 1{tbl} Take 1 Univers azole-trime 08-29 tablet by it y of thoprim 00:00: 05:59 mouth 2 [place] (BACTRIM 00 :00 (two) Medical DS) 800-160 times Branch mg per daily for tablet 7 days. sulfamethox 2019-08- No [id number] 1{tbl} Take 1 Univers azole-trime 08-29 tablet [...] 25mg Take 1 Univer s 25 mg -03 tablet by ity of tablet 00:00: mouth [place] 00 every 6 Medical (six) Branch hours as needed for Dizziness. ondansetron 2017- Yes 8mg Take 1 Univ ers (ZOFRAN) 8 1-03 tablet by ity of mg tablet 00:00: mouth [place] 00 every 8 Medical (eight) Branch hours as needed for Nausea and Vomiting (N/V). meclizine 2017- Yes 25mg Take 1 Univer s 25 mg 1-03 tablet by ity of tablet 00:00: mouth [place] 00 every 6 Medical (six) Branch hours as needed for Dizziness. ondansetron 2017-08 Yes 8mg Take 1 Univ ers (ZOFRAN) 8 1-03 tablet by ity of mg tablet 00:00: mouth [place] 00 every 8 Medical (eight) Branch hours as needed for Nausea and Vomiting (N/V). meclizine 2017- Yes 25mg Take 1 Univer s 25 mg 1-03 tablet by ity of tablet 00:00: mouth [place] 00 every 6 Medical (six) Branch hours as needed for Dizziness. ondansetron 2017- Yes 8mg Take 1 Univ ers (ZOFRAN) 8 1-03 tablet by ity of mg tablet 00:00: mouth [place] 00 every 8 Medical (eight) Branch hours as needed for Nausea and Vomiting (N/V). meclizine 2017- Yes 25mg Take 1 Univer s 25 mg 1-03 tablet by ity of tablet 00:00: mouth [place] 00 every 6 Medical (six) Branch hours as needed for Dizziness. ondansetron 2017-08 Yes 8mg Take 1 Univ ers (ZOFRAN) 8 1-03 tablet by ity of mg tablet 00:00: mouth [place] 00 every 8 Medical (eight) Branch hours as needed for Nausea and Vomiting (N/V). meclizine 2017- Yes 25mg Take 1 Univer s 25 mg 1-03 tablet by ity of tablet 00:00: mouth [place] 00 every 6 Medical (six) Branch hours as needed for Dizziness. ondansetron 2017- Yes 8mg Take 1 Univ ers (ZOFRAN) 8 1-03 tablet by ity of mg tablet 00:00: mouth [place] 00 every 8 Medical (eight) Branch hours as needed for Nausea and Vomiting (N/V). meclizine 2017- Yes 25mg Take 1 Univer s 25 mg 1-03 tablet by ity of tablet 00:00: mouth 00 every 6 Medical (six) Branch hours as needed for Dizziness. ondansetron 2017- Yes 8mg Take 1 [facility] ers (ZOFRAN) 8 1-03 tablet by ity of mg tablet 00:00: mouth 00 every 8 Medical (eight) Branch hours as needed for Nausea and Vomiting (N/V). Immunizations Ordered Filled Immunization Date Status Comments [facility] e Immunization Name Name [facility] 2015-04-20 Completed University of 00:00:00 [facility] 2015-04-20 Completed University of 00:00:00 [facility] 2015-04-20 [facility] University of 00:00:00 [facility] TDAP 2015-04-20 Completed University of 00:00:00 [facility] TD, NOS 2002-11-13 Completed University of 00:00:00 [facility] Td 2002-11-13 Completed University of 00:00:00 [facility] Td 2002-11-13 Completed University of 00:00:00 [facility] Td 2002-11-13 Completed University of 00:00:00 [facility] Td 2002-11-13 Completed University of 00:00:00 [facility] Td 2002-11-13 Completed University of 00:00:00 [facility] Vital Signs Vital Name Observation Time Observation Value Comments Source Systolic blood 2020-07-08 18:22:00 128 mm[Hg] Univer sity of pressure [facility] Diastolic blood 2020-07-08 18:22:00 84 mm[Hg] Unive rsity of pressure [facility] Heart rate 2020-07-08 18:22:00 70 /min [facility] Body temperature 2020-07-08 18:22:00 37.28 Dora [facility] Respiratory rate 2020-07-08 18:22:00 16 /min [facility] Body weight 2020-07-08 18:22:00 79.47 kg [facility] BMI 2020-07-08 18:22:00 30.07 kg/m2 [facility] Oxygen saturation in 2020-07-08 18:22:00 99 /min University of Arterial blood by [facility] [place] [facility] Pulse oximetry Branch Systolic blood 2020-07-08 18:22:00 128 mm[Hg] Univer sity of pressure [place] [facility] Diastolic blood 2020-07-08 18:22:00 84 mm[Hg] Unive rsity of pressure [place] [facility] Heart rate 2020-07-08 18:22:00 70 /min Universi ty of [facility] Body temperature 2020-07-08 18:22:00 37.28 Dora Univ ersity of [place] [facility] Respiratory rate 2020-07-08 18:22:00 16 /min Univ ersity of [place] [facility] Body weight 2020-07-08 18:22:00 79.47 kg Universi ty of [place] [facility] BMI 2020-07-08 18:22:00 30.07 kg/m2 Universi ty of [facility] Oxygen saturation in 2020-07-08 18:22:00 99 /min University of Arterial blood by [facility] [place] [facility] Pulse oximetry Branch Systolic blood 2020-07-04 15:06:00 [...] 18:48:00 97 mm[Hg] Unive rsity of pressure [place] [facility] Heart rate 2020-06-29 18:48:00 73 /min Universi ty of [facility] Body temperature 2020-06-29 18:48:00 36.94 Dora Univ ersity [facility] Respiratory rate 2020-06-29 18:48:00 16 /min [facility] Body weight 2020-06-29 18:48:00 79.153 kg Universi ty [facility] BMI 2020-06-29 18:48:00 29.95 kg/m2 Universi ty [facility] Systolic blood 2020-06-29 18:48:00 194 mm[Hg] Univer sity of [facility] Diastolic blood 2020-06-29 18:48:00 97 mm[Hg] Unive rsity of [facility] Heart rate 2020-06-29 18:48:00 73 /min Universi ty of [facility] Body temperature 2020-06-29 18:48:00 36.94 Dora [facility] Respiratory rate 2020-06-29 18:48:00 16 /min [facility] Body weight 2020-06-29 18:48:00 79.153 kg Universi ty [facility] BMI 2020-06-29 18:48:00 29.95 kg/m2 Universi ty [facility] Procedures Procedure Date / Time Performing Clinician Source Performed CONSENT TO PHOTOGRAPH 2020-06-29 06:01:00 Doctor Unassigned, No [facility] Name [facility] Branch REFERRAL OCCUPATIONAL 2020-06-29 00:00:00 Emelyn Jorgensen [facility] Encounters Start End Encounter Admission Attending Care Care Encounter Source Date/Time Date/Time Type Type Clinicians Facility Department ID 2022-10-09 2022-10-09 Telephone [facility] [id number] [facility] 00:00:00 00:00:00 , Misti CLINICAL BIOSTATISTICIAN [id number] ity General acute hospital [id number] Timothy as MATERNAL [id number] [facility] ical & CHILD [address] [place] [address] 2020-07-09 2020-07-09 Ancillary Room, Esthela [id number] 09:42:24 10:42:24 Visit Dolly-Occup Prosper [id number] Therapy Tub [facility] [id number] 2020-07-09 2020-07-09 Ancillary Room, Dolly-Occup Therapy Tub Delia ie [id number] Univers 09:42:24 10:42:24 Visit Alex Gore [id number] ity of [facility] 4.2.7.2.686 Timothy as [id number] [address] 2020-07-08 2020-07-08 [facility] Esthela Corea [id number] 12:13:08 23:59:00 Encounter Mikaelaserene Serene Cheng [id number]2.686 [id number] [facility] 2020-07-08 2020-07-08 [facility] Michael Corea 1.2.840 .[id number] Univers 12:13:08 23:59:00 Encounter Ravi Solis 350.1 .13.10 ity of [facility] 4.2.7.2.686 Timothy as [id number] [address] 2020-07-08 2020-07-08 [facility] [id number] Univers 12:30:00 12:30:00 [facility] 2020-07-04 2020-07-04 [facility] Esthela Corea [id number] 09:06:00 23:59:00 Encounter Mikaelaserene Bonds [place] [id number] [facility] 4.2.7.2.686 [id number] [facility] 2020-07-04 2020-07-04 [facility] Esthela Corea [id number] Univers 09:06:00 23:59:00 Encounter Mikaelaserene Bonds [place] 350.1.13.10 ity of [facility] 4.2.7.2.686 Timothy as [id number] [address] 2020-07-04 2020-07-04 [facility] [id number] Univers 09:00:00 09:00:00 [facility] 2020-06-30 2020-06-30 Ancillary Room, Esthela [id number] 08:06:31 09:06:31 Visit Dolly-Occup [place] [id number] Therapy Tub [facility] 4.2.7.2.686 [id number] 2020-06-30 2020-06-30 Ancillary Room, Dolly-Occup Therapy Tub Delia ie [id number] [facility] 08:06:31 09:06:31 Visit Alex Gore [id number] ity of [facility] 4.2.7.2.686 Timothy as [id number] [facility] 178 Branch 2020-06-29 2020-06-29 Hospital Corona Turner [id number] 12:30:00 23:59:00 Encounter Prosper 350.1.13.10 [facility] 4.2.7.2.686 [id number] 2020-06-29 2020-06-29 [facility] Corona Turner [id number] [facility] 12:30:00 23:59:00 Encounter Michael Corea [place] 350.1.13.1 0 ity of [facility] 4.2.7.2.686 Timothy as [id number] [facility] 184 Branch 2020-06-29 2020-06-29 Outpatient O CORONA TURNER [facility] [id number] Univers 12:30:00 12:30:00 ity of [facility] 2020-06-29 2020-06-29 Outpatient Hortencia GORE [facility] [id number] Univers 08:00:00 08:00:00 ALEX ity [facility] 2020-06-25 2020-06-25 Outpatient U CORONA TURNER [facility] [id number] Univers 00:00:00 23:59:00 ity [facility] Results Test Description Test Time Test Comments Results Result Sour e Comments REFERRAL 2020-06-29 Consult University of [facility] 00:00:00 received and [place] [facility] THERAPY chart reviewed Branch via [employer]. ?Please refer to progress notes for details. Rosa Johnson [id number] pgr.
--- NOTE | 2022-10-11 19:23 | ER ---
Nurse's Notes [facility] Name: Chelsie Scales Age: 42 yrs Sex: Female : 1980 Arrival Date: 10/11/2022 Time: 17:16 Bed IW1 Private MD: Diagnosis: Encounter for repeat Hcg Presentation: 10/11 17:59 Chief complaint: Patient states: Here to have HCG level rechecked. Denies vaginal ss bleeding. Coronavirus screen: Client denies travel out of the [place] in the last 14 days. Ebola Screen: Patient denies exposure to infectious person. Patient denies travel to an Ebola-affected area in the 21 days before illness onset. Initial Sepsis Screen: Does the patient meet any 2 criteria? No. Patient's initial sepsis screen is negative. Does the patient have a suspected source of infection? No. Patient's initial sepsis screen is negative. Risk Assessment: Do you want to hurt yourself or someone else? Patient reports no desire to harm self or others. Onset of symptoms is unknown. 17:59 Method Of Arrival: Ambulatory ss 17:59 Acuity: KRUPA 4 ss PEDIATRIC OCCUPATIONAL THERAPIST: 18:45 5, 2, Living 2 kb Historical: - Allergies: 18:00 No Known Allergies; ss - PMHx: 18:00 Vertigo; ss - PSHx: 18:00 section; ss - Immunization history:: Client reports receiving the 1st dose of the Covid vaccine. - Social history:: Smoking status: Patient denies any tobacco usage or history of. Vital Signs: 17:59 BP 126 / 78; Pulse 76; Resp 16; Temp 98.2(TE); Pulse Ox 100% on R/A; Weight 81.65 kg; ss Height 5 ft. 2 in. (157.48 cm); 17:59 Body Mass Index 32.92 (81.65 kg, 157.48 cm) ED Course: 17:16 Patient arrived in ED. rg4 17:36 Kim [facility]C [facility] kb 17:36 Sathya Valdez MD is Attending Physician. kb 18:00 Triage completed. ss 18:00 Arm band placed on left wrist. ss Administered Medications: No medications were administered Outcome: 19:22 Discharge ordered by . kb 19:25 Patient left the ED. kb Signatures: Kim Thompson, DAIRY BAR MANAGER-C DAIRY BAR MANAGER-Ckb Deandra Butts, RN RN ss Hamida Choi rg4
--- NOTE | 2022-10-11 19:23 | EDPHYS ---
Physician Documentation [facility] Name: Chelsie Scales Age: 42 yrs Sex: Female : 1980 Arrival Date: 10/11/2022 Time: 17:16 Bed IW1 Private MD: ED Physician Sathya Valdez HPI: 10/11 18:45 This 42 yrs old Female presents to ER via Ambulatory with complaints of HCG kb Level Recheck. 18:45 The patient presents to the emergency department with abdominal pain. course: kb care: at a clinic. Previous pregnancies: in previous pregnancies patient has had. Associated signs and symptoms: Pertinent positives: abdominal pain, Pertinent negatives: vaginal bleeding. The patient has not experienced similar symptoms in the past. The patient has been recently seen at the [facility] Emergency Department, this week. Patient reports she started having abdominal cramping 7 days ago was seen here, ultrasound showed IUP. Came back 2 days ago due to spotting, labs and ultrasound done at that visit as well. Came back in today for repeat hCG level. Reports spotting has resolved but abdominal cramping continues.. COMMODITY ANALYST: 18:45 5, 2, Living 2 kb Historical: - Allergies: 18:00 No Known Allergies; ss - PMHx: 18:00 Vertigo; ss - PSHx: 18:00 section; ss - Immunization history:: Client reports receiving the 1st dose of the Covid vaccine. - Social history:: Smoking status: Patient denies any tobacco usage or history of. ROS: 18:43 Constitutional: Negative for fever, chills, and weight loss. kb 18:43 Abdomen/GI: Positive for abdominal cramps, Negative for nausea, vomiting, and diarrhea. 18:43 All other systems are negative. Exam: 18:43 Constitutional: This is a well developed, well nourished patient who is awake, alert, kb and in no acute distress. Head/Face: Normocephalic, atraumatic. ENT: Moist Mucous membranes Cardiovascular: Regular rate and rhythm with a normal S1 and S2. No gallops, murmurs, or rubs. No pulse deficits. Respiratory: Respirations even and unlabored. No increased work of breathing. Talking in full sentences Abdomen/GI: Soft, non-tender. No distention Skin: Warm, dry with normal turgor. Normal color. MS/ Extremity: Pulses equal, no cyanosis. Neurovascular intact. Full, normal range of motion. Neuro: Awake and alert, GCS 15, oriented to person, place, time, and situation. Moves all extremities. Normal gait. Vital Signs: 17:59 BP 126 / 78; Pulse 76; Resp 16; Temp 98.2(TE); Pulse Ox 100% on R/A; Weight 81.65 kg; ss Height 5 ft. 2 in. (157.48 cm); 17:59 Body Mass Index 32.92 (81.65 kg, 157.48 cm) ss MDM: 18:00 Patient medically screened. kb 18:43 Data reviewed: vital signs, nurses notes. kb 18:44 Differential diagnosis: threatened Ab, abd pain in . External Records kb Reviewed: previous hcg reviewed. 19:21 Counseling: I had a detailed discussion with the patient and/or guardian regarding: the kb historical points, exam findings, and any diagnostic results supporting the discharge/admit diagnosis, lab results, the need for outpatient follow up, an OB/Gyne specialist, to return to the emergency department if symptoms worsen or persist or if there are any questions or concerns that arise at home. 10/11 17:35 Order name: HCG-Quantitative bs3 10/11 19:20 Order name: HCG, Quantitative; Complete Time: 19:21 EDMS Administered Medications: No medications were administered Disposition Summary: 10/11/22 19:22 Discharge Ordered Location: Home kb Condition: Stable kb Diagnosis - Encounter for repeat Hcg kb Followup: kb - With: Emergency Department - When: As needed - Reason: Worsening of condition Followup: kb - With: Private Physician - When: 2 - 3 days - Reason: Recheck today's complaints, Continuance of care, Re-evaluation by your physician Discharge Instructions: - Discharge Summary Sheet kb - Threatened Miscarriage, [id number] kb Forms: - Medication Reconciliation Form kb - Thank You Letter kb - Antibiotic Education kb - Prescription Opioid Use kb Signatures: Dispatcher [employer] EDMS Kim Thompson FNP-C FNP-Ckb Smirch, Shelby, RN RN ss
[2022-10-11 19:29] VITALS: BP 126/78; TEMP 98.2; O2SAT 100
== END 2022-10-11 19:25 | disposition home or self-care (01) ==
LOC: ER 17:12
DX: Z32.00 Encounter for pregnancy test, result unknown (principal)
CPT/HCPCS: 36415; 84702

== ENCOUNTER 2022-10-12 11:50 | Emergency (ER) | payer SELFPAY ==
--- OUTSIDE RECORDS SUMMARY | 2022-10-12 11:54 | XMS REPORT | Continuity of Care Document ---
:1980 Author Organization [facility] t Address [address] [place] [address] Care Team Providers Name Role Phone PCP, PATIENT DOES NOT HAVE A Primary Care Physician UnavailALEX Manriquez Attending Clinician Unavailable DALJIT MAR Attending Clinician Unavailable Misti Patel Attending Clinician [phone] Room, [facility] Attending Clinician Unavailable Alex Gore MD Attending Clinician Michael Corea MD Attending Clinician Ravi Solis MD Attending Clinician [phone] MICHAEL COREA Attending Clinician Unavailable Corona [...] Formattin ity of 00:00: g of this [place] 00 note Medical might be Branch different from the original. 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 Utility Allergies, Adverse Reactions, Alerts Allergy Allergy Status Severity Reaction(s) Onset Inactive Treating Comm ents Source Name Type Date Date Clinician NO KNOWN Drug Active [facility] ALLERGIE Class ity of S [facility] Social History Social Habit Start Date Stop Date Quantity Comments Source Exposure to Not sure [facility] SARS-CoV-2 [place] Medical (event) Branch Alcohol intake 2022-03-07 2022-03-07 Current [facility] 00:00:00 00:00:00 non-drinker of [facility] alcohol (finding) [place] Tobacco use and 2014-03-25 2014-03-25 Smokeless tobacco Un iversity of exposure 00:00:00 00:00:00 non-user [facility] Sex Assigned At [birth year] Universit y of 00:00:00 00:00:00 [facility] Smoking Status Start Date Stop Date Source Never smoked tobacco [facility] Medications Ordered Filled Start Stop Current Ordering Indication Dosage Frequency Signature Comments Components Source Medication Medication Date Date Medication? Clinician (SIG) Name Name gabapentin 2019- Yes [id number] 300mg Take 1 Univers 300 mg 1-12 capsule by ity of capsule 00:00: mouth 3 [place] 00 (three) Medical times Branch daily. gabapentin 2019- Yes [id number] 300mg Take 1 Univers 300 mg 1-12 capsule by ity of capsule 00:00: mouth 3 [place] 00 (three) Medical times Branch daily. gabapentin 2019- Yes [id number] 300mg Take 1 Univers 300 mg 1-12 capsule by ity of capsule 00:00: mouth 3 [place] 00 (three) Medical times Branch daily. FENTanyl 2019-08- No 400ug 400 mcg, Uni vers (ACTIQ) 08-29 Buccal, ity of lollipop 20:00: 19:00 ONCE, 1 [place] 400 mcg 00 :00 dose, [facility] Medical 06/29/20 at Branch 1400, Routine sulfamethox 2019-08- No [id number] 1{tbl} Take 1 Univers azole-trime 08-29 tablet by it y of thoprim 00:00: 05:59 mouth 2 [place] (BACTRIM 00 :00 (two) Medical DS) 800-160 times Branch mg per daily for tablet 7 days. sulfamethox 2019-08- No [id number] 1{tbl} Take 1 Univers azole-trime 08-29 tablet by it y of thoprim 00:00: 05:59 mouth 2 [place] (BACTRIM 00 :00 (two) Medical DS) 800-160 times Branch mg per daily for tablet 7 days. sulfamethox 2019-08- No [id number] 1{tbl} Take 1 Univers azole-trime 08-29 tablet [...] Dizziness. ondansetron 2017- Yes 8mg Take 1 [facility] ers (ZOFRAN) 8 1-03 tablet by ity of mg tablet 00:00: mouth 00 every 8 Medical (eight) Branch hours as needed for Nausea and Vomiting (N/V). Immunizations Ordered Filled Immunization Date Status Comments [facility] e Immunization Name Name [facility] 2015-04-20 Completed University of 00:00:00 [place] [facility] 2015-04-20 Completed University of 00:00:00 [facility] 2015-04-20 Completed University of 00:00:00 [facility] [place] [facility] University [facility] 00:00:00 [facility] [place] [facility] 2015-[facility] Completed University of 00:00:00 [facility] TDAP 2015-04-20 Completed University of 00:00:00 [facility] TD, NOS 2002-11-13 Completed University of 00:00:00 [facility] Td 2002-11-13 Completed University of 00:00:00 [facility] Td 2002-11-13 Completed University of 00:00:00 [facility] Td 2002-11-13 Completed University of 00:00:00 [facility] Td 2002-11-13 Completed University of 00:00:00 [facility] Td 2002-11-13 Completed University of 00:00:00 [facility] Vital Signs Vital Name Observation Time Observation Value Comments Source Systolic blood 2020-07-08 18:22:00 128 mm[Hg] Univer sity of pressure [facility] Diastolic blood 2020-07-08 18:22:00 84 mm[Hg] Unive rsity of pressure [facility] Heart rate 2020-07-08 18:22:00 70 /min [facility] Body temperature 2020-07-08 18:22:00 37.28 Dora [facility] Respiratory rate 2020-07-08 18:22:00 16 /min [facility] Body weight 2020-07-08 18:22:00 79.47 kg [facility] BMI 2020-07-08 18:22:00 30.07 kg/m2 [facility] Oxygen saturation in 2020-07-08 18:22:00 99 /min University of Arterial blood by [facility] Pulse oximetry Branch Systolic blood 2020-07-08 18:22:00 128 mm[Hg] Univer sity of pressure [place] [facility] Diastolic blood 2020-07-08 18:22:00 84 mm[Hg] Unive rsity of pressure [place] [facility] Heart rate 2020-07-08 18:22:00 70 /min Universi ty of [facility] Body temperature 2020-07-08 18:22:00 37.28 Dora Univ ersity of [place] [facility] Respiratory rate 2020-07-08 18:22:00 16 /min Univ ersity of [place] [facility] Body weight 2020-07-08 18:22:00 79.47 kg Universi ty of [place] [facility] BMI 2020-07-08 18:22:00 30.07 kg/m2 Universi ty of [facility] Oxygen saturation in 2020-07-08 18:22:00 99 /min University of Arterial blood by [facility] Pulse oximetry Branch Systolic blood 2020-07-04 15:06:00 136 mm[Hg] Univer sity of pressure [place] [facility] Diastolic blood 2020-07-04 15:06:00 73 mm[Hg] Unive rsity of pressure [place] [facility] Heart rate 2020-07-04 15:06:00 78 /min Universi ty of [place] [facility] Body temperature 2020-07-04 15:06:00 36.33 Dora Univ ersity of [place] [facility] Respiratory rate 2020-07-04 15:06:00 16 /min Univ ersity of [place] [facility] Systolic blood 2020-07-04 15:06:00 136 mm[Hg] Univer sity of pressure [place] [facility] Diastolic blood 2020-07-04 15:06:00 73 mm[Hg] Unive rsity of pressure [place] [facility] Heart rate 2020-07-04 15:06:00 78 /min Universi ty of [place] [facility] Body temperature 2020-07-04 15:06:00 36.33 Dora Univ ersity of [place] [facility] Respiratory rate 2020-07-04 15:06:00 16 /min Univ ersity of [place] [facility] Systolic blood 2020-06-29 18:48:00 194 mm[Hg] Univer sity of pressure [place] [facility] Diastolic blood 2020-06-29 18:48:00 97 mm[Hg] Unive rsity of pressure [place] [facility] Heart rate 2020-06-29 18:48:00 73 /min Universi ty of [facility] Body temperature 2020-06-29 18:48:00 36.94 Dora Univ ersity [facility] Respiratory rate 2020-06-29 18:48:00 16 /min [facility] Body weight 2020-06-29 18:48:00 79.153 kg Universi ty [facility] BMI 2020-06-29 18:48:00 29.95 kg/m2 Universi ty [facility] Systolic blood 2020-06-29 18:48:00 194 mm[Hg] Univer sity of [facility] Diastolic blood 2020-06-29 18:48:00 97 mm[Hg] Unive rsity of [facility] Heart rate 2020-06-29 18:48:00 73 /min Universi ty of [facility] Body temperature 2020-06-29 18:48:00 36.94 Dora [facility] Respiratory rate 2020-06-29 18:48:00 16 /min [facility] Body weight 2020-06-29 18:48:00 79.153 kg Universi ty [facility] BMI 2020-06-29 18:48:00 29.95 kg/m2 Universi ty [facility] Procedures Procedure Date / Time Performing Clinician Source Performed CONSENT TO PHOTOGRAPH 2020-06-29 06:01:00 Doctor Unassigned, No [facility] Branch REFERRAL OCCUPATIONAL 2020-06-29 00:00:00 Emelyn Jorgensen [facility] Encounters Start End Encounter Admission Attending Care Care Encounter Source Date/Time Date/Time Type Type Clinicians Facility Department ID 2022-10-09 2022-10-09 Telephone [facility] [id number] [facility] 00:00:00 00:00:00 , Misti [employer] [id number] ity General acute hospital [id number] Timothy as MATERNAL [id number] [facility] ical & CHILD [address] [place] [address] 2020-07-09 2020-07-09 Ancillary Room, Esthela [id number] 09:42:24 10:42:24 Visit Dolly-Occup Prosper [id number] Therapy Tub [facility] 4.2.7.2.686 [id number] 2020-07-09 2020-07-09 Ancillary Room, Dolly-Occup Therapy Tub Delia ie [id number] Univers 09:42:24 10:42:24 Visit Alex Gore [id number] ity of [facility] 4.2.7.2.686 Timothy as [id number] [address] 2020-07-08 2020-07-08 [facility] Esthela Corea [id number] 12:13:08 23:59:00 Encounter Mikaelaserene Serene Cheng [id number]2.686 [id number] [facility] 2020-07-08 2020-07-08 [facility] Michael Corea 1.2.840 .[id number] Univers 12:13:08 23:59:00 Encounter Ravi Solis 350.1 .13.10 ity of [facility] 4.2.7.2.686 Timothy as [id number] [address] 2020-07-08 2020-07-08 [facility] [id number] Univers 12:30:00 12:30:00 [facility] 2020-07-04 2020-07-04 [facility] Esthela Corea [id number] 09:06:00 23:59:00 Encounter Mikaelaserene Bonds Prosper [id number] [facility] 4.2.7.2.686 [id number] [facility] 2020-07-04 2020-07-04 [facility] Esthela Corea [id number] Univers 09:06:00 23:59:00 Encounter Mikaelaserene Bonds [place] [id number] ity of [facility] 4.2.7.2.686 Timothy as [id number] [address] 2020-07-04 2020-07-04 [facility] [id number] Univers 09:00:00 09:00:00 [facility] 2020-06-30 2020-06-30 Ancillary Room, Esthela [id number] 08:06:31 09:06:31 Visit Dolly-Occup Bryant [id number] Therapy Tub [facility] 4.2.7.2.686 [id number] 2020-06-30 2020-06-30 Ancillary Room, Dolly-Occup Therapy Tub Delia ie [id number] [facility] 08:06:31 09:06:31 Visit Alex Gore [id number] ity of [facility] 4.2.7.2.686 Timothy as [id number] [facility] 178 Branch 2020-06-29 2020-06-29 Hospital Corona Turner [id number] 12:30:00 23:59:00 Encounter Prosper [id number] [facility] 4.2.7.2.686 [id number] 2020-06-29 2020-06-29 [facility] Corona Turner [id number] [facility] 12:30:00 23:59:00 Encounter Michael Corea Bryant 350.1.13.1 0 ity of [facility] 4.2.7.2.686 Timothy as [id number] [facility] 184 Branch 2020-06-29 2020-06-29 Outpatient O CORONA TURNER [facility] [id number] Univers 12:30:00 12:30:00 ity of [facility] 2020-06-29 2020-06-29 Outpatient Hortencia GORE [facility] [id number] Univers 08:00:00 08:00:00 ALEX ity [facility] 2020-06-25 2020-06-25 Outpatient U CORONA [facility] [id number] Univers 00:00:00 23:59:00 ity [facility] Results Test Description Test Time Test Comments Results Result Sour e Comments REFERRAL 2020-06-29 Consult University of [facility] 00:00:00 received and [facility] THERAPY chart reviewed Branch via [employer]. ?Please refer to progress notes for details. Rosa Johnson [phone] pgr.
[2022-10-12 13:03] LABS: Urine Blood 3+ (Negative); Urine Glucose Negative (Negative); Urine Protein 2+ (Negative); Urine Specific Gravity >=1.030 (1.005-1.030)
[2022-10-12 13:06] LABS: Absolute Lymphocytes (CBC) 1.7 K/uL (0.7-4.9); Lymphocytes % 19.9 % (15.3-44.8); MCV 87.9 fL (80-100); MPV 9.7 fL (7.6-11.3); RBC Red Blood Cell Count 4.66 M/uL (3.86-4.86)
[2022-10-12 14:28] LABS: Potassium 3.6 mmol/L (3.5-5.1)
--- NOTE | 2022-10-12 14:33 | RAD REPORT ---
EXAM DESCRIPTION: US - 1St Trimest Single 1St Fetus - 10/12/2022 1:33 pm CLINICAL HISTORY: with pelvic pain COMPARISON: October 09, 2022 FINDINGS: The uterus measures 10 x 6 x 7 centimeters. Sac is present within the endometrium measuri ng 6 millimeters. pole not seen. Right and left ovary appear normal. The right and left adnexa are unremarkable No significant free fluid is seen. IMPRESSION: 6 millimeters sac within the endometrium may represent a sac associated with a viable in trauterine . The estimated gestational age would then be 5 weeks 1 day Other considerations include an incomplete and even a pseudo gestational sac associated with an ectopic . This all should be correlated clinically and with serial beta HCG levels. Followup endovaginal sonogr am in 1 week would be helpful for further evaluation
--- NOTE | 2022-10-12 14:48 | EDPHYS ---
Physician Documentation [facility] Name: Chelsie Scales Age: 42 yrs Sex: Female : 1980 Arrival Date: 10/12/2022 Time: 11:52 Bed 5 Private MD: ED Physician Freddy Vega HPI: 10/12 13:07 This 42 yrs old Female presents to ER via Ambulatory with complaints of sp3 Vaginal Bleeding, + Preg <12wks. 13:07 42-year-old female G5, currently at approximately 7 weeks by dates sp3 presents to the ED with vaginal bleeding since yesterday p.m. and mild lower abdominal cramping. Patient has been seen here multiple times over the last 2 weeks with the last hCG quantitative being 2568 on October 11. Denies any other symptoms including fever, URI symptoms, chest pain, shortness of breath, upper abdominal pain, rash, or any other symptoms.. 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 - Social history:: Smoking status: Patient denies any tobacco usage or history of. ROS: 13:09 Constitutional: Negative for fever, chills, and weight loss, Eyes: Negative for injury, sp3 pain, redness, and discharge, ENT: Negative for injury, pain, and discharge, Neck: Negative for injury, pain, and swelling, Cardiovascular: Negative for chest pain, palpitations, and edema, Respiratory: Negative for shortness of breath, cough, wheezing, and pleuritic chest pain, Back: Negative for injury and pain, MS/Extremity: Negative for injury and deformity, Skin: Negative for injury, rash, and discoloration, Neuro: Negative for headache, weakness, numbness, tingling, and seizure. 13:09 All other systems are negative. Exam: 13:09 Constitutional: This is a well developed, well nourished patient who is awake, alert, sp3 and in no acute distress. Head/Face: Normocephalic, atraumatic. Eyes: Pupils equal round and reactive to light, extra-ocular motions intact. Lids and lashes normal. Conjunctiva and sclera are non-icteric and not injected. Cornea within normal limits. Periorbital areas with no swelling, redness, or edema. ENT: Nares patent. No nasal discharge, no septal abnormalities noted. External auditory canals are clear. Oropharynx with no redness, swelling, or masses, exudates, or evidence of obstruction, uvula midline. Mucous membranes moist. Neck: Trachea midline, no thyromegaly or masses palpated, and no cervical lymphadenopathy. Supple, full range of motion without nuchal rigidity, or vertebral point tenderness. No Meningismus. Chest/axilla: Normal chest wall appearance and motion. Nontender with no deformity. No lesions are appreciated. Cardiovascular: Regular rate and rhythm with a normal S1 and S2. No gallops, murmurs, or rubs. Normal PMI, no JVD. No pulse deficits. Respiratory: Lungs have equal breath sounds bilaterally, clear to auscultation and percussion. No rales, rhonchi or wheezes noted. No increased work of breathing, no retractions or nasal flaring. Back: No spinal tenderness. No costovertebral tenderness. Full range of motion. Skin: Warm, dry with normal turgor. Normal color with no rashes, no lesions, and no evidence of cellulitis. MS/ Extremity: Pulses equal, no cyanosis. Neurovascular intact. Full, normal range of motion. Neuro: Awake and alert, GCS 15, oriented to person, place, time, and situation. Cranial nerves II-XII grossly intact. Motor strength 5/5 in all extremities. Sensory grossly intact. Cerebellar exam normal. Normal gait. Psych: Awake, alert, with orientation to person, place and time. Behavior, mood, and affect are within normal limits. 13:14 : Due to bleeding similar to light menses. Speculum exam not performed due to sp3 pending ultrasound. Will perform speculum exam if warranted.. Vital Signs: 12:41 BP 136 / 87; Pulse 71; Resp 17; Temp 98.4(O); Pulse Ox 100% on R/A; Weight 81.65 kg; jl7 Height 5 ft. 2 in. (157.48 cm); Pain 0/10; 13:57 BP 122 / 61; Pulse 75; Resp 18; Pulse Ox 100% on R/A; Pain 0/10; ld1 12:41 Body Mass Index 32.92 (81.65 kg, 157.48 cm) jl7 MDM: 12:43 Patient medically screened. sp3 13:09 Data reviewed: vital signs, nurses notes. ED course: Differential diagnosis includes sp3 threatened , active incomplete miscarriage, among others. Last ultrasound demonstrated proper yolk sac without adnexal swelling. We will repeat hCG quantitative, other labs and ultrasound. I have stressed to patient the need to see obstetrics and not keep returning here studies. We will ensure she has contact information for proper follow-up and reassure her that she can return here for any emergencies.. 14:46 ED course: Ultrasound demonstrates gestational sac at 5 weeks 1 day. hCG is at 3000 and sp3 is not increasing as much as it should. Given the fact the patient is bleeding, I will diagnosis as incomplete /miscarriage and counseled patient accordingly. Follow-up with obstetrics will be given for possible need for D\T\C.. 10/12 12:32 Order name: Abo/rh Typing; Complete Time: 14:00 sp3 10/12 12:32 Order name: Basic Metabolic Panel; Complete Time: 14:45 sp3 10/12 12:32 Order name: CBC with Diff; Complete Time: 14:00 sp3 10/12 12:32 Order name: Quantitative Hcg; Complete Time: 14:45 sp3 10/12 13:03 Order name: Urine --Ancillary (enter results) 10/12 13:04 Order name: Urine Dipstick-Ancillary; Complete Time: 14:00 EDMS 10/12 12:32 Order name: IV Saline Lock; Complete Time: 12:58 sp3 10/12 12:32 Order name: Labs collected and sent; Complete Time: 13:02 sp3 10/12 12:32 Order name: NPO; Complete Time: 13:02 sp3 10/12 12:32 Order name: Urine Dipstick-Ancillary (obtain specimen); Complete Time: 13:02 sp3 10/12 12:32 Order name: Urine Test (obtain specimen); Complete Time: 13:02 sp3 10/12 13:14 Order name: Labs - recollect needed: green top; Complete Time: 13:57 ss 10/12 13:33 Order name: 1St Trimest Single 1St Fetus; Complete Time: 14:45 EDMS Administered Medications: No medications were administered Disposition Summary: 10/12/22 14:47 Discharge Ordered Location: Home sp3 Condition: Stable sp3 Diagnosis - Incomplete spontaneous without complication sp3 Followup: sp3 - With: Homero Renteria MD - When: Upon discharge from the Emergency Department - Reason: Recheck today's complaints Discharge Instructions: - Discharge Summary Sheet sp3 - Incomplete Miscarriage sp3 Forms: - Medication Reconciliation Form sp3 - Thank You Letter sp3 - Antibiotic Education sp3 - Prescription Opioid Use sp3 Signatures: Dispatcher [employer] EDMS Deandra Butts RN RN Darion Gaffney RN RN jl7 Freddy Vega MD MD sp3 Corrections: (The following items were deleted from the chart) 13:33 12:32 Transvaginal Ob+US.RAD.BRZ ordered. EDMS EDMS
--- NOTE | 2022-10-12 14:48 | ER ---
Nurse's Notes [facility] Name: Chelsie Scales Age: 42 yrs Sex: Female : 1980 Arrival Date: 10/12/2022 Time: 11:52 Bed 5 Private MD: Diagnosis: Incomplete spontaneous without complication Presentation: 10/12 12:41 Chief complaint: Patient states: Vaginal bleeding brown/red since this morning, denies jl7 pain. Coronavirus screen: At this time, the client does not indicate any symptoms associated with coronavirus-19. Ebola Screen: No symptoms or risks identified at this time. Initial Sepsis Screen: Does the patient meet any 2 criteria? No. Patient's initial sepsis screen is negative. Does the patient have a suspected source of infection? No. Patient's initial sepsis screen is negative. Risk Assessment: Do you want to hurt yourself or someone else? Patient reports no desire to harm self or others. Onset of symptoms was October 12, 2022. 12:41 Method Of Arrival: Ambulatory jl7 12:41 Acuity: KRUPA 3 jl7 Triage Assessment: 12:43 General: Appears in no apparent distress. uncomfortable, Behavior is calm, cooperative, jl7 appropriate for age. Pain: Denies pain. : Reports vaginal bleeding that is. 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 - Social history:: Smoking status: Patient denies any tobacco usage or history of. Screenin:57 [facility] ED Fall Risk Assessment (Adult) History of falling in the last 3 months, ld1 including since admission No falls in past 3 months (0 pts). Abuse screen: Denies threats or abuse. Denies injuries from another. Nutritional screening: No deficits noted. Tuberculosis screening: No symptoms or risk factors identified. Assessment: 13:57 General: Appears in no apparent distress. comfortable, Behavior is calm, cooperative, ld1 appropriate for age. Pain: Denies pain. Neuro: Level of Consciousness is awake, alert, obeys commands, Oriented to person, place, time, situation. Cardiovascular: Capillary refill < 3 seconds Patient's skin is warm and dry. Respiratory: Airway is patent Respiratory effort is even, unlabored. GI: Abdomen is round non-distended. : Reports vaginal bleeding that is spotty. EENT: No signs and/or symptoms were reported regarding the EENT system. Derm: No signs and/or symptoms reported regarding the dermatologic system. Musculoskeletal: No signs and/or symptoms reported regarding the musculoskeletal system. Vital Signs: 12:41 BP 136 / 87; Pulse 71; Resp 17; Temp 98.4(O); Pulse Ox 100% on R/A; Weight 81.65 kg; jl7 Height 5 ft. 2 in. (157.48 cm); Pain 0/10; 13:57 BP 122 / 61; Pulse 75; Resp 18; Pulse Ox 100% on R/A; Pain 0/10; ld1 12:41 Body Mass Index 32.92 (81.65 kg, 157.48 cm) jl7 ED Course: 11:52 Patient arrived in ED. mr 12:31 Freddy Vega MD is Attending Physician. sp3 12:42 Triage completed. jl7 12:43 Arm band placed on right wrist. jl7 12:58 Olive Hughes, RN is Primary Nurse. ld1 12:58 No provider procedures requiring assistance completed. Inserted saline lock: 20 gauge ld1 in right antecubital area, using aseptic technique. 13:33 1St Trimest Single 1St Fetus In Process Unspecified. EDMS 13:57 Patient has correct armband on for positive identification. Placed in gown. Bed in low ld1 position. Call light in reach. Side rails up X2. equipment inspector on. Pulse ox on. NIBP on. Door closed. Noise minimized. Warm blanket given. 14:47 Homero Renteria MD is Referral Physician. sp3 15:32 IV discontinued, intact, bleeding controlled, No redness/swelling at site. ld1 Administered Medications: No medications were administered Medication: 13:57 VIS not applicable for this client. ld1 Outcome: 14:47 Discharge ordered by . sp3 15:32 Discharged to home ambulatory, with family. ld1 15:32 Condition: stable 15:32 Discharge instructions given to patient, family, Instructed on discharge instructions, follow up and referral plans. Demonstrated understanding of instructions, follow-up care. 15:32 Patient left the ED. ld1 Signatures: Dispatcher [employer] Pau Jean-BaptistealDarion RN RN jl7 Olive Hughes RN RN ld1 Freddy Vega MD MD sp3
[2022-10-12 15:33] LABS: Urine Specific Gravity/Preg >1.030 (1.005-1.030)
[2022-10-12 15:41] VITALS: TEMP 98.4; O2SAT 100
[2022-10-12 15:42] VITALS: BP 122/61
== END 2022-10-12 15:32 | disposition home or self-care (01) ==
LOC: ER 11:50
DX: O03.4 Incomplete spontaneous abortion without complication (principal)
CPT/HCPCS: 36415; 76801; 80048; 81003; 81025; 84702; 85025; 86900; 86901; 99284

== ENCOUNTER 2022-10-15 14:48 | Emergency (ER) | payer SELFPAY ==
--- OUTSIDE RECORDS SUMMARY | 2022-10-15 14:51 | XMS REPORT | Continuity of Care Document ---
:1980 Author Organization [facility] t Address [address] [place] [address] Care Team Providers Name Role Phone PCP, PATIENT DOES NOT HAVE A Primary Care Physician UnavailMACARENA Medel Attending Clinician Unavailable ALEX SANDERS Attending Clinician Unavailable DALJIT MAR Attending Clinician Unavailable Misti Patel Attending Clinician [phone] Room, [facility] Attending Clinician Unavailable Alex Gore MD Attending Clinician Michael Corea MD Attending Clinician Ravi Solis MD Attending Clinician MICHAEL COREA Attending Clinician Unavailable Corona Turner [...] Overweight Disease Active Overview : Univers 04-20 Formattin ity of 00:00: g of this [place] [id number] note Medical might be Branch different from the original. ICD10 Diagnosis Term Chemistry Account Manager Utility Encounter Encounter Disease Active Overview: [facility] for for 04-20 Formattin ity of routine routine 00:00: g of this [place] gynecologi gynecologi note Me dical billy billy might be Branch examinatio examinatio different n n from the original. ICD10 Diagnosis Term Chemistry Account Manager Utility Fatigue Fatigue Disease Active Univers 8 ity of 00:00: [place] 00 Medical Branch General General Disease Active Overview: Univ ers counseling counseling 12-22 Formattin ity of and advice and advice 00:00: g of this [place] for for 00 note Medical contracept contracept might be Branch gala gala different management management from the original. ICD10 Diagnosis Term Chemistry Account Manager Utility Allergies, Adverse Reactions, Alerts Allergy Allergy Status Severity Reaction(s) Onset Inactive Treating Comm ents Source Name Type Date Date Clinician NO KNOWN Drug Active [facility] ALLERGIE Class ity of S [facility] Social History Social Habit Start Date Stop Date Quantity Comments Source Exposure to Not sure [facility] SARS-CoV-2 [facility] (event) [place] Alcohol intake 2022-03-07 2022-03-07 Current [facility] 00:00:00 00:00:00 non-drinker of [facility] alcohol (finding) [place] Tobacco use and 2014-03-25 2014-03-25 Smokeless tobacco Un iversity of exposure 00:00:00 00:00:00 non-user [facility] Sex Assigned At [birth year] Universit y of 00:00:00 00:00:00 [facility] Smoking Status Start Date Stop Date Source Never smoked tobacco [facility] Medications Ordered Filled Start Stop Current Ordering Indication Dosage Frequency Signature Comments Components Source Medication Medication Date Date Medication? Clinician (SIG) Name Name gabapentin 2019- Yes [id number] 300mg Take 1 Univers 300 mg 1-12 capsule by ity of capsule 00:00: mouth 3 [place] (three) Medical times Branch daily. gabapentin 2019- Yes [id number] 300mg Take 1 Univers 300 mg 1-12 capsule by ity of capsule 00:00: mouth 3 [place] (three) Medical times Branch daily. gabapentin 2019- Yes [id number] 300mg Take 1 Univers 300 mg 1-12 capsule by ity of capsule 00:00: mouth 3 [place] (three) Medical times Branch daily. FENTanyl 2019-08- No 400ug 400 mcg, Uni vers (ACTIQ) 08-29 Buccal, ity of lollipop 20:00: 19:00 ONCE, 1 [place] 400 mcg 00 :00 dose, [facility] 06/29/20 at Branch 1400, Routine sulfamethox 2019-08- No [id number] 1{tbl} Take 1 Univers azole-trime 08-29 tablet by it y of thoprim 00:00: 05:59 mouth 2 [place] (BACTRIM 00 :00 (two) Medical DS) 800-160 times Branch mg per daily for tablet 7 days. sulfamethox 2019-08- No [id number] 1{tbl} Take 1 Univers azole-trime 08-29 tablet by it y of thoprim 00:00: 05:59 mouth 2 [place] (BACTRIM 00 :00 (two) Medical DS) 800-160 times Branch mg per daily for tablet 7 days. sulfamethox 2019-08- No [id number] 1{tbl} Take 1 Univers azole-trime 08-29 tablet by it y of thoprim 00:00: 05:59 mouth 2 [place] (BACTRIM 00 :00 (two) Medical DS) 800-160 times Branch mg per daily for tablet 7 days. HYDROcodone 2019-08- No [id number] 1{tbl} Take 1 U nivers -acetaminop 0-30 - tablet by it y of hen (NORCO) [...] Branch hours as needed for Dizziness. ondansetron 2018- Yes 8mg Take 1 Univ ers (ZOFRAN) 8 1-03 tablet by ity of mg tablet 00:00: mouth [place] 00 every 8 Medical (eight) Branch hours as needed for Nausea and Vomiting (N/V). meclizine 2018- Yes 25mg Take 1 Univer s 25 [...] needed for Nausea and Vomiting (N/V). meclizine 2018- Yes 25mg Take 1 Univer s 25 mg 1-03 tablet by ity of tablet 00:00: mouth [place] 00 every 6 Medical (six) Branch hours as needed for Dizziness. ondansetron 2018- Yes 8mg Take 1 Univ ers (ZOFRAN) 8 1-03 tablet by ity of mg tablet 00:00: mouth [place] 00 every 8 Medical (eight) Branch hours as needed for Nausea and Vomiting (N/V). meclizine 2018-1 Yes 25mg Take 1 Univer s 25 [...] Immunizations Ordered Filled Immunization Date Status Comments [facility] e Immunization Name Name TDAP 2015-04-20 Completed University of 00:00:00 [facility] TDAP 2015-04-20 Completed [facility] Completed University of 00:00:00 [facility] TDAP 2015-04-20 Completed University of 00:00:00 [facility] TD, NOS 2002-11-13 Completed University of 00:00:00 [facility] Td 2002-11-13 Completed University of 00:00:00 [facility] Td 2002-11-13 Completed University of 00:00:00 [facility] Branch Td 2002-11-13 Completed University of 00:00:00 [facility] Td 2002-11-13 Completed University of 00:00:00 [facility] Td 2002-11-13 Completed University of 00:00:00 [facility] Vital Signs Vital Name Observation Time Observation Value Comments Source Systolic blood 2020-07-08 18:22:00 128 mm[Hg] Univer sity of pressure [facility] Diastolic blood 2020-07-08 18:22:00 84 mm[Hg] Unive rsity of [facility] Heart rate 2020-07-08 18:22:00 70 /min [facility] Body temperature 2020-07-08 18:22:00 37.28 Dora [facility] [place] [facility] rate 2020-07-08 18:22:00 16 /min [facility] [place] [facility] Body weight 2020-07-08 18:22:[address] [facility] BMI 2020-07-08 18:22:00 30.07 kg/m2 [facility] Oxygen saturation in 2020-07-08 18:22:00 99 /min University of Arterial blood by [facility] Pulse oximetry Branch Systolic blood 2020-07-08 18:22:00 128 mm[Hg] Univer sity of pressure [place] [facility] Diastolic blood 2020-07-08 18:22:00 84 mm[Hg] Unive rsity of pressure [place] [facility] Heart rate 2020-07-08 18:22:00 70 /min Universi ty of [place] [facility] Body temperature 2020-07-08 18:22:00 37.28 Dora Univ ersity of [place] [facility] Respiratory rate 2020-07-08 18:22:00 16 /min Univ ersity of [place] [facility] Body weight 2020-07-08 18:22:00 79.47 kg Universi ty of [place] [facility] BMI 2020-07-08 18:22:00 30.07 kg/m2 Universi ty of [place] [facility] Oxygen saturation in 2020-07-08 18:22:00 99 /min University of Arterial blood by [facility] Pulse oximetry Branch Systolic blood 2020-07-04 15:06:00 136 mm[Hg] Univer sity of pressure [place] [facility] Diastolic blood 2020-07-04 15:06:00 73 mm[Hg] Unive rsity of pressure [place] [facility] Heart rate 2020-07-04 15:06:00 78 /min Universi ty of [place] [facility] Body temperature 2020-07-04 15:06:00 36.33 Dora Univ ersity of [place] [facility] Respiratory rate 2020-07-04 15:06:00 16 /min Univ ersity of [place] [facility] Systolic blood 2020-07-04 15:06:00 136 mm[Hg] Univer sity of pressure [place] [facility] Diastolic blood 2020-07-04 15:06:00 73 mm[Hg] Unive rsity of pressure [place] [facility] Heart rate 2020-07-04 15:06:00 78 /min Universi ty of [place] [facility] Body temperature 2020-07-04 15:06:00 36.33 Dora Univ ersity of [place] [facility] Respiratory rate 2020-07-04 15:06:00 16 /min Univ ersity of [place] [facility] Systolic blood 2020-06-29 18:48:00 194 mm[Hg] Univer sity of pressure [place] [facility] Diastolic blood 2020-06-29 18:48:00 97 mm[Hg] Unive rsity of pressure [facility] Heart rate 2020-06-29 18:48:00 73 /min Universi ty of [facility] Body temperature 2020-06-29 18:48:00 36.94 Dora Univ ersity [facility] Respiratory rate 2020-06-29 18:48:00 16 /min [facility] Body weight 2020-06-29 18:48:00 79.153 kg Universi ty of [facility] BMI 2020-06-29 18:48:00 29.95 kg/m2 Universi ty of [facility] Systolic blood 2020-06-29 18:48:00 194 mm[Hg] Univer sity of [facility] Diastolic blood 2020-06-29 18:48:00 97 mm[Hg] Unive rsity of pressure [facility] Heart rate 2020-06-29 18:48:00 73 /min Universi ty of [facility] Body temperature 2020-06-29 18:48:00 36.94 Dora Univ ersity [facility] Respiratory rate 2020-06-29 18:48:00 16 /min Univ ersity [facility] Body weight 2020-06-29 18:48:00 79.153 kg Universi ty of [facility] BMI 2020-06-29 18:48:00 29.95 kg/m2 Universi ty [facility] Procedures Procedure Date / Time Performing Clinician Source Performed CONSENT TO PHOTOGRAPH 2020-06-29 06:01:00 Doctor Unassigned, No [facility] Branch REFERRAL OCCUPATIONAL 2020-06-29 00:00:00 Emelyn Jorgensen [facility] Encounters Start End Encounter Admission Attending Care Care Encounter Source Date/Time Date/Time Type Type Clinicians Facility Department ID 2022-10-09 2022-10-09 Telephone [facility] [id number] [facility] 00:00:00 00:00:00 Misti mcadams SUBSTATION MANAGER [id number] 4[facility]2.7.2.686 Timothy as MATERNAL [id number] [facility] ical & CHILD [address] [place] [address] 2020-07-09 2020-07-09 Ancillary Room, Esthela [id number] 09:42:24 10:42:24 Visit Dolly-Dorian Cheng [id number] Therapy Tub [facility] 4.2.7.2.686 [id number] 2020-07-09 2020-07-09 Ancillary Room, Dolly-Occup Therapy Tub Delia ie [id number] Univers 09:42:24 10:42:24 Visit Mary Goreian Tala Cheng [id number] ity of [facility] 4.2.7.2.686 Timothy as [id number] [address] 2020-07-08 2020-07-08 [facility] Esthela Corea [id number] 12:13:08 23:59:00 Encounter Mikaelaserene Bonds Prosper [id number] [facility] 4.2.7.2.686 [id number] [facility] 2020-07-08 2020-07-08 [facility] Michael Corea 1.2.840 .[id number] [facility] 12:13:08 23:59:00 Encounter Ravi Solis 350.1 .13.10 ity [facility] 4.2.7.2.686 Timothy as [id number] [address] 2020-07-08 2020-07-08 Outpatient Hortencia COREA [facility] [id number] Univers 12:30:00 12:30:00 [facility] 2020-07-04 2020-07-04 [facility] Esthela Corea [id number] 09:06:00 23:59:00 Encounter Mikaelasereen Bonds [place] [id number]7.2.686 [id number] [facility] 2020-07-04 2020-07-04 [facility] Esthela Corea [id number] Univers 09:06:00 23:59:00 Encounter Mikaelaserene Bonds [place] [id number] ity [facility] 4.2.7.2.686 Timothy as [id number] [address] 2020-07-04 2020-07-04 [facility] [id number] Univers 09:00:00 09:00:00 [facility] Branch 2020-06-30 2020-06-30 Ancillary Room, Esthela [id number] 08:06:31 09:06:31 Visit Dolly-Occup Prosper [id number] Therapy Tub [facility] 4.2.7.2.686 [id number] 2020-06-30 2020-06-30 Ancillary Room, Dolly-Occup Therapy Tub Delia ie [id number] [facility] 08:06:31 09:06:31 Visit Alex Gore [id number] ity of [facility] 4.2.7.2.686 Timothy as [id number] [facility] 178 Branch 2020-06-29 2020-06-29 Hospital Corona Turner [id number] 12:30:00 23:59:00 Encounter [place] [id number] [facility] 4.2.7.2.686 [id number] 2020-06-29 2020-06-29 Hospital Corona Turner [id number] Univers 12:30:00 23:59:00 Encounter Michael Coreay 350.1.13.1 0 ity of [facility] 4.2.7.2.686 Timothy as [id number] [facility] 184 Branch 2020-06-29 2020-06-29 Outpatient CORONA SANCHEZ [facility] [id number] Univers 12:30:00 12:30:00 ity [facility] 2020-06-29 2020-06-29 Outpatient Hortencia GORE [facility] [id number] Univers 08:00:00 08:00:00 ALEX ity [facility] 2020-06-25 2020-06-25 Outpatient CORONA [facility] [id number] Univers 00:00:00 23:59:00 [facility] Results Test Description Test Time Test Comments Results Result Sour e Comments REFERRAL 2020-06-29 Consult University [facility] 00:00:00 received and [place] Medi billy THERAPY chart reviewed Branch via Xiaoi Robert. ?Please refer to progress notes for details. Rosa Johnson O.T.[phone] pgr.
[2022-10-15] MEDS ORDERED: NA CHLORIDE 0.9% 1,000 ML ONE (15:49)
[2022-10-15 15:52] LABS: Absolute Lymphocytes (CBC) 1.6 K/uL (0.7-4.9); Hematocrit 37.4 % (36.0-45.0); Lymphocytes % 13.5 % (15.3-44.8); MCV 87.6 fL (80-100); MPV 9.7 fL (7.6-11.3); RBC Red Blood Cell Count 4.27 M/uL (3.86-4.86)
[2022-10-15 16:19] LABS: Potassium 3.7 mmol/L (3.5-5.1)
--- NOTE | 2022-10-15 16:31 | RAD REPORT ---
EXAM DESCRIPTION: US - Transvaginal OB - 10/15/2022 4:18 pm CLINICAL HISTORY: with vaginal bleeding FINDINGS: The uterus measures 12 x 6 x 6 centimeters. The endometrial stripe measures 17 millimeter s. A gestational sac is not seen. Heterogeneous structures within the uterus probable fibroids. There present within the uterine body a nd measure up to 2.7 centimeters Ovaries are probably visualized and appear normal in size and echotexture The right and left adnexa unremarkable No significant free fluid IMPRESSION: Nonvisualization of a gestational sac within the endometrium. These findings could represent an early intrauterine in which the gestational sac is not se en. and even an ectopic can also result in this appearance. This all should be cor related clinically and with serial beta HCG levels. Followup endovaginal sonogram in 1 week recommend ed
[2022-10-15 16:59] LABS: Urine Blood 3+ (Negative); Urine Glucose Negative (Negative); Urine Protein Negative (Negative); Urine Specific Gravity <=1.005 (1.005-1.030)
--- NOTE | 2022-10-15 17:01 | ER ---
Nurse's Notes [facility] Name: Chelsie Scales Age: 42 yrs Sex: Female : 1980 Arrival Date: 10/15/2022 Time: 14:50 Bed 9 Private MD: Diagnosis: Complete or unspecified spontaneous without complication Presentation: 10/15 15:16 Coronavirus screen: At this time, the client does not indicate any symptoms associated aa5 with coronavirus-19. Ebola Screen: Patient denies travel to an Ebola-affected area in the 21 days before illness onset. Initial Sepsis Screen: Does the patient meet any 2 criteria? No. Patient's initial sepsis screen is negative. Does the patient have a suspected source of infection? No. Patient's initial sepsis screen is negative. Risk Assessment: Do you want to hurt yourself or someone else? Patient reports no desire to harm self or others. Onset of symptoms was September 2022. 15:16 Acuity: KRUPA 3 aa5 15:16 Method Of Arrival: Ambulatory aa5 15:16 Chief complaint: Pt's states "she is having a miscarriage and we were seen here aa5 a few days ago, they said she was 5 weeks along". Pt c/o vaginal bleeding x 4-5 days that became heavier yesterday and today. Reports abd cramping. Pt appears uncomfortable during triage. Pt's states he believes pt passed some tissue today. Historical: - Allergies: 15:16 No Known Allergies; aa5 - PMHx: 15:16 Vertigo; aa5 - PSHx: 15:16 section; aa5 - Immunization history:: Adult Immunizations unknown. - Social history:: Smoking status: Patient denies any tobacco usage or history of. Screenin:57 [facility] ED Fall Risk Assessment (Adult) History of falling in the last 3 months, mb9 including since admission No falls in past 3 months (0 pts) Confusion or Disorientation No (0 pts) Intoxicated or Sedated No (0 pts) Impaired Gait No (0 pts) Mobility Assist Device Used No (0 pt) Altered Elimination No (0 pt) Score/Fall Risk Level 0 - 2 = Low Risk Oriented to surroundings, Maintained a safe environment, Educated pt \\T\\ family on fall prevention, incl call for assistance when getting out of bed. Abuse screen: Denies threats or abuse. Nutritional screening: No deficits noted. Tuberculosis screening: No symptoms or risk factors identified. Assessment: 15:40 Reassessment: Pt states she passed some tissue and was able to collect it in a sterile aa5 specimen cup. . 15:41 Reassessment: Pt brought back to ER room. mb9 15:55 General: Appears uncomfortable, Behavior is cooperative. Pain: Complains of pain in mb9 abdomen Pain does not radiate. Is intermittent. Neuro: Level of Consciousness is awake, alert, obeys commands, Oriented to person, place, time, situation, Appropriate for age. Cardiovascular: Capillary refill < 3 seconds is brisk Patient's skin is warm and dry. Rhythm is regular. Respiratory: Airway is patent Respiratory effort is even, unlabored, Respiratory pattern is regular, symmetrical. GI: Abdomen is round non-distended, Bowel sounds present X 4 quads. Abd is soft Abdomen is tender to palpation in right lower quadrant and left lower quadrant. : Urine is blood tinged, Reports vaginal bleeding that is bright red, with clots. Derm: Skin is pink, warm \\T\\ dry. Musculoskeletal: Range of motion: intact in all extremities. 16:43 Reassessment: pt able to ambulate to restroom without assistance. Pt has steady gait. 9 17:30 Reassessment: Patient is alert, oriented x 3, equal unlabored respirations, skin aa5 warm/dry/pink. Vital Signs: 15:16 BP 141 / 95; Pulse 95; Resp 18 S; Temp 99.0(TE); Pulse Ox 100% on R/A; Weight 81.65 kg aa5 (R); Height 5 ft. 1 in. (154.94 cm) (R); 16:49 BP 138 / 78; Pulse 84; Resp 17; Pulse Ox 99% on R/A; mb9 17:23 BP 134 / 78; Pulse 88; Resp 16; mb9 15:16 Body Mass Index 34.01 (81.65 kg, 154.94 cm) 5 ED Course: 14:50 Patient arrived in ED. as 14:52 Arlene Sanchez FNP [facility] 14:52 Olaf Hurd MD is Attending Physician. [facility] 15:16 Triage completed. aa5 15:16 Arm band placed on. aa5 15:20 No provider procedures requiring assistance completed. Inserted saline lock: 22 gauge mb9 in right forearm, using aseptic technique. ,using aseptic technique. done by JIMY Ayala. 15:41 Pau Rodríguez, RN is Primary Nurse. mb9 15:45 POC walked down to lab by ER staff. aa5 15:57 Placed in gown. Bed in low position. Call light in reach. Side rails up X 1. Client mb9 placed on continuous cardiac and pulse oximetry monitoring. NIBP monitoring applied. Door closed. Noise minimized. Warm blanket given. 17:22 IV discontinued, intact, bleeding controlled, No redness/swelling at site. Pressure mb9 dressing applied. Administered Medications: 15:52 Drug: NS 0.9% 1000 ml Route: IV; Rate: 1 bolus; Site: right forearm; mb9 17:17 Follow up: Response: No adverse reaction; IV Status: Completed infusion mb9 17:22 Drug: Tylenol 650 mg Route: PO; mb9 17:35 Follow up: Response: No adverse reaction; Medication administered at discharge. aa5 Medication: 15:58 VIS not applicable for this client. mb9 Outcome: 17:01 Discharge ordered by . 7 17:35 Discharged to home ambulatory, with significant other. aa5 17:35 Condition: stable 17:35 Discharge instructions given to patient, significant other, Instructed on discharge instructions, follow up and referral plans. Demonstrated understanding of instructions, follow-up care. 17:38 Patient left the ED. aa5 Signatures: Yocasta Rivera Audri, RN RN aa5 Arlene Sanchez FNP [facility] Gil[facility], RN RN mb9 Corrections: (The following items were deleted from the chart) 15:19 15:16 81.65 kg Reported; Height 5 ft. 1 in. Reported; BMI: 34.0; aa5 aa5 15:20 15:16 Chief complaint: Pt's states "she is having a miscarriage and we were aa5 seen here a few days ago, they said she was 5 weeks along". Pt c/o vaginal bleeding x 4-5 days that became heavier yesterday and today. Reports abd cramping. Pt appears uncomfortable during triage. aa5 15:46 15:40 Reassessment: Pt states she passed some tissue . aa5 aa5
--- NOTE | 2022-10-15 17:01 | EDPHYS ---
Physician Documentation [facility] Name: Chelsie Scales Age: 42 yrs Sex: Female : 1980 Arrival Date: 10/15/2022 Time: 14:50 Bed 9 Private MD: ED Physician Olaf Hurd HPI: 10/15 15:16 This 42 yrs old Female presents to ER via Ambulatory with complaints of jh7 Vaginal Bleeding, Pelvic Pain. 15:16 The patient presents with vaginal bleeding that is moderate, with tissue. Onset: The jh7 symptoms/episode began/occurred 4 day(s) ago. Associated signs and symptoms: Pertinent positives: cramping, vaginal bleeding, Pertinent negatives: fever, nausea. Patient reports that she was 5 weeks and told 4 to 5 days ago that she was having a miscarriage. Reports that the bleeding increased yesterday and that she passed a small amount of tissue today. Also reports abdominal cramping. Reports that she sees an OB at the [facility].. Historical: - Allergies: 15:16 No Known Allergies; aa5 - PMHx: 15:16 Vertigo; aa5 - PSHx: 15:16 section; aa5 - Immunization history:: Adult Immunizations unknown. - Social history:: Smoking status: Patient denies any tobacco usage or history of. ROS: 15:16 Constitutional: Negative for fever, chills, and weight loss, Eyes: Negative for injury, jh7 pain, redness, and discharge, Cardiovascular: Negative for chest pain, palpitations, and edema, Respiratory: Negative for shortness of breath, cough, wheezing, and pleuritic chest pain, Back: Negative for injury and pain, MS/Extremity: Negative for injury and deformity, Skin: Negative for injury, rash, and discoloration, Neuro: Negative for headache, weakness, numbness, tingling, and seizure. 15:16 Abdomen/GI: Positive for abdominal cramps, Negative for abdominal pain, nausea, vomiting, and diarrhea, constipation. 15:16 : Positive for vaginal bleeding. 15:16 All other systems are negative. Exam: 15:16 Constitutional: This is a well developed, well nourished patient who is awake, alert, jh7 and in no acute distress. Head/Face: Normocephalic, atraumatic. Cardiovascular: Regular rate and rhythm with a normal S1 and S2. No gallops, murmurs, or rubs. Normal PMI, no JVD. No pulse deficits. Respiratory: Lungs have equal breath sounds bilaterally, clear to auscultation and percussion. No rales, rhonchi or wheezes noted. No increased work of breathing, no retractions or nasal flaring. Abdomen/GI: Soft, non-tender, with normal bowel sounds. No distension or tympany. No guarding or rebound. No evidence of tenderness throughout. Back: No spinal tenderness. No costovertebral tenderness. Full range of motion. Skin: Warm, dry with normal turgor. Normal color with no rashes, no lesions, and no evidence of cellulitis. MS/ Extremity: Pulses equal, no cyanosis. Neurovascular intact. Full, normal range of motion. Neuro: Awake and alert, GCS 15, oriented to person, place, time, and situation. Normal gait. 15:16 : Pelvic Exam: External exam: is normal, pt passed a moderate amount of tissue, before her US, likely products of conception. Vital Signs: 15:16 BP 141 / 95; Pulse 95; Resp 18 S; Temp 99.0(TE); Pulse Ox 100% on R/A; Weight 81.65 kg aa5 (R); Height 5 ft. 1 in. (154.94 cm) (R); 16:49 BP 138 / 78; Pulse 84; Resp 17; Pulse Ox 99% on R/A; mb9 17:23 BP 134 / 78; Pulse 88; Resp 16; mb9 15:16 Body Mass Index 34.01 (81.65 kg, 154.94 cm) aa5 MDM: 14:52 Patient medically screened. [facility] 17:01 Differential diagnosis: inevitable Ab, complete Ab, retained Ab, ovarian cyst. Data [facility] reviewed: vital signs, nurses notes, lab test result(s), radiologic studies, ultrasound. I considered the following discharge prescriptions or medication management in the emergency department Medications were administered in the Emergency Department. See MAR. Historians other than the Patient: Spouse/Significant Other: . Counseling: I had a detailed discussion with the patient and/or guardian regarding: the historical points, exam findings, and any diagnostic results supporting the discharge/admit diagnosis, the need for outpatient follow up, an OB/Gyne specialist, to return to the emergency department if symptoms worsen or persist or if there are any questions or concerns that arise at home. Special discussion: Based on the history and exam findings, there is no indication for further emergent testing or inpatient evaluation. I discussed with the patient/guardian the need to see the OB Gyne specialist for further evaluation of the symptoms. 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 Informed the patient that this is likely a complete miscarriage and that the products of conception will be sent to pathology. The patient understood the plan of care.. 10/15 15:16 Order name: Basic Metabolic Panel [facility] 10/15 15:16 Order name: CBC with Diff [facility] 10/15 15:16 Order name: Quantitative Hcg [facility] 10/15 16:08 Order name: CBC with Automated Diff; Complete Time: 16:31 [facility] 10/15 16:19 Order name: Basic Metabolic Panel; Complete Time: 16:31 [facility] 10/15 16:19 Order name: HCG, Quantitative; Complete Time: 16:31 [facility] 10/15 15:16 Order name: US Transvaginal Ob [facility] 10/15 15:16 Order name: IV Saline Lock; Complete Time: 15:34 [facility] 10/15 15:16 Order name: Labs collected and sent; Complete Time: 15:34 [facility] 10/15 16:31 Order name: US; Complete Time: 16:43 [facility] 10/15 16:59 Order name: Urine Dipstick-Ancillary; Complete Time: 17:00 [facility] 10/15 15:16 Order name: NPO; Complete Time: 15:34 [facility] 10/15 15:16 Order name: Urine Dipstick-Ancillary (obtain specimen); Complete Time: 16:58 [facility] 10/15 15:16 Order name: Urine Test (obtain specimen); Complete Time: 16:58 [facility] Administered Medications: 15:52 Drug: NS 0.9% 1000 ml Route: IV; Rate: 1 bolus; Site: right forearm; mb9 17:17 Follow up: Response: No adverse reaction; IV Status: Completed infusion mb9 17:22 Drug: Tylenol 650 mg Route: PO; mb9 17:35 Follow up: Response: No adverse reaction; Medication administered at discharge. aa5 Disposition: 17:47 Co-signature as Attending Physician, Olaf Hurd MD I agree with the assessment and kdr plan of care. Disposition Summary: 10/15/22 17:01 Discharge Ordered Location: Home [facility] Problem: new [facility] Symptoms: have improved [facility] Condition: Stable [facility] Diagnosis - Complete or unspecified spontaneous without complication [facility] Followup: [facility] - With: Private Physician - When: 2 - 3 days - Reason: Recheck today's complaints Discharge Instructions: - Discharge Summary Sheet [facility] - Miscarriage [facility] Forms: - Medication Reconciliation Form [facility] - Thank You Letter [facility] Signatures: Dispatcher [employer] EDNC Olaf Hurd MD MD kdr Calderon, Audri RN RN aa5 Arlene Sanchez FNP MORTGAGE ACCOUNTING CLERK 7 Pau Rodríguez, RN RN mb9
[2022-10-15] MEDS ORDERED: ACETAMINOPHEN 325 MG TABLET ONE (17:24)
[2022-10-15 18:13] VITALS: TEMP 99
[2022-10-15 18:14] VITALS: O2SAT 99
[2022-10-15 18:16] VITALS: BP 134/78
== END 2022-10-15 17:38 | disposition home or self-care (01) ==
LOC: ER 14:48
DX: O03.9 Complete or unspecified spontaneous abortion without complication (principal)
CPT/HCPCS: 36415; 76817; 80048; 81003; 84702; 84703; 85025; 88305; 96360; 99283; J7030

== ENCOUNTER 2023-04-07 03:06 | Emergency (ER) | payer SELFPAY ==
--- OUTSIDE RECORDS SUMMARY | 2023-04-07 03:11 | XMS REPORT | Continuity of Care Document ---
:1980 Author Organization [facility] t Address [address] [place] [address] [address] [place] [address] Care Team Providers Name Role Phone AYLA GARCIA Primary Care Physician Unavailable AYLA GARCIA Attending Clinician Unavailable Doctor Unassigned, [place] Attending Clinician Unavailable Ayla Purdy Attending Clinician [phone] ALEX SANDERS Attending Clinician Unavailable DALJIT MAR Attending Clinician Unavailable Misti Patel Attending Clinician [phone] Room, [facility] Attending Clinician Unavailable Alex Gore MD Attending Clinician Michael Corea MD Attending Clinician Ravi Solis MD Attending Clinician [phone] MICHAEL COREA Attending Clinician Unavailable Corona [...] Formattin ity of 00:00: g of this [place] 00 note Medical might be Branch different from the original. ICD10 Diagnosis Term Calendering Supervisor Utility Encounter Encounter Disease Active Overview: Univers for for 04-20 Formattin ity of routine routine 00:00: g of this [place] gynecologi gynecologi 00 note Me dical billy billy might be Branch examinatio examinatio different n n from the original. ICD10 Diagnosis Term Calendering Supervisor Utility Fatigue Fatigue Disease Active Univers 04-20 ity of 00:00: [place] 00 Medical Branch General General Disease Active Overview: Univ ers counseling counseling 12-22 Formattin ity of and advice and advice 00:00: g of this [place] for for 00 note Medical contracept contracept might be Branch gala gala different management management from the original. ICD10 Diagnosis Term Calendering Supervisor Utility Allergies, Adverse Reactions, Alerts Allergy Allergy Status Severity Reaction(s) Onset Inactive Treating Comm ents Source Name Type Date Date Clinician NO KNOWN Drug Active Univers ALLERGIE Class ity of S [facility] Social History Social Habit Start Date Stop Date Quantity Comments Source Exposure to Not sure [facility] SARS-CoV-2 [facility] (event) [place] Alcohol intake 2022-03-07 2022-03-07 Current [place] of 00:00:00 00:00:00 non-drinker of [facility] alcohol (finding) [place] Tobacco use and 2014-03-25 2014-03-25 Smokeless tobacco Un iversity of exposure 00:00:00 00:00:00 non-user [facility] Sex Assigned At [birth year] Universit y of 00:00:00 00:00:00 [facility] Smoking Status Start Date Stop Date Source Never smoked tobacco [facility] Medications Ordered Filled Start Stop Current Ordering Indication Dosage Frequency Signature Comments Components Source Medication Medication Date Date Medication? Clinician (SIG) Name Name gabapentin 2019-08 Yes [id number] 300mg Take 1 Univers 300 mg 1-12 capsule by ity of capsule 00:00: mouth 3 [place] 00 (three) Medical times Branch daily. gabapentin 2019-08 Yes [id number] 300mg Take 1 Univers 300 mg 1-12 capsule by ity of capsule 00:00: mouth 3 [place] 00 (three) Medical times Branch daily. gabapentin 2019-08 Yes [id number] 300mg Take 1 Univers 300 mg 1-12 capsule by ity of capsule 00:00: mouth 3 [place] 00 (three) Medical times Branch daily. gabapentin 2019-08 Yes [id number] 300mg Take 1 Univers 300 mg 1-12 capsule by ity of capsule 00:00: mouth 3 [place] 00 (three) Medical times Branch daily. gabapentin 2019-08 Yes [id number] 300mg Take 1 Univers 300 mg 1-12 capsule by ity of capsule 00:00: mouth 3 [place] 00 (three) Medical times Branch daily. FENTanyl 2019-08 2020- No 400ug 400 mcg, Uni vers (ACTIQ) 08-29 Buccal, ity of lollipop 20:00: 19:00 ONCE, 1 [place] 400 mcg 00 :00 dose, [facility] 06/29/20 at Branch 1400, Routine sulfamethox 2019-08 2020- No [id number] 1{tbl} Take 1 Univers azole-trime 08-2911 tablet by it y of thoprim 00:00: 05:59 mouth 2 [place] (BACTRIM 00 :00 (two) Medical DS) 800-160 times Branch mg per daily for tablet 7 days. sulfamethox 2019-08 2020- No [id number] 1{tbl} Take 1 Univers azole-trime 08-29 tablet by it y of thoprim 00:00: 05:59 mouth 2 [place] (BACTRIM 00 :00 (two) Medical DS) 800-160 times Branch mg per daily for tablet 7 days. sulfamethox 2019-08 2020- No [id number] 1{tbl} Take 1 Univers azole-trime 08-29-11 tablet by it y of thoprim 00:00: 05:59 mouth 2 [place] (BACTRIM 00 :00 (two) Medical DS) 800-160 times Branch mg per daily for tablet 7 days. HYDROcodone 2019-08 2020- No [id number] 1{tbl} Take 1 U nivers -acetaminop 0-30 11-07 tablet by it y of hen (NORCO) 00:00: 05:59 [place] 5-325 mg 00 :00 every 6 Medical tablet (six) Branch hours as needed for Pain (scale 4-6) for up to 7 days. Indication s: acute pain HYDROcodone 2019-08 2020- No [id number] 1{tbl} Take 1 U nivers [...] Immunizations Ordered Filled Immunization Date Status Comments [facility] e Immunization Name Name [facility] 2015-04-20 Completed [facility] 00:00:00 [facility] TD 2015-04-20 Completed University of 00:00:00 [facility] TD 2015-04-20 Completed [facility] Com[facility] University of 00:00:00 [place] [facility] TDAP 2015-04-20 Completed University of 00:00:00 [place] [facility] TDAP 2015-04-20 Completed University of 00:00:00 [place] [facility] TDAP 2015-04-20 Completed University of 00:00:00 [facility] Branch TDAP 2015-04-20 Completed University of 00:00:00 [facility] TD, NOS 2002-11-13 Completed University of 00:00:00 [place] [facility] TD, NOS 2002-11-13 Completed University of 00:00:00 [place] [facility] TD, NOS 2002-11-13 Completed University of 00:00:00 [place] [facility] Td 2002-11-13 Completed University of 00:00:00 [place] [facility] Td 2002-11-13 Completed University of 00:00:00 [place] [facility] Td 2002-11-13 Completed University of 00:00:00 [place] [facility] Td 2002-11-13 Completed University of 00:00:00 [facility] Td 2002-11-13 Completed University of 00:00:00 [facility] Vital Signs Vital Name Observation Time Observation Value Comments Source Systolic blood 2020-07-08 18:22:00 128 mm[Hg] Univer sity of pressure [facility] Diastolic blood 2020-07-08 18:22:00 84 mm[Hg] Unive rsity of [facility] Heart rate 2020-07-08 18:22:00 70 /min [facility] Body temperature 2020-07-08 18:22:00 37.28 Dora [facility] Respiratory rate 2020-07-08 18:22:00 16 /min [facility] Body weight 2020-07-08 18:22:00 79.47 kg [facility] BMI 2020-07-08 18:22:00 30.07 kg/m2 [facility] Oxygen saturation in 2020-07-08 18:22:00 99 /min [facility] Arterial blood by [facility] Pulse oximetry Branch Systolic blood 2020-07-08 18:22:00 128 mm[Hg] Univer sity of pressure [facility] Diastolic blood 2020-07-08 18:22:00 84 mm[Hg] Unive rsity of pressure [facility] Heart rate 2020-07-08 18:22:00 70 /min Universi ty of [place] [facility] Body temperature 2020-07-08 18:22:00 37.28 Dora Univ ersity of [place] [facility] Respiratory rate 2020-07-08 18:22:00 16 /min Univ ersity of [place] [facility] Body weight 2020-07-08 18:22:00 79.47 kg Universi ty of [place] [facility] BMI 2020-07-08 18:22:00 30.07 kg/m2 Universi ty of [facility] Oxygen saturation in 2020-07-08 18:22:00 99 /min University of Arterial blood by [facility] Pulse oximetry Branch Systolic blood 2020-07-04 15:06:00 136 mm[Hg] Univer sity of pressure [place] [facility] Diastolic blood 2020-07-04 15:06:00 73 mm[Hg] Unive rsity of pressure [place] [facility] Heart rate 2020-07-04 15:06:00 78 /min Universi ty of [facility] Body temperature 2020-07-04 15:06:00 36.33 Dora Univ ersity of [place] [facility] Respiratory rate 2020-07-04 15:06:00 16 /min Univ ersity of [place] [facility] Systolic blood 2020-07-04 15:06:00 136 mm[Hg] Univer sity of pressure [place] [facility] Diastolic blood 2020-07-04 15:06:00 73 mm[Hg] Unive rsity of pressure [place] [facility] Heart rate 2020-07-04 15:06:00 78 /min Universi ty of [place] [facility] [place] Body temperature 2020-07-04 15:06:00 36.33 Dora Univ ersity of [place] [facility] Respiratory rate 2020-07-04 15:06:00 16 /min Univ ersity of [place] [facility] Systolic blood 2020-06-29 18:48:00 194 mm[Hg] Univer sity of pressure [place] [facility] Diastolic blood 2020-06-29 18:48:00 97 mm[Hg] Unive rsity of pressure [place] [facility] Heart rate 2020-06-29 18:48:00 73 /min Universi ty of [place] [facility] Body temperature 2020-06-29 18:48:00 36.94 Dora Univ ersity of [place] [facility] Respiratory rate 2020-06-29 18:48:00 16 /min Univ ersity of [place] [facility] Body weight 2020-06-29 18:48:[address] [facility] BMI 2020-06-29 18:48:00 29.95 kg[facility] Systolic blood 2020-06-29 18:48:00 194 mm[Hg] Univer sity of pressure [facility] Diastolic blood 2020-06-29 18:48:00 97 [facility]Hg[facility] 2020-06-29 18:48:00 73 /min [facility] Body temperature 2020-06-29 18:48:00 36.94 Dora [facility] Respiratory rate 2020-06-29 18:48:00 16 /min [facility] Body weight 2020-06-29 18:48:00 79.153 kg [facility] BMI 2020-06-29 18:48:00 29.95 kg/m2 [facility] Procedures Procedure Date / Time Performing Clinician Source Performed ASSIGNMENT OF BENEFITS 2022-10-24 13:53:07 Doctor Unassigned, No [facility] CONSENT TO PHOTOGRAPH 2020-06-29 06:01:00 Doctor Unassigned, No [facility] REFERRAL OCCUPATIONAL 2020-06-29 00:00:00 Emelyn Jorgensen [facility] Encounters Start End Encounter Admission Attending Care Care Encounter Source Date/Time Date/Time Type Type Clinicians Facility Department ID 2022-10-24 2022-10-24 [id number] Univers 08:00:00 08:00:00 AYLA benton [facility] 2022-10-24 2022-10-24 Orders Doctor BROWN [id number] Univers 00:00:00 00:00:00 Only Unassigned, RUPESH [id number] [place] 4.2.7.2.686 Timothy as [id number] [address] 2022-10-19 2022-10-19 Telephone [place], [facility] [id number] Univers 00:00:00 00:00:00 Ayla Moy DESIGN PAINTER [id number] ity of [facility] 4.2.7.2.686 Timothy as MATERNAL [id number] Med ical & CHILD 107 [facility] 2022-10-09 2022-10-09 Telephone Padmaja [facility] [id number] [facility] 00:00:00 00:00:00 Misti mcadams DESIGN PAINTER [id number] ity of [facility] 4.2.7.2.686 Timothy as MATERNAL [id number] Med ical & CHILD 358 [facility] 2020-07-09 2020-07-09 Ancillary Room, Esthela [id number] 09:42:24 10:42:24 Visit Dolly-Occup Rupesh [id number] Therapy Tub [facility] 4.2.7.2.686 [id number] 2020-07-09 2020-07-09 Ancillary Room, Dolly-Occup Therapy Tub [facility] [id number] [facility] 09:42:24 10:42:24 Visit Alex Gore 350.1.13.10 ity of [facility] 4.2.7.2.686 Timothy as [id number] [address] 2020-07-08 2020-07-08 [facility] Esthela Corea [id number] 12:13:08 23:59:00 Encounter Michael Cheng 350.1.13.10 [facility] 4.2.7.2.686 [id number] [facility] 2020-07-08 2020-07-08 [facility] Michael Corea 1.2.840 .114 [id number] [facility] 12:13:08 23:59:00 Encounter Ravi Solis 350.1 .13.10 ity [facility] 4.2.7.2.686 Timothy as [id number] [address] 2020-07-08 2020-07-08 Outpatient Hortencia COREA [facility] [id number] [facility] 12:30:00 12:30:00 MICHAEL wells [facility] 2020-07-04 2020-07-04 [facility] Esthela Corea [id number] 09:06:00 23:59:00 Encounter Michael Bonds Rupesh 350.1.13.10 Hospital 4.2.7.2.686 [id number] 2020-07-04 2020-07-04 [facility] Esthela Corea [id number] Univers 09:06:00 23:59:00 Encounter Michael Bonds [place] 350.1.13.10 ity of [facility] 4.2.7.2.686 Timothy as [id number] [address] 2020-07-04 2020-07-04 Outpatient R DAVIDE [facility] [id number] Univers 09:00:00 09:00:00 MICHAEL ity [facility] 2020-06-30 2020-06-30 Ancillary Room, Esthela [id number] [id number] 08:06:31 09:06:31 Visit Dolly-Occup [place] 350.1.13.10 Therapy Tub [address]7.2.686 [id number] 2020-06-30 2020-06-30 Ancillary Room, Dolly-Occup Therapy Tub Delia ie 1.2.840.114 [id number] [facility] 08:06:31 09:06:31 Visit Alex Gore 350.1.13.10 ity [place] [id number] Timothy as [id number] [address] 2020-06-29 2020-06-29 Hospital Corona Turner 1.2.840.114 [id number] 12:30:00 23:59:00 Encounter Rupesh 350.1.13.10 [place] [id number] [facility] 2020-06-29 2020-06-29 [facility] Corona Turner 1.2.840.114 [id number] Univers 12:30:00 23:59:00 Encounter Myren Mikaelaserene Bonds [place] 350.1.13.1 0 ity of [facility] 4.2.7.2.686 Timothy as [id number] [address] 2020-06-29 2020-06-29 Outpatient O CORONA TURNER [facility] [id number] Univers 12:30:00 12:30:00 [facility] 2020-06-29 2020-06-29 Outpatient R SHWETA [facility] [id number] Univers 08:00:00 08:00:00 ALEX [facility] 2020-06-25 2020-06-25 Outpatient U CORONA TURNER [facility] [id number] Univers 00:00:00 23:59:00 [facility] Results Test Description Test Time Test Comments Results Result Sour e Comments REFERRAL 2020-06-29 Consult University OCCUPATIONAL 00:00:00 received and [facility] THERAPY chart reviewed Branch via [employer]. ?Please refer to progress notes for details. Rosa Johnson, [id number] pgr.
--- NOTE | 2023-04-07 03:56 | EDPHYS ---
Physician Documentation [facility] Name: Chelsie Scales Age: 43 yrs Sex: Female : 1980 Arrival Date: 04/07/2023 Time: 03:06 Bed 11 Private MD: ED Physician Micah Kennedy HPI: 04/07 03:46 This 43 yrs old Female presents to ER via Ambulatory with complaints of [facility] Toothache, Jaw Pain, Headache. 03:46 The patient presents with pain, redness, swelling. The problem is located in the lower rajendra left second molar and left jaw. Onset: The symptoms/episode began/occurred 2 day(s) ago. Historical: - Allergies: 03:18 No Known Allergies; kl - Home Meds: 03:18 Amoxicillin Oral [Active]; kl - PMHx: 03:18 Vertigo; kl - PSHx: 03:18 section; kl - Immunization history:: Adult Immunizations not up to date. - Social history:: Smoking status: Patient denies any tobacco usage or history of. ROS: 03:48 Constitutional: Negative for fever, chills, and weight loss, Eyes: Negative for injury, rajendra pain, redness, and discharge, Neck: Negative for injury, pain, and swelling, Cardiovascular: Negative for chest pain, palpitations, and edema, Respiratory: Negative for shortness of breath, cough, wheezing, and pleuritic chest pain, Abdomen/GI: Negative for abdominal pain, nausea, vomiting, diarrhea, and constipation, Back: Negative for injury and pain, : Negative for injury, bleeding, discharge, and swelling, MS/Extremity: Negative for injury and deformity, Skin: Negative for injury, rash, and discoloration, Neuro: Negative for headache, weakness, numbness, tingling, and seizure, Psych: Negative for depression, anxiety, suicide ideation, homicidal ideation, and hallucinations, Allergy/Immunology: Negative for hives, rash, and allergies, Endocrine: Negative for neck swelling, polydipsia, polyuria, polyphagia, and marked weight changes, Hematologic/Lymphatic: Negative for swollen nodes, abnormal bleeding, and unusual bruising. 03:48 ENT: Positive for dental pain. Exam: 03:48 Constitutional: This is a well developed, well nourished patient who is awake, alert, rajendra and in no acute distress. Eyes: Pupils equal round and reactive to light, extra-ocular motions intact. Lids and lashes normal. Conjunctiva and sclera are non-icteric and not injected. Cornea within normal limits. Periorbital areas with no swelling, redness, or edema. ENT: Nares patent. No nasal discharge, no septal abnormalities noted. Tympanic membranes are normal and external auditory canals are clear. Oropharynx with no redness, swelling, or masses, exudates, or evidence of obstruction, uvula midline. Mucous membranes moist. Neck: Trachea midline, no thyromegaly or masses palpated, and no cervical lymphadenopathy. Supple, full range of motion without nuchal rigidity, or vertebral point tenderness. No Meningismus. Chest/axilla: Normal chest wall appearance and motion. Nontender with no deformity. No lesions are appreciated. Cardiovascular: Regular rate and rhythm with a normal S1 and S2. No gallops, murmurs, or rubs. Normal PMI, no JVD. No pulse deficits. Respiratory: Lungs have equal breath sounds bilaterally, clear to auscultation and percussion. No rales, rhonchi or wheezes noted. No increased work of breathing, no retractions or nasal flaring. Abdomen/GI: Soft, non-tender, with normal bowel sounds. No distension or tympany. No guarding or rebound. No evidence of tenderness throughout. Back: No spinal tenderness. No costovertebral tenderness. Full range of motion. Skin: Warm, dry with normal turgor. Normal color with no rashes, no lesions, and no evidence of cellulitis. MS/ Extremity: Pulses equal, no cyanosis. Neurovascular intact. Full, normal range of motion. Neuro: Awake and alert, GCS 15, oriented to person, place, time, and situation. Cranial nerves II-XII grossly intact. Motor strength 5/5 in all extremities. Sensory grossly intact. Cerebellar exam normal. Normal gait. 03:48 Head/face: Noted is swelling, tenderness, that is mild, that is moderate, of the lower left second molar. Vital Signs: 03:16 BP 145 / 87; Pulse 88; Resp 18; Temp 97.1(TE); Pulse Ox 99% ; Weight 108.86 kg (R); kl Height 5 ft. 4 in. ; Pain 10/10; 05:36 BP 134 / 85; Pulse 82; Resp 14; Pulse Ox 98% on R/A; kl 03:16 Body Mass Index 41.20 (108.86 kg, 162.56 cm) kl 03:16 Pain Scale: Adult kl MDM: 03:11 Patient medically screened. rajendra 03:49 Differential diagnosis: dental caries, dental abscess. Data reviewed: vital signs, [facility] nurses notes. Consideration of Admission/Observation Escalation of care including admission/observation considered. I considered the following discharge prescriptions or medication management in the emergency department Medications were administered in the Emergency Department. See MAR. Test considered but Not performed: CT: NO CT , NO TRISMUS. Historians other than the Patient: Daughter/Son: DAUGHTER , WELL INFORMED. Care significantly affected by the following chronic conditions: VERTIGO. Counseling: I had a detailed discussion with the patient and/or guardian regarding: the need for outpatient follow up, for definitive care, a dentist. 12 03:45 Order name: Ice pack; Complete Time: 04:39 [facility] Administered Medications: 03:47 CANCELLED (Duplicate Order): Clindamycin IM 600 mg IM once rajendra 03:47 CANCELLED (Duplicate Order): Clindamycin PO 300 mg PO once rajendra 04:25 Drug: Ketorolac IVP 30 mg Route: IVP; Site: right forearm; kl 05:34 Follow up: Response: No adverse reaction; Marked relief of symptoms kl 04:28 Drug: Rocephin IV 1 grams Route: IV; Rate: per protocol; Site: right forearm; kl 04:39 Follow up: IV Status: Completed infusion; IV Intake: 50ml kl 04:30 Drug: HYDROmorphone IM 2 mg Route: IM; Site: right ventrogluteal; kl 05:35 Follow up: Response: No adverse reaction kl 04:38 Drug: Clindamycin IVPB 900 mg Route: IVPB; Infused Over: 30 mins; Site: right forearm; kl 04:40 Drug: Promethazine IM 25 mg Route: IM; Site: right ventrogluteal; kl 05:35 Follow up: Response: No adverse reaction; Marked relief of symptoms kl 05:25 Drug: Clindamycin PO 300 mg Route: PO; kl 05:35 Not Given (Duplicate Order): NS 0.9% IV 1000 ml IV at 125 ml/hr continuous kl 05:35 CANCELLED (Duplicate Order): NS 0.9% IV 1000 ml IV at 1000 ml once kl Disposition Summary: 04/07/23 03:54 Discharge Ordered Location: Home [facility] Problem: new [facility] Symptoms: have improved rajendra Condition: Stable rajendra Diagnosis - Dental root caries rajendra - Dental caries, unspecified [facility] - Dental alveolar anomalies rajendra Followup: rajendra - With: Private Physician - When: 2 - 3 days - Reason: Recheck today's complaints, Continuance of care, Re-evaluation by your physician Followup: rajendra - With: - When: 2 - 3 days - Reason: Recheck today's complaints, Re-evaluation by your physician Discharge Instructions: - Discharge Summary Sheet rajendra - Dental Caries, Adult [facility] - Dental Pain [facility] - Dental Pain, [id number] [facility] - Diet and Dental Disease [facility] Forms: - Medication Reconciliation Form [facility] - Thank You Letter [facility] - Antibiotic Education [facility] - Prescription Opioid Use [facility] - Patient Portal Instructions [facility] - Leadership Thank You Letter [facility] Prescriptions: - acetaminophen-codeine 300-30 mg Oral tablet - take 2 tablet by ORAL route every 6 hours as needed for pain; 24 tablet; [facility] Refills: 0, Product Selection Permitted - Clindamycin HCl 300 mg Oral Capsule - take 1 capsule by ORAL route every 6 hours for 10 days; 40 capsule; Refills: 0, [facility] Product Selection Permitted - Ibuprofen 600 mg Oral Tablet - take 1 tablet by ORAL route every 6 hours As needed take with food; 20 tablet; [facility] Refills: 0, Product Selection Permitted Signatures: Jenny Sneed RN Micah Hogan MD MD [facility] Corrections: (The following items were deleted from the chart) 03:47 03:45 Clindamycin IM 600 mg IM once ordered. [facility] 03:47 03:45 Clindamycin PO 300 mg PO once ordered. [facility] 05:35 05:35 NS 0.9% IV 1000 ml IV at 1000 ml once ordered. dottie
--- NOTE | 2023-04-07 03:56 | ER ---
Nurse's Notes [facility] Name: Chelsie Scales Age: 43 yrs Sex: Female : 1980 Arrival Date: 04/07/2023 Time: 03:06 Bed 11 Private MD: Diagnosis: Dental root caries;Dental caries, unspecified;Dental alveolar anomalies Presentation: 04/07 03:16 Chief complaint: Patient states: left jaw pain seen by PCP 04/06 Given injection and RX kl for amoxicillin has taken 1 dose reports no improvement with pain Ibuprofen taken [employer]. Coronavirus screen: Vaccine status: Patient reports receiving the 2nd dose of the covid vaccine. Ebola Screen: Patient negative for fever greater than or equal to 101.5 degrees Fahrenheit, and additional compatible Ebola Virus Disease symptoms. Initial Sepsis Screen: Does the patient meet any 2 criteria? No. Patient's initial sepsis screen is negative. Does the patient have a suspected source of infection? No. Patient's initial sepsis screen is negative. Risk Assessment: Do you want to hurt yourself or someone else? Patient reports no desire to harm self or others. 03:16 Method Of Arrival: Ambulatory kl 03:16 Acuity: KRUPA 4 kl Triage Assessment: 03:19 General: Appears uncomfortable, Behavior is cooperative, quiet. Pain: Complains of pain kl in left jaw Pain currently is 10 out of 10 on a pain scale. EENT:. EENT: Reports pain. Neuro: No deficits noted. Cardiovascular: No deficits noted. Respiratory: No deficits noted. Airway is patent Trachea midline Respiratory effort is even, unlabored, Respiratory pattern is regular, symmetrical. GI: No deficits noted. : No deficits noted. No signs and/or symptoms were reported regarding the genitourinary system. Derm: No deficits noted. Historical: - Allergies: 03:18 No Known Allergies; kl - Home Meds: 03:18 Amoxicillin Oral [Active]; kl - PMHx: 03:18 Vertigo; kl - PSHx: 03:18 section; kl - Immunization history:: Adult Immunizations not up to date. - Social history:: Smoking status: Patient denies any tobacco usage or history of. Screenin:20 [facility] ED Fall Risk Assessment (Adult) History of falling in the last 3 months, kl including since admission No falls in past 3 months (0 pts) Confusion or Disorientation No (0 pts) Intoxicated or Sedated No (0 pts) Impaired Gait No (0 pts) Mobility Assist Device Used No (0 pt) Altered Elimination No (0 pt) Score/Fall Risk Level 0 - 2 = Low Risk Oriented to surroundings, Maintained a safe environment. Abuse screen: Denies threats or abuse. Nutritional screening: No deficits noted. Tuberculosis screening: No symptoms or risk factors identified. Assessment: 03:20 Reassessment: see triage. Vital Signs: 03:16 BP 145 / 87; Pulse 88; Resp 18; Temp 97.1(TE); Pulse Ox 99% ; Weight 108.86 kg (R); Height 5 ft. 4 in. ; Pain 10/10; 05:36 BP 134 / 85; Pulse 82; Resp 14; Pulse Ox 98% on R/A; kl 03:16 Body Mass Index 41.20 (108.86 kg, 162.56 cm) 03:16 Pain Scale: Adult ED Course: 03:08 Patient arrived in ED. [email or web address] 03:11 Micah Kennedy MD is Attending Physician. [facility] 03:18 Triage completed. kl 03:21 Patient has correct armband on for positive identification. Provided Education on:. kl 03:21 Bed in low position. Call light in reach. kl 03:21 No provider procedures requiring assistance completed. kl 03:54 [address] Gómez DDS is Referral Physician. rajendra 04:20 Inserted saline lock: 22 gauge in right forearm, using aseptic technique. kl 05:36 IV discontinued, intact, bleeding controlled, No redness/swelling at site. Administered Medications: 03:47 CANCELLED (Duplicate Order): Clindamycin IM 600 mg IM once rajendra 03:47 CANCELLED (Duplicate Order): Clindamycin PO 300 mg PO once rajendra 04:25 Drug: Ketorolac IVP 30 mg Route: IVP; Site: right forearm; kl 05:34 Follow up: Response: No adverse reaction; Marked relief of symptoms kl 04:28 Drug: Rocephin IV 1 grams Route: IV; Rate: per protocol; Site: right forearm; kl 04:39 Follow up: IV Status: Completed infusion; IV Intake: 50ml kl 04:30 Drug: HYDROmorphone IM 2 mg Route: IM; Site: right ventrogluteal; kl 05:35 Follow up: Response: No adverse reaction kl 04:38 Drug: Clindamycin IVPB 900 mg Route: IVPB; Infused Over: 30 mins; Site: right forearm; kl 04:40 Drug: Promethazine IM 25 mg Route: IM; Site: right ventrogluteal; kl 05:35 Follow up: Response: No adverse reaction; Marked relief of symptoms kl 05:25 Drug: Clindamycin PO 300 mg Route: PO; kl 05:35 Not Given (Duplicate Order): NS 0.9% IV 1000 ml IV at 125 ml/hr continuous kl 05:35 CANCELLED (Duplicate Order): NS 0.9% IV 1000 ml IV at 1000 ml once kl Medication: 03:20 VIS not applicable for this client. kl Intake: 04:39 IV: 50ml; Total: 50ml. kl Outcome: 03:54 Discharge ordered by . rajendra 05:36 Discharged to home ambulatory. kl 05:36 Condition: stable 05:36 Discharge instructions given to patient, Instructed on discharge instructions, follow up and referral plans. medication usage, Demonstrated understanding of instructions, follow-up care, medications, Prescriptions given X 2. 05:36 Patient left the ED. kl Signatures: Jenny Sneed, Micah Hogan RN, MD MD cha Jeffries, Jennifer [email or web address]
[2023-04-07] MEDS ORDERED: PROMETHAZINE INJ 25 MG/ML AMP ONE (04:27)
[2023-04-07] MEDS ORDERED: KETOROLAC 30 MG/ML INJ ONE (04:28)
[2023-04-07] MEDS ORDERED: HYDROMORPHONE HCL 2 MG/ML inj ONE (04:28)
[2023-04-07] MEDS ORDERED: CEFTRIAXONE 1000 MG/VIAL ONE (04:28)
[2023-04-07] MEDS ORDERED: NA CHLORIDE 0.9% 250 ML ONE (04:28)
[2023-04-07] MEDS ORDERED: CLINDAMYCIN 900MG/D5W 900 MG/50 ML IVPB IV ONE (04:29)
[2023-04-07] MEDS ORDERED: NA CHLORIDE 0.9% 50 ML ONE (04:29)
[2023-04-07 05:40] VITALS: TEMP 97.1
[2023-04-07 05:42] VITALS: BP 134/85; O2SAT 98
== END 2023-04-07 05:36 | disposition home or self-care (01) ==
LOC: ER 03:06
DX: K02.7 Dental root caries (principal); M26.70 Unspecified alveolar anomaly
CPT/HCPCS: 96372; 96374; 96375; 99284; J0696; J1170; J2550; J7050

== ENCOUNTER 2023-08-01 21:27 | Emergency (ER) | payer SELFPAY ==
--- OUTSIDE RECORDS SUMMARY | 2023-08-01 21:30 | XMS REPORT | Continuity of Care Document ---
Author Name Unknown Address [address] [facility] [place] [address] [facility] Address [address] [facility] [place] [address] Care Team Providers Care Recreation Adviser Name Role Phone AYLA SIMON Primary Care Physician Unav ailable AYLA SIMON Attending Clinician Unavail able Doctor Unassigned, Joshua Attending Clinician U navailable Akinnoemi WHAyla TAYLOR Attending Clinician + ALEX SANDERS Attending Clinician Unavailable DALJIT MAR Attending Clinician Unavailable Misti Patel Attending Clinician + [facility] Attending Clinician Unavailable Alex Gore MD Attending Clinician [phone] Michael Corea MD Attending Clinician [phone] Ravi Solis MD Attending Clinician [phone] MICHAEL COREA Attending Clinician UnavailCorona Colunga MD Attending Clinician [phone] CORONA TURNER Attending Clinician Unavailable ALEX GORE Attending Clinician Unavailable NASIR LYNN Admitting Clinician Unavailable Payers Payer Name Policy Type Policy Number Effective Date Expirati on Date Source Problems Condition Name Condition Details Condition Category Status Onset Date Resolution Date Last Treatment Date Treating Clinician Comments Source Need for Tdap vaccinatio n Need for Tdap vaccinatio n Disease Active 04-20 00:00: 00 [facility] Overweight Overweight Disease Active 04-20 00:00: 00 Overview: Formattin g of this note might be different from the original. ICD10 Diagnosis Term [employer] [facility] Encounter for routine gynecologi billy examinatio n Encounter for routine gynecologi billy examinatio n Disease Active 04-20 00:00: 00 Overview: Formattin g of this note might be different from the original. ICD10 Diagnosis Term [employer] [facility] Fatigue Fatigue Disease Active 04-20 00:00: 00 [facility] General counseling and advice for contracept gala management General counseling and advice for contracept gala management Disease Active 12-22 00:00: 00 Overview: Formattin g of this note might be different from the original. ICD10 Diagnosis Term [employer] [facility] Allergies, Adverse Reactions, Alerts Allergy Name Allergy Type Status Severity Reaction(s) Onset Date Inactive Date Treating Clinician Comments Source NO KNOWN ALLERGIE S Drug Class Active [facility] Social History Social Habit Start Date Stop Date Quantity Comments Source Exposure to SARS-CoV-2 (event) Not sure [facility] Alcohol intake 2022-03-07 00:00:00 2022-03-07 00:00:00 Current non-drinker of alcohol (finding) [facility] Tobacco use and exposure 2014-03-25 00:00:00 2014-03-25 00:00:00 Smokeless tobacco non-user [facility] Sex Assigned At 1980 00:00:00 1980 00:00:00 [facility] Smoking Status Start Date Stop Date Source Never smoked tobacco [facility] Medications Ordered Medication Name Filled Medication Name Start Date Stop Date Current Medication? Ordering Clinician Indication Dosage Frequency Signature (SIG) Comments Components Source gabapentin 300 mg capsule 2019-08 00:00: 00 Yes [id number] 300mg Take 1 capsule by mouth 3 (three) times daily. [facility] gabapentin 300 mg capsule 2019-08 00:00: 00 Yes [id number] 300mg Take 1 capsule by mouth 3 (three) times daily. [facility] gabapentin 300 mg capsule 2019-08 00:00: 00 Yes [id number] 300mg Take 1 capsule by mouth 3 (three) times daily. [facility] gabapentin 300 mg capsule 2019-08 00:00: 00 Yes [id number] 300mg Take 1 capsule by mouth 3 (three) times daily. [facility] gabapentin 300 mg capsule 2019-08 00:00: 00 Yes [id number] 300mg Take 1 capsule by mouth 3 (three) times daily. [facility] FENTanyl (ACTIQ) lollipop 400 mcg 2019-08 20:00: 00 06-29 19:00 :00 No 400ug 400 mcg, Buccal, ONCE, 1 dose, Sun06/29/20 at 1400, Routine [facility] sulfamethox azole-trime thoprim (BACTRIM DS) 800-160 mg per tablet 2019-08 00:00: 07-07 05:59 :00 No [id number] 1{tbl} Take 1 tablet by mouth 2 (two) times daily for 7 days. [facility] sulfamethox azole-trime thoprim (BACTRIM DS) 800-160 mg per tablet 2019-08 00:00: 07-07 05:59 :00 No [id number] 1{tbl} Take 1 tablet by mouth 2 (two) times daily for 7 days. [facility] sulfamethox azole-trime thoprim (BACTRIM DS) 800-160 mg per tablet 2019-08 00:00: 00 07-07 05:59 :00 No [id number] 1{tbl} Take 1 tablet by mouth 2 (two) times daily for 7 days. [facility] HYDROcodone -acetaminop hen (NORCO) 5-325 mg tablet 2019-08 0-30 00:00: 00 07-03 05:59 :00 No [id number] 1{tbl} Take 1 tablet by mouth every 6 (six) hours as needed for Pain (scale 4-6) for up to 7 days. Indication s: acute pain [facility] HYDROcodone -acetaminop hen (NORCO) 5-325 mg tablet 2019-08 0-30 00:00: 00 07-03 05:59 :00 No [id number] 1{tbl} Take 1 tablet by mouth every 6 (six) hours as needed for Pain (scale 4-6) for up to 7 days. Indication s: acute pain [facility] meclizine 25 mg tablet 2017-08 00:00: 00 Yes 25mg Take 1 tablet by mouth every 6 (six) hours as needed for Dizziness. [facility] ondansetron (ZOFRAN) 8 mg tablet 2017-08 00:00: 00 Yes 8mg Take 1 tablet by mouth every 8 (eight) hours as needed for Nausea and Vomiting (N/V). [facility] meclizine 25 mg tablet 2017-08 00:00: 00 Yes 25mg Take 1 tablet by mouth every 6 (six) hours as needed for Dizziness. [facility] ondansetron (ZOFRAN) 8 mg tablet 2017-08 00:00: 00 Yes 8mg Take 1 tablet by mouth every 8 (eight) hours as needed for Nausea and Vomiting (N/V). [facility] meclizine 25 mg tablet 2017-08 00:00: 00 Yes 25mg Take 1 tablet by mouth every 6 (six) hours as needed for Dizziness. [facility] ondansetron (ZOFRAN) 8 mg tablet 2017-08 00:00: 00 Yes 8mg Take 1 tablet by mouth every 8 (eight) hours as needed for Nausea and Vomiting (N/V). [facility] meclizine 25 mg tablet 2017-08 00:00: 00 Yes 25mg Take 1 tablet by mouth every 6 (six) hours as needed for Dizziness. [facility] ondansetron (ZOFRAN) 8 mg tablet 2017-08 00:00: 00 Yes 8mg Take 1 tablet by mouth every 8 (eight) hours as needed for Nausea and Vomiting (N/V). [facility] meclizine 25 mg tablet 2017-08 00:00: 00 Yes 25mg Take 1 tablet by mouth every 6 (six) hours as needed for Dizziness. [facility] ondansetron (ZOFRAN) 8 mg tablet 2017-08 00:00: 00 Yes 8mg Take 1 tablet by mouth every 8 (eight) hours as needed for Nausea and Vomiting (N/V). [facility] meclizine 25 mg tablet 2017-08 00:00: 00 Yes 25mg Take 1 tablet by mouth every 6 (six) hours as needed for Dizziness. [facility] ondansetron (ZOFRAN) 8 mg tablet 2017-08 00:00: 00 Yes 8mg Take 1 tablet by mouth every 8 (eight) hours as needed for Nausea and Vomiting (N/V). [facility] meclizine 25 mg tablet 2017-08 00:00: 00 Yes 25mg Take 1 tablet by mouth every 6 (six) hours as needed for Dizziness. [facility] ondansetron (ZOFRAN) 8 mg tablet 2017-08 00:00: 00 Yes 8mg Take 1 tablet by mouth every 8 (eight) hours as needed for Nausea and Vomiting (N/V). [facility] meclizine 25 mg tablet 2017-08 00:00: 00 Yes 25mg Take 1 tablet by mouth every 6 (six) hours as needed for Dizziness. [facility] ondansetron (ZOFRAN) 8 mg tablet 2017-08 00:00: 00 Yes 8mg Take 1 tablet by mouth every 8 (eight) hours as needed for Nausea and Vomiting (N/V). [facility] Vital Signs Vital Name Observation Time Observation Value Comments Skylar hong Systolic blood pressure 2020-07-08 18:22:00 128 mm[Hg] [facility] Diastolic blood pressure 2020-07-08 18:22:00 84 mm[Hg] [facility] Heart rate 2020-07-08 18:22:00 70 /min [facility] Body temperature 2020-07-08 18:22:00 37.28 Dora [facility] Respiratory rate 2020-07-08 18:22:00 16 /min [facility] Body weight 2020-07-08 18:22:00 79.47 kg [facility] BMI 2020-07-08 18:22:00 30.07 kg/m2 [facility] Oxygen saturation in Arterial blood by Pulse oximetry 2020-07-08 18:22:00 99 /min [facility] Systolic blood pressure 2020-07-08 18:22:00 128 mm[Hg] [facility] Diastolic blood pressure 2020-07-08 18:22:00 84 mm[Hg] [facility] Heart rate 2020-07-08 18:22:00 70 /min [facility] Body temperature 2020-07-08 18:22:00 37.28 Dora [facility] Respiratory rate 2020-07-08 18:22:00 16 /min [facility] Body weight 2020-07-08 18:22:00 79.47 kg [facility] BMI 2020-07-08 18:22:00 30.07 kg/m2 [facility] Oxygen saturation in Arterial blood by Pulse oximetry 2020-07-08 18:22:00 99 /min [facility] Systolic blood pressure 2020-07-04 15:06:00 136 mm[Hg] [facility] Diastolic blood pressure 2020-07-04 15:06:00 73 mm[Hg] [facility] Heart rate 2020-07-04 15:06:00 78 /min [facility] Body temperature 2020-07-04 15:06:00 36.33 Dora [facility] Respiratory rate 2020-07-04 15:06:00 16 /min [facility] Systolic blood pressure 2020-07-04 15:06:00 136 mm[Hg] [facility] Diastolic blood pressure 2020-07-04 15:06:00 73 mm[Hg] [facility] Heart rate 2020-07-04 15:06:00 78 /min [facility] Body temperature 2020-07-04 15:06:00 36.33 Dora [facility] Respiratory rate 2020-07-04 15:06:00 16 /min [facility] Systolic blood pressure 2020-06-29 18:48:00 194 mm[Hg] [facility] Diastolic blood pressure 2020-06-29 18:48:00 97 mm[Hg] [facility] Heart rate 2020-06-29 18:48:00 73 /min [facility] Body temperature 2020-06-29 18:48:00 36.94 Dora [facility] Respiratory rate 2020-06-29 18:48:00 16 /min [facility] Body weight 2020-06-29 18:48:00 79.153 kg [facility] BMI 2020-06-29 18:48:00 29.95 kg/m2 [facility] Systolic blood pressure 2020-06-29 18:48:00 194 mm[Hg] [facility] Diastolic blood pressure 2020-06-29 18:48:00 97 mm[Hg] [facility] Heart rate 2020-06-29 18:48:00 73 /min [facility] Body temperature 2020-06-29 18:48:00 36.94 Dora [facility] Respiratory rate 2020-06-29 18:48:00 16 /min [facility] Body weight 2020-06-29 18:48:00 79.153 kg [facility] BMI 2020-06-29 18:48:00 29.95 kg/m2 [facility] Procedures Procedure Date / Time Performed Performing Clinician Source ASSIGNMENT OF BENEFITS 2022-10-24 13:53:07 Docto r Unassigned, Joshua [facility] CONSENT TO PHOTOGRAPH 2020-06-29 06:01:00 Doctor Unassigned, Joshua [facility] REFERRAL OCCUPATIONAL THERAPY 2020-06-29 00:00:00 Emelyn Jorgensen [facility] Encounters Start Date/Time End Date/Time Encounter Type Admission Type Attending Clinicians Care Facility Care Department Encounter ID Source 2022-10-24 08:00:00 2022-10-24 08:00:00 Outpatient R AYLA SIMON [facility] [id number] [facility] 2022-10-24 00:00:00 2022-10-24 00:00:00 Orders Only Doctor Unassigned, Joshua [facility] [id number] 350.1.13.10 4.2.7.2.686 [id number] [facility] 2022-10-19 00:00:00 2022-10-19 00:00:00 Telephone Ayla Simon [facility] [employer] [facility]CH[facility]ECT [facility] [id number] 350.1.13.10 4.2.7.2.686 [id number] [facility] 2022-10-09 00:00:00 2022-10-09 00:00:00 Telephone Misti Chilel [facility] [employer] [facility]CH[facility] [id number] 350.1.13.10 4.2.7.2.686 [id number] [facility] 2020-07-09 09:42:24 2020-07-09 10:42:24 Ancillary Visit Room, Dolly-Occup Therapy Tub [facility] [id number] 350.1.13.10 4.2.7.2.686 [id number] 2020-07-09 09:42:24 2020-07-09 10:42:24 Ancillary Visit Room, Dolly-Occup Therapy Tub Alex Gore [facility] [id number] 350.1.13.10 4.2.7.2.686 [id number] [facility] 2020-07-08 12:13:08 2020-07-08 23:59:00 Hospital Encounter Michael Corea [facility] [id number] 350.1.13.10 4.2.7.2.686 [id number] 2020-07-08 12:13:08 2020-07-08 23:59:00 Hospital Encounter LisandrojayleenMichael Carlos Javier [facility] [id number] 350.1.13.10 4.2.7.2.686 [id number] [facility] 2020-07-08 12:30:00 2020-07-08 12:30:00 [id number] 2020-07-04 09:06:00 2020-07-04 23:59:00 Hospital Encounter [facility] [place] 1.2.840.114 350.1.13.10 4.2.7.2.686 [id number] 2020-07-04 09:06:00 2020-07-04 23:59:00 Hospital Encounter [facility] [id number] 350.1.13.10 4.2.7.2.686 [id number] [facility] 2020-07-04 09:00:00 2020-07-04 09:00:00 [facility] [id number] 2020-06-30 08:06:31 2020-06-30 09:06:31 Ancillary Visit Room, Dolly-Occup Therapy Tub [facility] 1.2.840.114 350.1.13.10 4.2.7.2.686 [id number] 2020-06-30 08:06:31 2020-06-30 09:06:31 Ancillary Visit Room, Dolly-Occup Therapy Tub Alex Gore [facility] [id number] 350.1.13.10 4.2.7.2.686 [id number] [facility] 2020-06-29 12:30:00 2020-06-29 23:59:00 Hospital Encounter Corona Turner [facility] 1.2.840.114 350.1.13.10 4.2.7.2.686 [id number] 2020-06-29 12:30:00 2020-06-29 23:59:00 Hospital Encounter Corona Turner Ludwik K [facility] 1.2.840.114 350.1.13.10 4.2.7.2.686 [id number] [facility] 2020-06-29 12:30:00 2020-06-29 12:30:00 Outpatient O CORONA TURNER [facility] [id number] [facility] 2020-06-29 08:00:00 2020-06-29 08:00:00 Outpatient ALEX ALBRIGHT [facility] [id number] [facility] 2020-06-25 00:00:00 2020-06-25 23:59:00 Outpatient U CORONA TURNER [facility] [id number] [facility] Results Test Description Test Time Test Comments Results Resul t Comments Source REFERRAL OCCUPATIONAL THERAPY 2020-06-29 00:00:00 Consult received and chart reviewed via [employer]. ?Please refer to progress notes for details. Rosa Johnson, [id number] [facility]. [facility]
[2023-08-01] MEDS ORDERED: KETOROLAC 30 MG/ML INJ ONE (22:49)
[2023-08-01] MEDS ORDERED: NA CHLORIDE 0.9% 1,000 ML ONE (22:49)
[2023-08-01] MEDS ORDERED: ACETAMINOPHEN 500 MG TAB ONE (22:49)
[2023-08-01] MEDS ORDERED: DIPHENHYDRAMINE 50 MG/ML VIAL ONE (22:49)
[2023-08-01] MEDS ORDERED: METOCLOPRAMIDE 10 MG/2mL INJ ONE (22:49)
[2023-08-01] MEDS ORDERED: CYCLOBENZAPRINE 10 MG TAB ONE (22:49)
[2023-08-01 23:54] LABS: Urine Bacteria None Seen /HPF (<20); Urine Bilirubin NEGATIVE (Negative); Urine Blood 2+ (Negative); Urine Clarity Clear (Clear); Urine Color Colorless (Yellow); Urine Glucose NEGATIVE (Negative); Urine Mucus Slight /HPF (None Seen); Urine Protein NEGATIVE (Negative); Urine RBC <5 /HPF (None Seen); Urine Urobilinogen Normal (Normal); Urine pH 5.5 (5.0-7.0)
[2023-08-01 23:57] LABS: Potassium 3.6 mEq/L (3.5-5.1)
[2023-08-02 01:23] LABS: SARS-COV-2 RT PCR NEGATIVE (NEGATIVE)
--- NOTE | 2023-08-02 02:00 | ER ---
Nurse's Notes [facility] Name: Chelsie Scales Age: 43 yrs Sex: Female : 1980 Arrival Date: 08/01/2023 Time: 21:27 Bed 15 Private MD: Diagnosis: Other specified viral diseases;Influenza A, acute viral illness, fever, headache, Presentation: 08/01 21:49 Chief complaint: Patient's son or daughter states: She started feeling sick yesterday vc1 but today is worse. Headache, nausea, vomiting, fever, blood in urine, urinary frequency and lower abdominal pain on the left side. Coronavirus screen: Vaccine status: Patient reports receiving the 1st dose of the Covid vaccine. Client denies travel out of the [place] in the last 14 days. cough unrelated to allergies, fever, muscle pain, nausea, vomiting. Client presents with at least one sign or symptom that may indicate coronavirus-19. Ebola Screen: Patient negative for fever greater than or equal to 101.5 degrees Fahrenheit, and additional compatible Ebola Virus Disease symptoms Patient denies exposure to infectious person. Patient denies travel to an Ebola-affected area in the 21 days before illness onset. No symptoms or risks identified at this time. Initial Sepsis Screen: Does the patient meet any 2 criteria? HR > 90 bpm. No. Patient's initial sepsis screen is negative. Does the patient have a suspected source of infection? Yes: Acute abdominal pain. Risk Assessment: Do you want to hurt yourself or someone else? Patient reports no desire to harm self or others. Onset of symptoms was July 31, 2023. 21:49 Method Of Arrival: Ambulatory vc1 21:49 Acuity: KRUPA 3 vc1 21:52 Note ears ringing. Care prior to arrival: Medication(s) given: Motrin, 2044 Tylenol, vc1 1844 theraflu. Triage Assessment: 21:53 Headache History: The patient has had previous headaches and this one is less severe vc1 than previous episodes. General: Appears in no apparent distress. uncomfortable, ill, Behavior is calm, cooperative, appropriate for age. Pain: Complains of pain in forehead, left rastafarian and left lower quadrant Pain does not radiate. Pain currently is 2 out of 10 on a pain scale. at worst was 8 out of 10 on a pain scale. Pain began suddenly, 1 day ago. Also complains of nausea. EENT: No deficits noted. No signs and/or symptoms were reported regarding the EENT system. Neuro: Level of Consciousness is awake, alert, obeys commands, Oriented to person, place, time, situation, Appropriate for age Reports headache in left parietal area, frontal area. Cardiovascular: No deficits noted. Respiratory: Reports cough that is Airway is patent Respiratory effort is even, unlabored, Respiratory pattern is regular, symmetrical, the patient has mild shortness of breath. GI: Reports nausea, vomiting, Patient currently denies diarrhea. : Reports pain in left lower quadrant(s) urinary frequency, blood in urine. Derm: No deficits noted. No signs and/or symptoms reported regarding the dermatologic system. Musculoskeletal: No deficits noted. No signs and/or symptoms reported regarding the musculoskeletal system. PET RESORT CONCIERGE: 21:55 LMP 07/16/2023, unknown vc1 Historical: - Allergies: 21:52 No Known Allergies; vc1 - PMHx: 21:52 Vertigo; vc1 - PSHx: 21:52 section; vc1 - Immunization history:: Client reports receiving the 1st dose of the Covid vaccine, moderna Flu vaccine is not up to date. - Social history:: Smoking status: Patient denies any tobacco usage or history of. - Family history:: not pertinent. Screenin:07 [facility] ED Fall Risk Assessment (Adult) History of falling in the last 3 months, vc1 including since admission No falls in past 3 months (0 pts) Confusion or Disorientation No (0 pts) Intoxicated or Sedated No (0 pts) Impaired Gait No (0 pts) Mobility Assist Device Used No (0 pt) Altered Elimination No (0 pt) Score/Fall Risk Level 0 - 2 = Low Risk Oriented to surroundings, Maintained a safe environment, Educated pt \T\ family on fall prevention, incl call for assistance when getting out of bed. Abuse screen: Denies threats or abuse. Nutritional screening: No deficits noted. Tuberculosis screening: No symptoms or risk factors identified. Assessment: 23:10 General: Appears in no apparent distress. uncomfortable, Behavior is calm, cooperative. lg3 Pain: Complains of pain in abdomen and face and forehead. Neuro: No deficits noted. Garcia Agitation-Sedation Scale (RASS): 0 - Alert and Calm Level of Consciousness is awake, alert, obeys commands, Oriented to person, place, time, situation. Cardiovascular: No deficits noted. Denies chest pain, Capillary refill < 3 seconds Clubbing of nail beds is absent JVD is absent Patient's skin is warm and dry. Respiratory: No deficits noted. Airway is patent Respiratory effort is even, unlabored, Respiratory pattern is regular, symmetrical, Parent/caregiver reports the patient having cough that is. GI: No deficits noted. Abdomen is round non-distended, obese, Reports lower abdominal pain, nausea, vomiting. : No deficits noted. Urine is clear. EENT: No deficits noted. Reports nasal congestion nasal discharge. Derm: No deficits noted. No signs and/or symptoms reported regarding the dermatologic system. Skin is intact, is healthy with good turgor, Skin is dry, Skin is normal, Skin temperature is warm. Musculoskeletal: No deficits noted. Circulation, motion, and sensation intact. Range of motion: intact in all extremities. 08/02 00:12 Reassessment: Patient appears in no apparent distress at this time. No changes from lg3 previously documented assessment. Patient and/or family updated on plan of care and expected duration. Pain level reassessed. Patient is alert, oriented x 3, equal unlabored respirations, skin warm/dry/pink. Patient states feeling better. Patient states symptoms have improved. 02:15 Reassessment: Patient appears in no apparent distress at this time. No changes from lg3 previously documented assessment. Patient and/or family updated on plan of care and expected duration. Pain level reassessed. Patient is alert, oriented x 3, equal unlabored respirations, skin warm/dry/pink. Patient states feeling better. Patient states symptoms have improved. Vital Signs: 08/01 21:49 BP 142 / 91; Pulse 109; Resp 18; Temp 100.6(O); Pulse Ox 98% ; Weight 81.65 kg; Height vc1 5 ft. 4 in. ; Pain 2/10; 23:10 BP 139 / 86; Pulse 101; Resp 17 S; Pulse Ox 99% on R/A; lg3 08/02 02:16 BP 141 / 88; Pulse 97; Resp 17 S; Temp 98.9(O); Pulse Ox 100% on R/A; lg3 08/01 21:49 Body Mass Index 30.90 (81.65 kg, 162.56 cm) vc1 12 21:49 Pain Scale: Adult vc1 Maggie Coma Score: 01:53 Eye Response: spontaneous(4). Motor Response: obeys commands(6). Verbal Response: sp4 oriented(5). Total: 15. ED Course: 08/01 21:31 Patient arrived in ED. jj6 21:40 Jarrett Coy MD is Attending Physician. sp4 21:52 Triage completed. vc1 21:52 Arm band placed on right wrist. vc1 21:52 Patient has correct armband on for positive identification. lg3 22:58 BMP Sent. lg3 22:58 UAM Sent. lg3 22:59 COVID-19 SARS RT PCR Sent. lg3 22:59 COVID-19/FLU A+B Sent. lg3 22:59 Inserted saline lock: 22 gauge in left upper arm, using aseptic technique. Blood lg3 collected. 23:09 Lizeth Merritt RN is Primary Nurse. lg3 23:10 Client placed on continuous cardiac and pulse oximetry monitoring. NIBP monitoring lg3 applied. Door closed. Noise minimized. Family accompanied patient. 12 02:17 No provider procedures requiring assistance completed. IV discontinued, intact, lg3 bleeding controlled, No redness/swelling at site. Pressure dressing applied. Administered Medications: 08/01 22:58 CANCELLED (Physician Discretion): [id number] mg PO once lg3 23:12 Drug: Cyclobenzaprine PO 10 mg PO once Route: PO; lg3 08/02 02:16 Follow up: Response: No adverse reaction; Marked relief of symptoms lg3 08/01 23:12 Drug: NS 0.9% IV 1000 ml IV at 1 bolus Per protocol; 1000 mL bolus Route: IV; Rate: 1 lg3 bolus; Site: left upper arm; 08/02 02:16 Follow up: IV Status: Completed infusion; IV Intake: 1000ml lg3 08/01 23:13 Drug: Ketorolac IVP 30 mg IVP once Route: IVP; Site: left upper arm; lg3 08/02 02:16 Follow up: Response: No adverse reaction; Marked relief of symptoms lg3 08/01 23:13 Drug: metoCLOPramide IVP 10 mg IVP once; over 1 to 2 minutes Route: IVP; Site: left lg3 upper arm; 08/02 02:16 Follow up: Response: No adverse reaction; Marked relief of symptoms lg3 08/01 23:13 Drug: diphenhydrAMINE IVP 25 mg IVP once Route: IVP; Site: left upper arm; lg3 08/02 02:16 Follow up: Response: No adverse reaction; Marked relief of symptoms lg3 00:26 CANCELLED (Physician Discretion): diazepam5 mg IVP once lg3 00:26 Not Given (Physician Discretion): ondansetron 4 mg IVP once; over 2 minutes lg3 Medication: 08/01 22:08 VIS not applicable for this client. vc1 Intake: 08/02 02:16 IV: 1000ml; Total: 1000ml. lg3 Outcome: 01:59 Discharge ordered by . sp4 02:17 Discharged to home ambulatory, with family, lg3 02:17 Condition: stable 02:17 Discharge instructions given to patient, Instructed on discharge instructions, follow up and referral plans. medication usage, Demonstrated understanding of instructions, follow-up care, medications, Prescriptions given X 4, 02:18 Patient left the ED. lg3 Signatures: Lizeth Merritt, RN RN lg3 Arlene Thornton jj6 Chuyita Dove RN RN vc1 Jarrett Coy MD MD sp4 Corrections: (The following items were deleted from the chart) 00:45 12 22:58 Influenza Screen (A \T\ B)+BA.LAB.BRZ drawn and sent. lg3 EDMS
--- NOTE | 2023-08-02 02:00 | EDPHYS ---
Physician Documentation [facility] Name: Chelsie Scales Age: 43 yrs Sex: Female : 1980 Arrival Date: 08/01/2023 Time: 21:27 Bed 15 Private MD: ED Physician Jarrett Coy HPI: 08/01 21:40 This 43 yrs old Female presents to ER via Unassigned with complaints of sp4 Headache, Nausea/Vomiting. 08/02 01:03 43-year-old female presents with acute onset headache,, nausea vomiting. . 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 - Social history:: Smoking status: Patient denies any tobacco usage or history of. - Family history:: not pertinent. ROS: 08/02 01:03 Constitutional: Positive fever, positive chills, positive body aches, positive nausea, sp4 positive vomiting, positive head All other systems are negative, Exam: 01:03 Constitutional: This is a well developed, well nourished patient who is awake, alert, sp4 and in no acute distress. Head/Face: Normocephalic, atraumatic. Eyes: Pupils equal round and reactive to light, extra-ocular motions intact. Lids and lashes normal. Conjunctiva and sclera are not injected. Cornea within normal limits. Periorbital areas with no swelling, redness, or edema. ENT: Nares patent. No nasal discharge, no septal abnormalities noted. Tympanic membranes are normal and external auditory canals are clear. Oropharynx with no redness, swelling, or masses, exudates, or evidence of obstruction, uvula midline. Mucous membranes moist. Neck: Trachea midline, no thyromegaly or masses palpated, and no cervical lymphadenopathy. Supple, full range of motion without nuchal rigidity, or vertebral point tenderness. Chest/axilla: Normal chest wall appearance and motion. Nontender with no deformity. No lesions are appreciated. Cardiovascular: Regular rate and rhythm with a normal S1 and S2. No gallops, murmurs, or rubs. Normal PMI, no JVD. No pulse deficits. Respiratory: Lungs have equal breath sounds bilaterally, clear to auscultation and percussion. No rales, rhonchi or wheezes noted. No increased work of breathing, no retractions or nasal flaring. Abdomen/GI: Soft, non-tender, with normal bowel sounds. No distension or tympany. No guarding or rebound. No evidence of tenderness throughout. Back: No spinal tenderness. No costovertebral tenderness. Skin: Warm, dry with normal turgor. Normal color with no rashes, no lesions, and no evidence of cellulitis. MS/ Extremity: Pulses equal, no cyanosis. Neurovascular intact. Full, normal range of motion. Neuro: Awake and alert, GCS 15, oriented to person, place, time, and situation. Cranial nerves II-XII grossly intact. Motor strength 5/5 in all extremities. Sensory grossly intact. Psych: Awake, alert, with orientation to person, place and time. Behavior, mood, and affect are within normal limits Vital Signs: 08/01 21:49 BP 142 / 91; Pulse 109; Resp 18; Temp 100.6(O); Pulse Ox 98% ; Weight 81.65 kg; Height vc1 5 ft. 4 in. ; Pain 2/10; 23:10 BP 139 / 86; Pulse 101; Resp 17 S; Pulse Ox 99% on R/A; lg3 08/02 02:16 BP 141 / 88; Pulse 97; Resp 17 S; Temp 98.9(O); Pulse Ox 100% on R/A; lg3 08/01 21:49 Body Mass Index 30.90 (81.65 kg, 162.56 cm) vc1 08/01 21:49 Pain Scale: Adult vc1 Merced Coma Score: 01:53 Eye Response: spontaneous(4). Motor Response: obeys commands(6). Verbal Response: sp4 oriented(5). Total: 15. MDM: 08/01 21:41 Patient medically screened. sp4 08/02 01:53 Differential diagnosis: hypertensive headache, hypoglycemia, migraine, tension sp4 headache, vasomotor headache. Data reviewed: vital signs, nurses notes, lab test result(s), Flu: positive. ED course: Patient is a positive for Influenza A . 08/01 21:40 Order name: COVID-19/FLU A+B; Complete Time: 01:53 sp4 08/01 22:04 Order name: COVID-19 SARS RT PCR; Complete Time: 23:47 vc1 08/01 22:05 Order name: UAM; Complete Time: 00:24 vc1 08/01 22:08 Order name: BMP; Complete Time: 00:24 sp4 08/01 22:08 Order name: Saline Lock; Complete Time: 22:58 sp4 Administered Medications: 08/01 22:58 CANCELLED (Physician Discretion): [id number] mg PO once lg3 23:12 Drug: Cyclobenzaprine PO 10 mg PO once Route: PO; lg3 08/02 02:16 Follow up: Response: No adverse reaction; Marked relief of symptoms lg3 08/01 23:12 Drug: NS 0.9% IV 1000 ml IV at 1 bolus Per protocol; 1000 mL bolus Route: IV; Rate: 1 lg3 bolus; Site: left upper arm; 08/02 02:16 Follow up: IV Status: Completed infusion; IV Intake: 1000ml lg3 08/01 23:13 Drug: Ketorolac IVP 30 mg IVP once Route: IVP; Site: left upper arm; lg3 08/02 02:16 Follow up: Response: No adverse reaction; Marked relief of symptoms lg3 08/01 23:13 Drug: metoCLOPramide IVP 10 mg IVP once; over 1 to 2 minutes Route: IVP; Site: left [facility] upper arm; 08/02 02:16 Follow up: Response: No adverse reaction; Marked relief of symptoms lg3 08/01 23:13 Drug: diphenhydrAMINE IVP 25 mg IVP once Route: IVP; Site: left upper arm; lg3 08/02 02:16 Follow up: Response: No adverse reaction; Marked relief of symptoms lg3 00:26 CANCELLED (Physician Discretion): diazepam5 mg IVP once lg3 00:26 Not Given (Physician Discretion): ondansetron 4 mg IVP once; over 2 minutes lg3 Disposition Summary: 08/02/23 01:59 Discharge Ordered Notes: Location: Home sp4 Problem: new sp4 Symptoms: have improved sp4 Condition: Stable sp4 Diagnosis - Other specified viral diseases sp4 - Influenza A, acute viral illness, fever, headache, sp4 Followup: sp4 - With: Private Physician - When: 7 - 10 days - Reason: Recheck today's complaints Discharge Instructions: - Discharge Summary Sheet sp4 - Influenza, Adult, Theo-ot-Bhvt sp4 Forms: - Patient Portal Instructions sp4 Prescriptions: - dextromethorphan-guaifenesin 10-200 mg Oral capsule - take 2 capsule ORAL route every 6 hours PRN cough; 60 capsule; Refills: 0, sp4 Product Selection Permitted - Ibuprofen 800 mg Oral Tablet - take 1 tablet ORAL route every 8 hours As needed take with food; 30 tablet; sp4 Refills: 0, Product Selection Permitted - promethazine 25 mg Oral Tablet - take 1 tablet ORAL route every 6 hours As needed; 20 tablet; Refills: 0, sp4 Product Selection Permitted - Tamiflu 75 mg Oral capsule - take 1 tablet ORAL route every 12 hours for 5 days; 10 tablet; Refills: 0, sp4 Product Selection Permitted Signatures: Dispatcher [employer] Lizeth Gooden, RN RN lg3 Chuyita Dove RN RN vc1 Jarrett Coy MD MD sp4 Corrections: (The following items were deleted from the chart) 08/01 22:58 22:08 Acetaminophen PO 1000 mg PO once ordered. sp4 lg3 08/02 00:26 08/01 23:14 Diazepam IVP 5 mg IVP once ordered. lg3 lg3 08/02 00:45 08/01 22:05 Influenza Screen (A \T\ B)+BA.LAB.BRZ ordered. EDMS EDMS
[2023-08-02 02:24] VITALS: BP 141/88; TEMP 98.9; O2SAT 100
== END 2023-08-02 02:18 | disposition home or self-care (01) ==
LOC: ER 21:27
DX: J10.1 Influenza due to other identified influenza virus with other respiratory manifestations (principal); R51.9 Headache, unspecified; Z11.52 Encounter for screening for COVID-19
CPT/HCPCS: 0240U; 36415; 80048; 81001; 87635; 96361; 96374; 96375; 99284; J1200; J2765; J7030